=== PATIENT | female | born 1940 | race Caucasian/White ===

== ENCOUNTER → 2017-10-12 12:08 | Outpatient (CLI) | payer MEDICARE, OTHER, SELFPAY ==
[2017-10-12 13:07] LABS: Alanine Aminotransferase 17 U/L (12-78); Albumin Level 3.5 gm/dL (3.4-5.0); Albumin/Globulin Ratio 0.9 (1.1-1.8); Anion Gap 9.8 mEq/L (5-15); Aspartate Amino Transferase 12 U/L (15-37); Bilirubin,Total 0.4 mg/dL (0.2-1.0); Blood Urea Nitrogen 16 mg/dL (7-18); Calcium 8.7 mg/dL (8.5-10.1); Carbon Dioxide 27 mmol/L (21.0-32.0); Chloride 102 mmol/L (98-107); Creatinine,Serum 0.64 mg/dL (0.55-1.02); Estimated Glomerular Filt Rate 90 ml/min (>60); GFR (African American) 109 ML/MIN (>60); Globulin 3.9 gm/dl (1.3-3.2); Glucose 138 mg/dL (74-106); Potassium 3.8 mmoL/L (3.5-5.1); Sodium 135 mmol/L (136-145); Total Protein,Serum 7.4 gm/dL (6.4-8.2); Triglycerides 100 mg/dL (30-200)
[2017-10-12 13:08] LABS: Alkaline Phosphatase 105 U/L (46-116); Chol/HDL Ratio 2.3 (1-3.5); Cholesterol 141 mg/dL (140-200); HDL Cholesterol 61 mg/dL (29-89); LDL Cholesterol 60 mg/dL (0-130); VLDL Cholesterol 20 mg/dL (0-40)
[2017-10-12 13:46] LABS: Thyroid Stimulating Hormone < 0.01 uIU/ml (0.358-3.740)
== END ==
PROVIDERS: Visit Provider Family Medicine
DX: E11.9 Type 2 diabetes mellitus without complications (principal); E78.4 Other hyperlipidemia; E03.9 Hypothyroidism, unspecified; I10 Essential (primary) hypertension
CPT/HCPCS: 36415; 80053; 80061; 83036; 84443

== ENCOUNTER → 2017-12-10 08:34 | Outpatient (CLI) | payer MEDICARE, OTHER, SELFPAY ==
--- NOTE | 2017-12-10 08:38 | XR_ITS ---
XR elbow LT min 3V Ordering Physician: Eduardo Mckinney MD Patient Age: 77 years: Female HISTORY: ITS.REASON: Left radial head fracturefollow-up fracture TECHNIQUE: 3 views left elbow COMPARISON :November 25, 2017 left elbow radiograph FINDINGS The fracture line through the radial head is remains evident but stable position. The very subtle step-off at the articular cortex of radial head again noted . Very subtle mild depression of this fracture along the lateral aspect radial head again noted but stable. Joint effusion anterior and posterior fat-pad. The distal radius intact. Ulna intact. Joint space remains well maintained. The joint effusion persist with mild elevation of anterior fat pad still evident. IMPRESSION fracture radial head. Stable position.
== END ==
PROVIDERS: PCP Family Medicine; Visit Provider Orthopaedic Surgery
DX: S52.123A Displaced fracture of head of unspecified radius, initial encounter for closed fracture (principal)
CPT/HCPCS: 73080

== ENCOUNTER → 2017-12-31 09:18 | Outpatient (CLI) | payer MEDICARE, OTHER, SELFPAY ==
--- NOTE | 2017-12-31 09:21 | XR_ITS ---
XR elbow LT min 3V HISTORY: Follow-up fracture ITS.REASON: Left radial head fracture ORDERING PHYSICIAN: Eduardo Mckinney MD PATIENT AGE: 77 years COMPARISON: 12/10/2017 FINDINGS: Nondisplaced radial head fracture once again noted with intra-articular involvement. The fracture line is somewhat less apparent indicating healing. IMPRESSION: Healing radial head fracture nondisplaced
== END ==
PROVIDERS: PCP Family Medicine; Visit Provider Orthopaedic Surgery
DX: S52.123A Displaced fracture of head of unspecified radius, initial encounter for closed fracture (principal)
CPT/HCPCS: 73080

== ENCOUNTER → 2018-03-30 10:47 | Outpatient (CLI) | payer MEDICARE, OTHER, SELFPAY ==
--- NOTE | 2018-03-30 10:50 | MM_ITS ---
MM Dig screening mamm BI w/CAD ORDERING PHYSICIAN : Isacc Roberson MD PATIENT AGE: 77 years GENDER: Female COMPARISON: October 2016 and September 2013 screening bilateral mammogram also November 2010 of INDICATION: ITS.REASON: SCREENING no hormones. No new complaints. Previous cyst aspiration with left breast with? Precancer cells? As Noted on history requires clinical correlation TECHNIQUE: Standard CC and MLO images were obtained. R2 CAD reviewed. FINDINGS: Lower density breast bilaterally with generalized fatty replacement and minimal residual fibroglandular elements Barely evident minor nodularity at or just deep to skin both inferior-most left & right breast similar to previous study. No significant new findings or change. Minor Benign feature can be followed. No significant new areas concern. No suspicious mass. No dominant mass. No subdural suspicious calcifications. IMPRESSION: No new findings of significant concern. . Stable mammogram vs last year study Follow follow-up in one year recommended BI-RADS Category: 2 Benign Finding(s) RECOMMENDED FOLLOW-UP: 1YR 1 YEAR FOLLOW-UP (A letter has been sent to the patient regarding results of the study.)
== END ==
PROVIDERS: PCP Family Medicine; Visit Provider Family Medicine
DX: Z12.31 Encounter for screening mammogram for malignant neoplasm of breast (principal)
CPT/HCPCS: 77067

== ENCOUNTER → 2018-04-11 09:22 | Outpatient (CLI) | payer MEDICARE, OTHER, SELFPAY ==
--- NOTE | 2018-04-11 09:27 | XR_ITS ---
. DEXA DEXA SCAN.-BONE DENSITY STUDY HIPS AND LUMBAR SPINE HISTORY: Postmenopausal female 77-year-old female takes thyroid medication. Previous arm fracture 10 years ago TECHNIQUE: DEXA scan hip and lumbar spine The most complete data summary and color graphic presentation of the today's ( and any prior ) DEXA findings are available in PACS. Definition and treatment guidelines included. COMPARISON: None listed No previous studies. LUMBAR SPINE:.Normal bone density L2 vertebral body demonstrates the lowest T score -0.9 with BMD1.093 g/cm sq Overall mean lumbar L1-L4 T score -0.3 with BMD1.149 g/cm sq . HIPS: Femoral neck density is best predictor of hip fracture risk . Left femoral neck demonstrates the lowest T score = 2.0 with BMD0.764 g/cm sq . . Right femoral neck T score = -2.0 with BMD 0.766 Averaging all regions yields today's overall Hip Mean T score -0.9 with BMD0.89 g/cm sq .. IMPRESSION------ 1. LUMBAR SPINE: Normal bone density overall T score = -0.3; & each individual vertebral with normal bone density 2. HIPS: Overall normal bone density, Both right & left femoral neck T score = -2.0 reflecting osteopenia WHO criteria for post-menopausal, Women: Normal: T-score at or above -1 SD Osteopenia: T-score between -1 and -2.5 SD Osteoporosis: T-score at or below -2.5 SD
[2018-04-11 11:13] LABS: Hemoglobin A1C 7.5 % (0.0-7.0)
[2018-04-11 11:45] LABS: Alanine Aminotransferase 18 U/L (12-78); Albumin Level 3.7 gm/dL (3.4-5.0); Albumin/Globulin Ratio 1.1 (1.1-1.8); Alkaline Phosphatase 105 U/L (46-116); Anion Gap 12.2 mEq/L (5-15); Aspartate Amino Transferase 10 U/L (15-37); Bilirubin,Total 0.4 mg/dL (0.2-1.0); Blood Urea Nitrogen 9 mg/dL (7-18); Calcium 8.7 mg/dL (8.5-10.1); Carbon Dioxide 29 mmol/L (21.0-32.0); Chloride 106 mmol/L (98-107); Chol/HDL Ratio 2.8 (1-3.5); Cholesterol 171 mg/dL (140-200); Creatinine,Serum 0.67 mg/dL (0.55-1.02); Estimated Glomerular Filt Rate 86 ml/min (>60); GFR (African American) 104 ML/MIN (>60); Globulin 3.5 gm/dl (1.3-3.2); Glucose 170 mg/dL (74-106); HDL Cholesterol 61 mg/dL (29-89); LDL Cholesterol 81 mg/dL (0-130); Potassium 4.2 mmoL/L (3.5-5.1); Sodium 143 mmol/L (136-145); Thyroid Stimulating Hormone 0.66 uIU/ml (0.358-3.740); Total Protein,Serum 7.2 gm/dL (6.4-8.2); Triglycerides 143 mg/dL (30-200); VLDL Cholesterol 29 mg/dL (0-40)
== END ==
PROVIDERS: PCP Family Medicine; Visit Provider Family Medicine
DX: S42.402S Unspecified fracture of lower end of left humerus, sequela (principal); E11.9 Type 2 diabetes mellitus without complications; E03.9 Hypothyroidism, unspecified; I10 Essential (primary) hypertension; Z78.0 Asymptomatic menopausal state
CPT/HCPCS: 36415; 77080; 80053; 80061; 83036; 84443

== ENCOUNTER → 2018-05-26 12:06 | Outpatient (CLI) | payer MEDICARE, OTHER, SELFPAY ==
--- NOTE | 2018-05-26 12:11 | XR_ITS ---
XR knee RT 4V HISTORY: Anterior right knee pain, history of prior injury ITS.REASON: 4 views weightbearing ORDERING PHYSICIAN: Aly Hummel MD PATIENT AGE: 77 years COMPARISON: None FINDINGS: No acute fracture or dislocation is evident. There are severe osteoarthritic changes of the medial compartment and patellofemoral joint with loss of joint space medially and prominent osteophytes medially and at the patellofemoral joint. There is mild medial angulation of the tibia. IMPRESSION: Severe osteoarthritis of the medial compartment and patellofemoral joint
== END ==
PROVIDERS: PCP Family Medicine; Visit Provider Orthopaedic Surgery
DX: M25.561 Pain in right knee (principal)
CPT/HCPCS: 73564

== ENCOUNTER → 2018-08-10 12:48 | Outpatient (POV) | payer MEDICARE, OTHER, SELFPAY | DX: Z00.00 Encounter for general adult medical examination without abnormal findings (principal) ==

== ENCOUNTER → 2018-09-02 11:41 | Outpatient (CLI) | payer MEDICARE, OTHER, SELFPAY ==
--- NOTE | 2018-09-02 11:48 | XR_ITS ---
XR chest 2V HISTORY: ITS.REASON: HTN ORDERING PHYSICIAN: Isacc Roberson MD PATIENT AGE: 77 years COMPARISON: 04/14/2016 FINDINGS: Unremarkable cardiovascular structures. All there is increased density overlying the left aspect of the heart and may be due to summation artifact from overlying costochondral markings and vessels. No definite lobar consolidation or collapse. There is ankylosis of the thoracic spine with no acute fracture. There are degenerative changes of the acromioclavicular joints. IMPRESSION: No acute finding
== END ==
PROVIDERS: PCP Family Medicine; Visit Provider Family Medicine
DX: Z01.810 Encounter for preprocedural cardiovascular examination (principal)
CPT/HCPCS: 71046; 93005

== ENCOUNTER → 2018-10-04 13:44 | Outpatient (CLI) | payer MEDICARE, OTHER, SELFPAY ==
[2018-10-04 13:47] LABS: Microscopic, Urine URINE MICROSCOPIC (MICROSCOPIC)
[2018-10-04 14:01] LABS: Appearance,Urine CLEAR (Clear); Bilirubin,Urine Negative (Negative); Blood, Urine Negative (Negative); Color,Urine YELLOW (Yellow); Glucose,Urine (UA) Negative (Negative); Ketones,Urine Negative (Negative); Leukocyte Esterase,Urine Negative (Negative); Nitrate,Urine Negative (Negative); Protein,Urine 1+ (Negative); Specific Gravity, Urine 1.015 (1.005-1.030); Urobilinogen,Urine 0.2 EU/dl (0.2)
[2018-10-04 14:07] LABS: Basophils % 0.6 % (0.1-2.0); Eosinophils # 0.1 K/mm3 (0.0-0.4); Eosinophils % 2.1 % (0.1-12.0); Hematocrit 39.2 % (37.0-47.0); Hemoglobin 12.7 g/dL (12.2-16.2); Lymphocytes # 2.1 K/mm3 (0.7-4.5); Lymphocytes % 32.5 % (10-50); Mean Corpuscular HGB Conc 32.5 g/dL (31.8-35.4); Mean Corpuscular Hemoglobin 29.3 pg (27.0-31.2); Mean Corpuscular Volume 90.2 fl (81-99); Mean Platelet Volume 7.2 fl (7.4-10.4); Monocytes # 0.4 K/mm3 (0.1-1.0); Monocytes % 5.6 % (1.7-9.3); Neutrophils # 3.7 K/mm3 (1.8-7.8); Neutrophils % 59.2 % (37.0-80.0); Platelet Count 317 K/mm3 (142-424); Red Blood Count 4.34 M/mm3 (4.20-5.40); Red Cell Distribution Width 13.9 % (11.5-17.5); White Blood Count 6.3 K/mm3 (4.8-10.8)
[2018-10-04 14:08] LABS: Bacteria,Urine Trace /lpf; Squamous Epithelial Cell,Urine Occasional #/hpf (0-5); WBC,Urine Occasional #/hpf (0-3)
[2018-10-04 15:15] LABS: Alanine Aminotransferase 18 U/L (12-78); Albumin Level 3.8 gm/dL (3.4-5.0); Alkaline Phosphatase 105 U/L (46-116); Anion Gap 14.8 mEq/L (5-15); Aspartate Amino Transferase 13 U/L (15-37); Bilirubin,Total 0.4 mg/dL (0.2-1.0); Blood Urea Nitrogen 9 mg/dL (7-18); Calcium 9.6 mg/dL (8.5-10.1); Carbon Dioxide 29 mmol/L (21.0-32.0); Chloride 103 mmol/L (98-107); Creatinine,Serum 0.77 mg/dL (0.55-1.02); Estimated Glomerular Filt Rate 73 ml/min (>60); GFR (African American) 88 ML/MIN (>60); Globulin 3.7 gm/dl (1.3-3.2); Glucose 115 mg/dL (74-106); Potassium 3.8 mmoL/L (3.5-5.1); Sodium 143 mmol/L (136-145); Total Protein,Serum 7.5 gm/dL (6.4-8.2)
== END ==
PROVIDERS: Visit Provider Orthopaedic Surgery
DX: Z01.818 Encounter for other preprocedural examination (principal)
CPT/HCPCS: 36415; 80053; 81001; 85025

== ENCOUNTER 2018-10-17 06:06 | Inpatient (IN) ==
--- NOTE | 2018-10-17 07:07 | Progress Note ---
[facility] Anesthesia Checklist - Patient Identification Patient Identification: Arm Band, Verbal (Name & ) - Structural Data Admitted From: Home Planned Operative Procedure/s: Right TKA Consent for Planned Operative Procedure(s) Verified: Yes Verified Documents: Surgical Consent, History and Physical - NPO Status Verified Time NPO: 23:00 - Chart Verification Results Verified: CBC, BMP - Additional verifications Anesthesia Reactions: No - Airway Assessment C-Spine Mobility Assessed: Yes TMJ Mobility Assessed: Yes Dentition: Good Dentition (Missing teeth, crowns) - Neurological Assessment Level of Consciousness: Awake Hx Seizures: No Numbness or tingling in extremities: No - Anesthesia Plan Anesthesia Risk discussed: Yes Anesthesia Plan: Verified ASA Class: III Anesthesia Type: General (with Femoral/sciatic nerve block) [facility] History I have reviewed the patient's past medical history: Yes Medical History: Reports:: Cancer, Diabetes Mellitus Type 2, Hyperlipidemia, Hypertension, Osteoporosis Denies:: Aneurysm, Anxiety, Arrhythmia, Atrial Fibrillation, Chronic Obstructive Pulmonary Disease (COPD), Cerebrovascular Accident, Diabetes Mellitus Type 1, Internal Pacemaker, MRSA, Myocardial Infarction, Seizures *Have you ever received a pneumonia vaccine?: Yes *Have you received a flu vaccine this season?: Yes Other Medical History: Reports: Arthritis, Hypothyroidism, Osteoporosis, Other (Obesity). Denies: Blood Transfusion Reaction Laterality Cases: Left: Total Knee Replacement, Right: Arthroscopy Knee Other Surgeries: Yes: Hysterectomy-Total, Thyroidectomy. No: Pacemaker Amputation: No Fractures: No - *Social History Educational Level: Completed High School Smoking Status: Never smoker Alcohol Intake: never Alcohol Intake Frequency:: other *Occupational Status:: retired Housing: house Household Members: none *Travel in the last 8 weeks: None - Psychiatric History Expresses thoughts of harming self/others: None Suicide Plan Description: No Plan Pschychiatric History:: Denies:: Anxiety Yazidi Healthcare Practices: Jehovah Witness, no blood products Family Hx:: Cancer, Diabetes
--- NOTE | 2018-10-17 11:43 | Progress Note ---
[facility] Anesthesia Record Part I Intake, IV Amount: 2,200 Estimated blood loss (mL): 125 Urine output (mL): 400 Blood Pressure: 151/78 SaO2: 93 Pulse Rate: 89 Respiratory Rate: 12 Temperature: 99 F Patient is:: Awake, Stable Stable to PACU at:: 11:40
--- NOTE | 2018-10-17 11:44 | Progress Note ---
[facility] Anesthesia Record Part II Discharge Time: 12:10 Destination: floor PACU nurse assessment reviewed?: Yes Patient Condition:: Good Anesthesia Complications:: None Swallowing reflex intact?: Yes Cyanosis?: No
--- NOTE | 2018-10-17 12:49 | Operative Note ---
Date of procedure: 10/17/18 Pre-op Diagnosis:: Advanced degenerative arthritis, right knee Post-op Diagnosis:: Advanced degenerative arthritis, right knee Procedure performed:: Cemented total knee arthroplasty, right Surgeon:: Aly Hummel MD Entertainer Or Variety Artist(s):: Estefani Blas DISTRIBUTOR OPERATOR:: Dennis Ash Anesthesia: GETA, regional Estimated blood loss (mL): 20 Clinical Note:: Patient is a 78-year-old female with end-stage osteoarthritis and [id number] tricompartmental osteoarthritis with a progressive varus deformity and flexion contracture presented with unremitting severe pain not relieved by conservative management. The pain is advanced to the point that it is becoming a hazard for her with risk of falling and injuring herself. Total knee arthroplasty is indicated to relieve the pain, improve function, reduce the risk of falls and improve quality of life. She previously had a successful total knee arthroplasty on the left side few years ago. Please refer to my office note for full details. Operative findings:: As noted on the preoperative evaluation, the knee joint had a 15 degrees of f ixed flexion and fixed varus deformity. Preoperative knee range of flexion under anesthesia was 15-100 of flexion only. As seen on the x-rays, there are advanced degenerative changes over all 3 compartments with [id number] appearance; the medial and patellar compartments are the most severely involved of the 3 compartments. The menisci and cruciate ligaments are significantly degenerated. There is extensive osteophyte formation over all 3 compartments. The intercondylar notch was almost obliterated and filled with osteophytes. There were also significant osteophytes over the posterior aspect of the femoral condyles. Overall bone quality is good. Operative note:: On the day of the surgery the patient and her family were seen in the preoperative area. I have reviewed the clinical and x-ray findings with the patient. I again discussed the diagnosis, natural history and management options in detail including both nonsurgical and surgical. She has end-stage degenerative arthritis of her RIGHT knee and has failed to respond satisfactorily to conservative management so far and has opted for a RIGHT total knee arthroplasty. She has had a successful left total knee arthroplasty few years ago. Her right knee joint is stiff and painful, and is limiting her mobility, ADLs and quality of life. Also her right knee gives out and she is at risk of falls resulting in fractures. She mobilizes with a cane as needed. We again discussed the details of the procedure, risks and benefits and alternatives in detail. The complications discussed include but are not limited to infection, injury to nerves and blood vessels including injury to popliteal artery, injury to tendons and ligaments, DVT and PE, fat embolism, intraoperative fracture, limb length inequality, patella fracture, patellofemoral instability, patellar clunk syndrome, quadriceps and patellar tendon rupture, implant failure, component loosening, periprosthetic femur and tibia fractures, stiffness(arthrofibrosis), limp, incomplete relief of pain, incomplete functional recovery, likely need for further surgery in future including revision and anesthetic complications including heart attack, stroke and even . We discussed how any of these events can be devastating. Patient is Gnosticism and indicated to us that she does not want to receive any blood transfusion or blood products. We have discussed nonsurgical alternatives as well. Patient understands wishes to proceed with a RIGHT total knee arthroplasty and I believe that she is fully informed as to the risks, benefits, and alternatives including nonsurgical alternatives. We also discussed the postoperative course including the rehab and physical therapy required. She lives by herself and wants to go to a assisted facility for rehab after surgery. A physical examination was performed and documented. Patient understood the risks, agreed to proceed with surgery, signed the consent form and no guarantees or assurances were given or implied. The limb was appropriately marked and initialed by me. The patient was then brought to the operating room and a general anesthesia was administered by the tech brazer tester. Prior to that she had femoral and sciatic nerve blocks in the pre-anesthetic area. The patient was then positioned supine on the operating table. All the bony prominences were appropriately padded. A well-padded tourniquet cuff was placed high over the upper thigh. The RIGHT knee was then prepped with isopropyl alcohol followed by chlorhexidine and draped in the usual sterile fashion. Prior to this, patient had used Hibiclens for a total of 5 days prior to the surgery and also used topical intranasal Bactroban. The entire operative team wore isolation suits and the Operating Room traffic was controlled. The skin incision was marked for a medial parapatellar approach to the knee joint. The entire operative site was sealed off with Ioban drape. A preprocedure timeout was performed as per hospital protocol. At the start of the procedure administration of 2 g of prophylactic IV Ancef was confirmed with the anesthetic team. Also patient received 1 g of IV tranexamic acid before starting the procedure to reduce the postoperative blood loss. A preprocedure timeout was performed as per hospital protocol. The limb was exsanguinated with Esmarch bandage, the knee joint flexed beyond 90 and the tourniquet cuff was inflated to 325 mm Hg. Please see the nursing records for a total tourniquet time. I then made a midline incision utilizing a #10 scalpel blade. Electrocautery was used to seal off subcutaneous vessels. The extensor mechanism was exposed, marked and a curvilinear incision made for a medial parapatellar approach using the scalpel blade. The patella was everted carefully and the fat pad resected to allow sufficient visualization of the proximal tibia. Extensive osteophyte formation was noted over all 3 compartments. The osteophytes were removed with rongeurs. The intercondylar notch was filled with osteophytes and the anterior cruciate ligament noted to be degenerative. The menisci were also degenerate and the anterior aspects of both menisci were r esected. An appropriate medial release was performed with the knife and Valerie elevator. A step drill was used to open the intramedullary canal and the distal cutting guide was placed. The jig was pinned into position and the intramedullary guide michela removed. The distal cut was made at 5 degrees of valgus and then the posterior referencing sizing jig was placed. The femur sized best at a size 6 femur for the David persona system. Drill holes were made for the 4-in-1 cutting block in 3 degrees of external rotation. We then placed the 4-in-1 cutting block in position and the cross pins were added stabilizing the block. The natalie wing utilized to ensure notching of the anterior cortex would not occur. The anterior cut was made followed by the posterior cut then the posterior chamfer and finally the anterior chamfer cuts in that order. Soft tissue was protected throughout with careful retraction using the Z retractors. We checked for trueness of the cuts and then moved on to the tibia. The extra medullary guide was placed and aligned from the medial one third of the tibial plateau down to the second metatarsal base. We pinned cutting block in position for minimal resection of the tibia from the medial side which was more severely involved with arthritis, checked the alignment, protected the soft tissues with appropriate retractors and resected with the Lex saw. The resected tibial plateau articular surface was removed and sized it at a size F. We ensured correctness of the cut and correct posterior slope and carefully preserved the posterior cruciate ligament. Using the laminar furnace caretaker to distract the bones, we carefully resected the remaining portions of the medial and lateral menisci, removed the osteophytes from the posterior femoral condyles and the medial tibial plateau. We then checked the flexion and extension gaps and found them to be equal and well balanced. We trialed the femur and the tibia with a polyethylene insert and ranged the knee to ensure full flexion and extension and checked for ligamentous stability. We then everted the patella and measured the thickness with calipers. The patella measured 21 mm thick and a minimal resection (8mm) of the patella was carried out using the appropriate cutting guide. I then made the holes for a 3 pegged patellar button using the patella peg drill guide. We had lateralized the femur and medialized the patella intentionally for a better patellar tracking. We placed trial components and noted that a 12 mm thick polyethylene to fit best. This gave us appropriate range of motion with proper ligamentous stability. We allowed this to be free- floating and then checked it and made sure it was in appropriate position in relation to the tibial tubercle. We also used tibial alignment michela to check for satisfactory position of the base plate and markings were made with electrocautery on the proximal tibia. We then completed the femoral preparation by making lug holes for the femoral component and removed the trial components leaving the tibial baseplate in position. I then pinned the tibial base plate to the top of the tibia in correct alignment and completed the drilling and broaching of the proximal tibia. We then removed the baseplate and drilled multiple holes into the subchondral sclerotic bone of the medial tibia with a small trocar tipped pin to augment cement fixation. I then placed an appropriately prepared bone plug into the hole in the distal femur. I then copiously irrigated the knee with pulse lavage and then dried the cut surfaces. We then cemented the tibial tray, the femoral component, and placed a 12 mm trial polyethylene insert and brought the knee into full extension. We then cemented the 3 pegged patella button and held it with a clamp. We allowed the ce ment to set and then inspected the knee joint and removed excess cement with an osteotome. We then placed the 12 mm definitive polyethylene tibial insert ensuring that the dovetails fit appropriately and that the polyethylene was down and seated into the tibial tray properly. The knee joint was put through range of motion and noted to be stable in both AP and ML direction; the patella was noted to be tracking appropriately with no thumb technique. The knee joint was then soaked with dilute Betadine (0.35 percent) solution for 3 minutes followed by suctioning of the solution and pulsatile lavage with the 1 L of normal saline. The tourniquet was deflated and hemostasis obtained with diathermy cautery. Another gram of tranexamic acid was given intravenously by the tech brazer tester at the time of deflating the tourniquet. The knee joint was again thoroughly irrigated with the pulse lavage and good hemostasis was confirmed before proceeding with wound closure. The capsule/extensor mechanism w as closed with #1 Vicryl [id number] sutures ensuring a watertight closure. Next the subcutaneous tissue was closed with 2-0 Vicryl interrupted sutures. The skin was closed with subcuticular 4-0 Monocryl sutures, Dermabond and Steri- Strips. Sterile dressings were applied consisting of Silverlon dressing, ABDs, soft roll and secured in place with Klever wrap. No drains were placed. The patient was then transferred from the operating table onto the bed. The tibialis posterior and dorsalis pedis pulses were noted 2+ with good capillary refill in the foot. The patient was then reversed from the anesthetic and transported to the postoperative recovery area in a stable condition. Patient tolerated the procedure well and there were no immediate complications. The swab, needle and instrument counts were correct, according to the scrub team, at the end of the procedure. Portable x-rays of the RIGHT knee 3 views were obtained in the recovery area which showed the components were well fixed in a satisfactory position without any complications. The knee was placed in a knee immobilizer which should be continued when standing and walking, until she regains full quadriceps control. Postoperatively, institute and continue standard precautions and physical therapy for a standard total knee arthroplasty starting on postoperative day 1. Patient can be mobilized full weightbearing as tolerate d. Implants: David Persona, 5 degrees stemmed RIGHT tibial baseplate- size F David Persona all poly-patellar component- 32 mm/8.5 mm David Persona cruciate-retaining standard femoral component, size 6 RIGHT David Persona Vivacit-E highly cross-linked polyethylene Medial Congruent articular surface,RIGHT size E-F/CR x 12 mm Biomet Refobacin bone cement R x2. Industry sales representative door to door: Michael Li ([employer]) Condition: stable Disposition: PACU Specimens:: None Complications:: None
--- NOTE | 2018-10-17 13:08 | Pharmacy Consult Notes ---
[facility] Pharmacy VTE Monitoring - Patient Demographics Admission date: 10/17/18 Report Date: 10/17/18 Time: 13:08 Allergies/Adverse Reactions: Patient Allergies Sulfa (Sulfonamide Antibiotics) [SULFA (SULFONAMIDE ANTIBIOTICS)] Allergy (Mild, Verified 10/14/18 11:49) Hives trimethoprim [From BACTRIM] Allergy (Mild, Verified 10/14/18 11:49) Hives Height: 1.47 m Weight: 76.374 kg - VTE Risk Was VTE Risk Assessment Performed: Yes VTE Score: 6 VTE Risk Level: Moderate Risk - Prophylaxis VTE Prophylaxis Ordered?: Yes Types of VTE Prophylaxis: IPCS Thigh High, Pharmacological Pharmacologic Type: Other (XARELTO) - VTE Diagnosis Confirmed Treatment or plan recommended: Continue Current Treatment
--- NOTE | 2018-10-17 17:19 | Consult Report ---
*Admission Date: 10/17/18 *Chief complaint: S/p total knee replacement *History of present illness: Ms. Ash is a 78-year-old white female with hypertension, diabetes, hyperlipidemia, hypothyroidism, and osteoarthritis. She underwent right total knee arthroplasty per Dr. Hummel today and has been admitted for postop care and rehab. I have been consulted to follow the patient medically and to manage her chronic medical issues. Surgery was relatively uneventful. She is now about 6 hours postop and has no unusual complaints. [facility] [place] History Medical History: Reports:: Diabetes Mellitus Type 2, Gastroesophageal Reflux Disease(GERD), Hyperlipidemia, Hypertension, Osteoporosis Denies:: Aneurysm, Anxiety, Arrhythmia, Atrial Fibrillation, Cancer, Chronic Obstructive Pulmonary Disease (COPD), Cerebrovascular Accident, Diabetes Mellitus Type 1, Internal Pacemaker, MRSA, Myocardial Infarction, Seizures *Have you ever received a pneumonia vaccine?: Yes *Have you received a flu vaccine this season?: Yes Other Medical History: Reports: Arthritis, Hypothyroidism, Osteoporosis, Other (Obesity). Denies: Blood Transfusion Reaction Laterality Cases: Right: Arthroscopy Knee, Bilateral: Total Knee Replacement Other Surgeries: Yes: Hysterectomy-Total (ovaries preserved), Thyroidectomy. No: Pacemaker Amputation: No Fractures: No - *Social History Educational Level: Completed High School Smoking Status: Never smoker Alcohol Intake: never Alcohol Intake Frequency:: other *Occupational Status:: retired Housing: house Household Members: none *Travel in the last 8 weeks: None - Psychiatric History Expresses thoughts of harming self/others: None Suicide Plan Description: No Plan Pschychiatric History:: Reports:: Depression Denies:: Anxiety Denominational Healthcare Practices: Jehovah Witness, no blood products Family Hx:: Cancer, Diabetes Review of Systems - Constitutional Denies fever(s), Denies weight gain, Denies weight loss - Eyes Denies change in vision - ENT Denies bleeding gums, Denies difficulty swallowing - *Cardiovascular Denies chest pain, Denies shortness of breath, Denies irregular heart rhythm - *Respiratory Denies chest congestion, Denies cough, Denies shortness of breath - *Gastrointestinal Denies abdominal pain, Denies change in bowel habits, Denies heartburn - *Genitourinary Denies abnormal vaginal bleeding, Denies pelvic pain, Denies urinary urgency - *Musculoskeletal Reports joint pain (right knee), Denies muscle weakness - Integumentary/Breasts Denies change in skin color, Denies unusual bruising - *Neurologic Denies confusion, Denies memory loss, Denies dizziness - Psychiatric Reports depression, Denies anxiety - Endocrine Denies cold intolerance, Denies heat intolerance, Denies rapid, pounding, or irregular heartbeat - Hematologic/Lymphatic Denies easy bruising - Allergic/Immunologic Reports seasonal runny nose Meds Home Medications Medication Instructions Recorded Confirmed Type amlodipine 10 mg tablet 10 mg PO DAILY 90 Days tab 08/17/17 10/14/18 History bimatoprost 0.01 % eye drops 1 drop OPHTHALMIC HS 90 Days 08/17/17 10/17/18 History brimonidine-timolol 0.2 %-0.5 % 1 drop OPHTHALMIC BID 56 Days 08/17/17 10/14/18 History eye drops fluoxetine 20 mg capsule 20 mg PO DAILY 90 Days cap 08/17/17 10/14/18 History metformin 1,000 mg tablet 1,000 mg PO BID 90 Days tab 08/17/17 10/17/18 History pravastatin 40 mg tablet 40 mg PO HS 90 Days 10/14/17 10/17/18 History Diclofenac Sodium [Voltaren 100gm 2 g TOPICAL QID 10/14/18 10/14/18 History Topical Gel] Ferrous Sulfate [Ferrous Sulfate 325 mg PO BID 10/17/18 10/17/18 History 325mg Tablet] Latanoprost [Xalatan 0.005% Ophth 1 drop OP HS 10/17/18 10/17/18 History Soln 2.5mL] Levothyroxine Sodium 50 mcg PO DAILY 10/17/18 10/17/18 History [Levothyroxine 50mcg (0.05mg) Tab] Meclizine HCl [Meclizine 25mg Tab] 25 mg PO DAILYP PRN 10/17/18 10/17/18 History Pioglitazone HCl 30 mg PO DAILY 10/17/18 10/17/18 History Allergies Allergy/AdvReac Type Severity Reaction Status Date / Time Sulfa (Sulfonamide Allergy Mild Hives Verified 10/14/18 11:49 Antibiotics) [SULFA (SULFONAMIDE ANTIBIOTICS)] trimethoprim [From BACTRIM] Allergy Mild Hives Verified 10/14/18 11:49 Exam Vital signs and Labs for Last 24 Hours: Temp Pulse Resp BP Pulse Ox 97.9 F 83 18 173/80 H 93 L 10/17/18 13:17 10/17/18 13:17 10/17/18 13:17 10/17/18 13:17 10/17/18 13:17 Laboratory Results - last 24 hr 10/17/18 06:42: Blood Type O Negative, Antibody Screen Negative 10/17/18 06:43: POC Glucose 133 H 10/17/18 07:45: Urine Color Yellow, Urine Appearance Clear, Urine pH 7.5, Ur Specific [place] 1.010, Urine Protein Trace, Urine Glucose (UA) Negative, Urine Ketones Negative, Urine Blood Negative, Urine Nitrate Negative, Urine Bilirubin Negative, Urine Urobilinogen 0.2, Ur Leukocyte Esterase Negative, Urine RBC None, Urine WBC None, Ur Squamous Epith Cells None, Urine Bacteria Trace I & O for Last 24 hours: Intake & Output 10/15/18 10/16/18 10/17/18 10/18/18 11:59 11:59 11:59 11:59 Intake Total 2200 / 2200 200 / 200 Output Total 800 / 800 Balance 2200 / 2200 -600 / -600 Weight 151 lb 168 lb 6 oz Narrative: She is resting comfortably in bed. She is drowsy but easily aroused. She is alert and oriented. Color is slightly pale. HEENT is unremarkable except for dry mucous membranes. Neck is supple with no adenopathy, thyromegaly, or bruits. Lungs are clear to auscultation anteriorly. Heart is regular with no murmurs. Abdomen is soft and nondistended with no unusual masses or tenderness. Bowel sounds are present. Lower extremities show no edema. Right knee with surgical dressing in place and polar pack in place. Internal Medicine - CN: Reslt - Labs Labs: Urine 10/17/18 Range/Units 07:45 Urine Color Yellow (Yellow) Urine Appearance Clear (Clear) Urine pH 7.5 (5.0-8.5) Ur Specific [place] 1.010 (1.005-1.030) Urine Protein Trace (Negative) Urine Glucose (UA) Negative (Negative) Assessment and Plan (1) Status post total right knee replacement Current visit: Yes Status: Acute Category: Surgical Code(s): Z96.651 - Presence of right artificial knee joint (2) History of total left knee replacement Current visit: Yes Status: Acute Category: Surgical Code(s): Z96.652 - Presence of left artificial knee joint (3) Type 2 diabetes mellitus Current visit: Yes Status: Acute Category: Medical Code(s): E11.9 - Type 2 diabetes mellitus without complications (4) Hypertension Current visit: Yes Status: Acute Category: Medical Code(s): I10 - Essential (primary) hypertension (5) Hyperlipidemia Current visit: Yes Status: Acute Category: Medical Code(s): E78.5 - Hyperlipidemia, unspecified (6) Hypothyroidism Current visit: Yes Status: Acute Category: Medical Code(s): E03.9 - Hypothyroidism, unspecified (7) Depression Current visit: Yes Status: Acute Category: Medical Code(s): F32.9 - Major depressive disorder, single episode, unspecified (8) Osteoarthritis Current visit: Yes Status: Acute Category: Medical Code(s): M19.90 - Unspecified osteoarthritis, unspecified site (9) History of histoplasmosis Current visit: Yes Status: Acute Category: Medical Code(s): Z86.19 - Personal history of other infectious and parasitic diseases (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 Her maintenance home medications have been reordered appropriately. She will be switched to a diabetic diet. She will also be placed on sliding scale insulin with AC/HS blood sugar checks. Xarelto has been ordered for DVT prophylaxis. Dr. Hummel will manage her physical therapy. We will follow for management of any medical issues that may arise.
[2018-10-18 05:53] LABS: Basophils % 0.3 % (0.1-2.0); Eosinophils % 0.5 % (0.1-12.0); Hemoglobin 11.4 g/dL (12.2-16.2); Lymphocytes # 1.5 K/mm3 (0.7-4.5); Lymphocytes % 17.3 % (10-50); Mean Corpuscular HGB Conc 32.6 g/dL (31.8-35.4); Mean Corpuscular Hemoglobin 28.9 pg (27.0-31.2); Mean Corpuscular Volume 88.5 fl (81-99); Mean Platelet Volume 7.3 fl (7.4-10.4); Monocytes # 0.7 K/mm3 (0.1-1.0); Monocytes % 7.6 % (1.7-9.3); Neutrophils # 6.4 K/mm3 (1.8-7.8); Neutrophils % 74.3 % (37.0-80.0); Platelet Count 309 K/mm3 (142-424); Red Blood Count 3.95 M/mm3 (4.20-5.40); Red Cell Distribution Width 14.1 % (11.5-17.5); White Blood Count 8.6 K/mm3 (4.8-10.8)
[2018-10-18 06:02] LABS: Anion Gap 14.5 mEq/L (5-15); Calcium 8.1 mg/dL (8.5-10.1); Potassium 3.5 mmoL/L (3.5-5.1)
--- NOTE | 2018-10-18 08:28 | Progress Note ---
Internal Medicine - PN: Subj Interval history: She has no unusual complaints this morning. She rested fairly well through the night. She is having appropriate postoperative knee pain which has been managed with the oral hydrocodone. She is tolerating her diet. Blood sugars have been a bit elevated but managed with sliding scale insulin. Also note that her blood pressure has been high. Exam Vital signs and Labs for Last 24 Hours: Temp Pulse Resp BP Pulse Ox 97.9 F 85 20 155/7 H 93 L 10/18/18 07:30 10/18/18 07:30 10/18/18 07:30 10/18/18 07:30 10/18/18 07:30 Laboratory Results - last 24 hr 10/17/18 06:43: POC Glucose 133 H 10/17/18 07:45: Urine Color Yellow, Urine Appearance Clear, Urine pH 7.5, Ur Specific [place] 1.010, Urine Protein Trace, Urine Glucose (UA) Negative, Urine Ketones Negative, Urine Blood Negative, Urine Nitrate Negative, Urine Bilirubin Negative, Urine Urobilinogen 0.2, Ur Leukocyte Esterase Negative, Urine RBC None, Urine WBC None, Ur Squamous Epith Cells None, Urine Bacteria Trace 10/17/18 20:23: POC Glucose 104 10/18/18 05:35: WBC 8.6, RBC 3.95 L, Hgb 11.4 L, Hct 35.0 L, MCV 88.5, MCH 28.9, MCHC 32.6, RDW 14.1, Plt Count 309, MPV 7.3 L, Neut % (Auto) 74.3, Lymph % (Auto) 17.3, [place] % (Auto) 7.6, Eos % (Auto) 0.5, Baso % (Auto) 0.3, Neut # (Auto) 6.4, Lymph # (Auto) 1.5, [place] # (Auto) 0.7, Eos # (Auto) 0.0, Baso # (Auto) 0.0 10/18/18 05:35: Sodium 142, Potassium 3.5, Chloride 104, Carbon Dioxide 27, Anion Gap 14.5, BUN 7, Creatinine 0.84, Estimated Creat Clear 58, Estimated GFR 66, Est GFR ( Amer) 80, Glucose 162 H, Calcium 8.1 L 10/18/18 06:32: POC Glucose 180 H I & O for Last 24 hours: Intake & Output 10/15/18 10/16/18 10/17/18 10/18/18 11:59 11:59 11:59 11:59 Intake Total 2199 / 2199 Output Total 3200 / 3200 Balance 2199 -1188 / -1188 Weight 151 lb 168 lb 6 oz Narrative: She is alert and oriented. Appears in no distress. Lungs are clear. Heart is regular with no ectopy. Abdomen soft and nontender. Right lower extremity shows trace edema. Surgical dressing in place on the right knee. Assessment and Plan (1) Status post total right knee replacement Current visit: Yes Status: Acute Category: Surgical Code(s): Z96.651 - Presence of right artificial knee joint (2) History of total left knee replacement Current visit: Yes Status: Acute Category: Surgical Code(s): Z96.652 - Presence of left artificial knee joint (3) Type 2 diabetes mellitus Current visit: Yes Status: Acute Category: Medical Code(s): E11.9 - Type 2 diabetes mellitus without complications (4) Hypertension Current visit: Yes Status: Acute Category: Medical Code(s): I10 - Essential (primary) hypertension (5) Hyperlipidemia Current visit: Yes Status: Acute Category: Medical Code(s): E78.5 - Hyperlipidemia, unspecified (6) Hypothyroidism Current visit: Yes Status: Acute Category: Medical Code(s): E03.9 - Hypothyroidism, unspecified (7) Depression Current visit: Yes Status: Acute Category: Medical Code(s): F32.9 - Major depressive disorder, single episode, unspecified (8) Osteoarthritis Current visit: Yes Status: Acute Category: Medical Code(s): M19.90 - Uns pecified osteoarthritis, unspecified site (9) History of histoplasmosis Current visit: Yes Status: Acute Category: Medical Code(s): Z86.19 - Personal history of other infectious and parasitic diseases (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 We will add lisinopril to her antihypertensive regimen and continue to monitor her blood pressure closely.
--- NOTE | 2018-10-18 16:14 | Progress Note ---
Subjective Date: 10/18/18 Time: 12:30 Principal diagnosis: Status post total knee arthroplasty, right Interval history: Patient is status post right knee arthroplasty, postoperative day 1. Patient is sitting out on a chair. She says she is doing well and her pain is well controlled with pain medication. No history of any nausea or vomiting. No history of any cough, chest pain, shortness of breath or palpitations. Patient says she is eating and drinking well. PN: Obj Ex Vital signs: Temp Pulse Resp BP Pulse Ox 98.1 F 67 16 138/57 L 92 L 10/18/18 16:00 10/18/18 16:00 10/18/18 16:00 10/18/18 16:00 10/18/18 16:00 Narrative: Laboratory Results - last 24 hr 10/17/18 20:23: POC Glucose 104 10/18/18 05:35: WBC 8.6, RBC 3.95 L, Hgb 11.4 L, Hct 35.0 L, MCV 88.5, MCH 28.9, MCHC 32.6, RDW 14.1, Plt Count 309, MPV 7.3 L, Neut % (Auto) 74.3, Lymph % (Auto) 17.3, [place] % (Auto) 7.6, Eos % (Auto) 0.5, Baso % (Auto) 0.3, Neut # (Auto) 6.4, Lymph # (Auto) 1.5, [place] # (Auto) 0.7, Eos # (Auto) 0.0, Baso # (Auto) 0.0 10/18/18 05:35: Sodium 142, Potassium 3.5, Chloride 104, Carbon Dioxide 27, Anion Gap 14.5, BUN 7, Creatinine 0.84, Estimated Creat Clear 58, Estimated GFR 66, Est GFR ( Amer) 80, Glucose 162 H, Calcium 8.1 L 10/18/18 06:32: POC Glucose 180 H 10/18/18 11:30: POC Glucose 155 H Exam: General appearance: alert, active, awake Cardiovascular: regular rate & rhythm, normal peripheral pulses Respiratory: No respiratory distress noted, speaks in full sentences ABD: soft and non tender Neuro: alert, awake, oriented x 3 On examination of the lower extremities the limb lengths are equal. On examination of the right knee the dressings are clean, dry and intact. Soft tissue compartments are soft. Distal pulses are 2+. Capillary refill is brisk. Sensation is intact light touch throughout. She is actively moving the ankle, foot and the toes. - Urinary Catheter Management Stanton Cath placed during this visit: yes Urethral indwelling: Yes Reason for continuing: Surgical procedure Insertion date: 10/17/18 Insertion time: 07:45 Progress Note: A&P (1) Status post total right knee replacement Status: Acute Current Visit: Yes (2) History of total left knee replacement Status: Acute Current Visit: Yes (3) Type 2 diabetes mellitus Status: Acute Current Visit: Yes (4) Hypertension Status: Acute Current Visit: Yes (5) Hyperlipidemia Status: Acute Current Visit: Yes (6) Hypothyroidism Status: Acute Current Visit: Yes (7) Depression Status: Acute Current Visit: Yes (8) Osteoarthritis Status: Acute Current Visit: Yes (9) History of histoplasmosis Status: Acute Current Visit: Yes (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 I have given her a paper copy of the postoperative x-ray. Advised her to avoid placing pillow behind the knee; use knee immobilizer when weightbearing and walking until she regains full quadriceps control and is able to actively straight leg raise. Continue standard PT/OT protocol for a primary knee replacement. Continue DVT prophylaxis, incentive spirometry and as needed pain medication. Discontinue IV fluids and discontinue the urinary catheter. Care management consult regarding discharge planning. Continue medical management as per Dr. Roberson.
--- NOTE | 2018-10-19 08:25 | Progress Note ---
Internal Medicine - PN: Subj Interval history: She rested well last night. Had some nausea yesterday, resolved with Zofran. No complaints this morning. She is participating with physical therapy and tolerating well. Her bowels have not moved. Exam Vital signs and Labs for Last 24 Hours: Temp Pulse Resp BP Pulse Ox 97.7 F 81 16 131/52 L 96 10/19/18 08:00 10/19/18 08:00 10/19/18 08:00 10/19/18 08:00 10/19/18 08:00 Laboratory Results - last 24 hr 10/18/18 11:30: POC Glucose 155 H 10/18/18 16:44: POC Glucose 153 H 10/18/18 20:25: POC Glucose 154 H 10/19/18 06:36: POC Glucose 108 I & O for Last 24 hours: Intake & Output 10/16/18 10/17/18 10/18/18 10/19/18 11:59 11:59 11:59 11:59 Intake Total 2200 / 2200 2011 1286 / 1286 Output Total 3200 / 3200 800 / 800 Balance 2200 / 2200 -1188 / -1188 486 / 486 Weight 151 lb 168 lb 6 oz Narrative: Alert and oriented. Color is good. Lungs are clear to auscultation. Heart is regular. Abdomen soft and nondistended with no tenderness. Extremities show trace edema of the right leg. Assessment and Plan (1) Status post total right knee replacement Current visit: Yes Status: Acute Category: Surgical Code(s): Z96.651 - Presence of right artificial knee joint (2) History of total left knee replacement Current visit: Yes Status: Acute Category: Surgical Code(s): Z96.652 - Presence of left artificial knee joint (3) Type 2 diabetes mellitus Current visit: Yes Status: Acute Category: Medical Code(s): E11.9 - Type 2 diabetes mellitus without complications (4) Hypertension Current visit: Yes Status: Acute Category: Medical Code(s): I10 - Essential (primary) hypertension (5) Hyperlipidemia Current visit: Yes Status: Acute Category: Medical Code(s): E78.5 - Hype rlipidemia, unspecified (6) Hypothyroidism Current visit: Yes Status: Acute Category: Medical Code(s): E03.9 - Hypothyroidism, unspecified (7) Depression Current visit: Yes Status: Acute Category: Medical Code(s): F32.9 - Major depressive disorder, single episode, unspecified (8) Osteoarthritis Current visit: Yes Status: Acute Category: Medical Code(s): M19.90 - Unspecified osteoarthritis, unspecified site (9) History of histoplasmosis Current visit: Yes Status: Acute Category: Medical Code(s): Z86.19 - Personal history of other infectious and parasitic diseases (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 Blood pressure is improved since starting lisinopril. Stool softener for constipation. Dr. Hummel is planning to discharge her to a swing bed tomorrow for ongoing rehab.
--- NOTE | 2018-10-19 15:49 | Progress Note ---
Subjective Date: 10/19/18 Time: 14:00 Principal diagnosis: Status post total knee arthroplasty, right Interval history: Patient is status post right total knee arthroplasty, postoperative day 2. Patient is is lying down on the bed. She says she is doing well and her pain is well controlled with pain medication. No history of any nausea or vomiting. No history of any cough, chest pain, shortness of breath or palpitations. Patient says she is eating and drinking well. She says she has mobilized well with the physical therapist today and walked all the way up and down the corridor. PN: Obj Ex Vital signs: Temp Pulse Resp BP Pulse Ox 97.7 F 81 16 131/52 L 96 10/19/18 08:00 10/19/18 08:00 10/19/18 08:00 10/19/18 08:00 10/19/18 08:15 Narrative: Laboratory Results - last 24 hr 10/18/18 16:44: POC Glucose 153 H 10/18/18 20:25: POC Glucose 154 H 10/19/18 06:36: POC Glucose 108 10/19/18 11:25: POC Glucose 150 H Exam: General appearance: alert, active, awake Cardiovascular: regular rate & rhythm, normal peripheral pulses Respiratory: No respiratory distress noted, speaks in full sentences ABD: soft and non tender Neuro: alert, awake, oriented x 3 On examination of the lower extremities the limb lengths are equal. On examination of the right knee the dressings are clean, dry and intact. I have reduced the dressings today leaving only the [place] dressing in place. There is no evidence of any bleeding or discharge/strikethrough. There is minimal swelling of the knee on the lower leg as to be expected. Calf is soft and nontender. Distal pulses are 2+. Capillary refill is brisk. Sensation is intact light touch throughout. She is actively moving the ankle, foot and the toes. She just about able to lift the leg off the bed. - Urinary Catheter Management Stanton Cath placed during this visit: yes Urethral indwelling: Yes Reason for continuing: Surgical procedure Insertion date: 10/17/18 Insertion time: 07:45 Progress Note: A&P (1) Status post total right knee replacement Status: Acute Current Visit: Yes (2) History of total left knee replacement Status: Acute Current Visit: Yes (3) Type 2 diabetes mellitus Status: Acute Current Visit: Yes (4) Hypertension Status: Acute Current Visit: Yes (5) Hyperlipidemia Status: Acute Current Visit: Yes (6) Hypothyroidism Status: Acute Current Visit: Yes (7) Depression Status: Acute Current Visit: Yes (8) Osteoarthritis Status: Acute Current Visit: Yes (9) History of histoplasmosis Status: Acute Current Visit: Yes (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 Overall she is doing well and progressing as to be expected at this stage. Advised her to avoid placing pillow behind the knee; use knee immobilizer when weightbearing and walking until she regains full quadriceps control and is able to actively straight leg raise. Continue standard PT/OT as per protocol for a primary knee replacement. Continue DVT prophylaxis, incentive spirometry and as needed pain medication. Patient is likely to be discharged to swing bed status tomorrow. Continue medical management as per Dr. Roberson.
--- NOTE | 2018-10-20 08:17 | Progress Note ---
Internal Medicine - PN: Subj Interval history: No new complaints today. She tolerated physical therapy and made good progress yesterday. Pain is controlled with oral medication. No further complaints of nausea. Exam Vital signs and Labs for Last 24 Hours: Temp Pulse Resp BP Pulse Ox 98.4 F 92 H 18 137/92 H 96 10/20/18 08:00 10/20/18 08:00 10/20/18 08:00 10/20/18 08:00 10/20/18 08:00 Laboratory Results - last 24 hr 10/19/18 11:25: POC Glucose 150 H 10/19/18 16:08: POC Glucose 167 H 10/19/18 20:38: POC Glucose 89 10/20/18 06:17: POC Glucose 134 H I & O for Last 24 hours: Intake & Output 10/17/18 10/18/18 10/19/18 10/20/18 11:59 11:59 11:59 11:59 Intake Total 2200 / 2200 2011 / 2011 1286 / 1286 600 / 600 Output Total 3200 / 3200 800 / 800 675 / 675 Balance 2200 / 2200 -1188 / -1188 486 / 486 -75 / -75 Weight 151 lb 168 lb 6 oz 168 lb 6.013 oz Narrative: She is alert and pleasant and appears in no distress. Lungs are clear to auscultation. Heart is regular with no murmurs. Swelling in the right lower extremity has improved. No calf tenderness or cords. Assessment and Plan (1) Status post total right knee replacement Status: Acute Category: Surgical Code(s): Z96.651 - Presence of right artificial knee joint (2) History of total left knee replacement Status: Acute Category: Surgical Code(s): Z96.652 - Presence of left artificial knee joint (3) Type 2 diabetes mellitus Status: Acute Category: Medical Code(s): E11.9 - Type 2 diabetes mellitus without complications (4) Hypertension Status: Acute Category: Medical Code(s): I10 - Essential (primary) hypertension (5) Hyperlipidemia Status: Acute Category: Medical Code(s): E78.5 - Hyperlipidemia, unspecified (6) Hypothyroidism Status: Acute Category: Medical Code(s): E03.9 - Hypothyroidism, unspecified (7) Depression Status: Acute Category: Medical Code(s): F32.9 - Major depressive disorder, single episode, unspecified (8) Osteoarthritis Status: Acute Category: Medical Code(s): M19.90 - Unspecified osteoarthritis, unspecified site (9) History of histoplasmosis Status: Acute Category: Medical Code(s): Z86.19 - Personal history of other infectious and parasitic diseases (10) [place] blindness Status: Acute Category: Medical Code(s): B73.00 - Onchocerciasis with eye involvement, unspecified - Assessment and plan all Dx Assessment and Plan for all problems:: She is progressing well with therapy but still requires some additional rehab before she is able to return home by herself. For this reason she is being discharged to a swing bed today.
--- NOTE | 2018-10-20 08:45 | Swing Bed Reports ---
*Admission Date: 10/17/18 *Chief complaint: knee pain *History of present illness: Ms. Ash is a 78-year-old white female with hypertension, diabetes, hyperlipidemia, hypothyroidism, and osteoarthritis. She underwent right total knee arthroplasty per Dr. Hummel and was admitted for postop care and rehab. Dr. Roberson was consulted to follow the patient medically and to manage her chronic medical issues. Surgery was relatively uneventful. Hospital Course Hospital Course: The patient was stable postop and appeared comfortable with pain management. Her maintenance home medications were reordered. She was switched to a diabetic diet and placed on sliding scale insulin with AC/HS blood sugar checks. Xarelto was ordered for DVT prophylaxis. Her blood sugars were a bit elevated but this was managed with sliding scale insulin. Her blood pressure was also slightly high. Lisinopril was added to her antihypertensive regimen. Dr. Hummel ordered physical therapy. He advised her to avoid placing a pillow behind her knee and to use her knee immobilizer when weightbearing and walking until she regained full quadricep control and was able to actively straight leg raise. Her IV fluids were discontinued and her Stanton catheter was removed. The patient pa rticipated with physical therapy and was tolerating this well. Her blood pressure did improve with the addition of lisinopril. She had some constipation, therefore a stool softener was ordered. Her pain was controlled with pain medication. She was able to mobilize well with physical therapy and walked all the way up and down the hallway. Dr. Hummel felt she could be discharged to a swing bed for continued rehab. She was discharged to swing bed on 10/20/18. Exam Vital signs and Labs for Last 24 Hours: Temp Pulse Resp BP Pulse Ox 98.4 F 92 H 18 137/92 H 96 10/20/18 08:00 10/20/18 08:00 10/20/18 08:00 10/20/18 08:00 10/20/18 08:00 Laboratory Results - last 24 hr 10/19/18 11:25: POC Glucose 150 H 10/19/18 16:08: POC Glucose 167 H 10/19/18 20:38: POC Glucose 89 10/20/18 06:17: POC Glucose 134 H I & O for Last 24 hours: Intake & Output 10/17/18 10/18/18 10/19/18 10/20/18 11:59 11:59 11:59 11:59 Intake Total 2199 / 2199 1286 / 1286 600 / 600 Output Total 3200 / 3200 800 / 800 675 / 675 Balance 2199 -1188 / -1188 486 / 486 -75 / -75 Weight 151 lb 168 lb 6 oz 168 lb 6.013 oz Narrative: She is alert and pleasant and appears in no distress. Lungs are clear to auscultation. Heart is regular with no murmurs. Swelling in the right lower extremity has improved. No calf tenderness or cords. 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 I certify that post-hospital half-way facility services are required to be given on an inpatient basis because of the need for half-way care on a continuing basis for the condition(s) for which he/she is receiving inpatient hospital services prior to admission to swing bed. I also certify that the resident meets existing SNF level of care definition. - Discharge from Acute Disposition: [facility] Swing Bed Condition: Good Current Home Med List: Home Medications Medication Instructions Recorded Confirmed Type Diclofenac Sodium [Voltaren 100gm 2 g TOPICAL QID 10/14/18 10/14/18 History Topical Gel] Ferrous Sulfate [Ferrous Sulfate 325 mg PO BID 10/17/18 10/17/18 History 325mg Tablet] Latanoprost [Xalatan 0.005% Ophth 1 drop OP HS 10/17/18 10/17/18 History Soln 2.5mL] Levothyroxine Sodium 50 mcg PO DAILY 10/17/18 10/17/18 History [Levothyroxine 50mcg (0.05mg) Tab] Meclizine HCl [Meclizine 25mg Tab] 25 mg PO DAILYP PRN 10/17/18 10/17/18 History Sennosides [Senokot 8.6mg tablet] 8.6 mg PO BIDP PRN tablet 10/20/18 Rx Home Med List for Swing Bed: New Sennosides [Senokot 8.6mg tablet] 8.6 mg PO BIDP PRN tablet PRN Reason: Constipation Continue fluoxetine 20 mg capsule 20 mg PO DAILY 90 Days cap brimonidine-timolol 0.2 %-0.5 % eye drops 1 drop OPHTHALMIC BID 56 Days bimatoprost 0.01 % eye drops 1 drop OPHTHALMIC HS 90 Days metformin 1,000 mg tablet 1,000 mg PO BID 90 Days tab pravastatin 40 mg tablet 40 mg PO HS 90 Days amlodipine 10 mg tablet 10 mg PO DAILY 90 Days tab Diclofenac Sodium [Voltaren 100gm Topical Gel] 2 g TOPICAL QID Meclizine HCl [Meclizine 25mg Tab] 25 mg PO DAILYP PRN PRN Reason: Dizziness Ferrous Sulfate [Ferrous Sulfate 325mg Tablet] 325 mg PO BID Levothyroxine Sodium [Levothyroxine 50mcg (0.05mg) Tab] 50 mcg PO DAILY Latanoprost [Xalatan 0.005% Ophth Soln 2.5mL] 1 drop OP HS No Action Pioglitazone HCl [Actos 30mg tablet] 30 mg PO DAILY Rivaroxaban [Xarelto 10mg tablet] 10 mg PO QPMWM Lisinopril [Zestril 10mg Tab] 10 mg PO DAILY
--- NOTE | 2018-10-20 09:48 | Progress Note ---
Subjective Date: 10/20/18 Time: 08:50 Principal diagnosis: Status post total knee arthroplasty, right Interval history: Patient is status post right total knee arthroplasty, postoperative day 3. Patient is sitting out on a chair. She says she is doing well and her pain is well controlled with pain medication. No history of any nausea or vomiting. Patient says she is eating and drinking well. No history of any distal tingling or numbness. She says she has walked couple of 100 yards with the physical therapist. Overall she is very happy with her progress. She has been discharged to swing bed and now is under care of Dr. Roberson. PN: Obj Ex Vital signs: Temp Pulse Resp BP Pulse Ox 98.4 F 92 H 18 137/92 H 96 10/20/18 08:00 10/20/18 08:00 10/20/18 08:00 10/20/18 08:00 10/20/18 08:00 Narrative: Laboratory Results - last 24 hr 10/19/18 11:25: POC Glucose 150 H 10/19/18 16:08: POC Glucose 167 H 10/19/18 20:38: POC Glucose 89 10/20/18 06:17: POC Glucose 134 H Exam: General appearance: alert, active, awake Cardiovascular: regular rate & rhythm, normal peripheral pulses Respiratory: No respiratory distress noted, speaks in full sentences ABD: soft and non tender Neuro: alert, awake, oriented x 3 On examination of the lower extremities the limb lengths are equal. On examination of the right knee the dressings are clean, dry and intact. Knee range of movements is 5degrees to 60 degrees of flexion. She has weak quadriceps activation and is just about able to lift the leg off the bed. Calf is soft and nontender. Distal pulses are 2+. Capillary refill is brisk. Sensation is intact light touch throughout. She is actively moving the ankle, foot and the toes. 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 Advised her to continue mobilization and physical therapy. Also advised her to avoid placing pillow behind the knee; use knee immobilizer when weightbearing and walking until she regains full quadriceps control and is able to actively straight leg raise. Continue standard PT/OT protocol for a primary knee replacement. Continue DVT prophylaxis, incentive spirometry and as needed pain medication. Continue medical management as per Dr. Roberson.
--- NOTE | 2018-10-21 16:42 | Progress Note ---
Subjective Date: 10/21/18 Time: 15:00 Principal diagnosis: Status post total knee arthroplasty, right Interval history: Patient is status post right total knee arthroplasty, postoperative day . Patient is lying down on the bed. She says she is doing well and her pain is well controlled with as needed pain medication. No history of any distal tingling or numbness. She says she has walked with the help of a cane today and is very pleased with her progress so far. PN: Obj Ex Vital signs: Temp Pulse Resp BP Pulse Ox 98.4 F 92 H 18 137/92 H 96 10/20/18 08:00 10/20/18 08:00 10/20/18 08:00 10/20/18 08:00 10/20/18 08:00 Narrative: Exam: General appearance: alert, active, awake Cardiovascular: regular rate & rhythm, normal peripheral pulses Respiratory: No respiratory distress noted, speaks in full sentences ABD: soft and non tender Neuro: alert, awake, oriented x 3 On examination of the lower extremities the limb lengths are equal. On examination of the right knee the dressings are clean, dry and intact. She has developed a blister over the superior medial aspect of the dressing. Therefore, I have removed the Silverlon dressing and applied sterile border gauze dressing. The incision looks clean and healthy. No signs of infection or other complications are noted. There is minimal swelling and ecchymosis around the knee as to be expected at this stage. Knee range of movements is 5 to 70 degrees of flexion. She has regained good quadriceps activation and is about able to actively lift the leg off the bed. Calf is soft and nontender. Distal pulses are 2+. Capillary refill is brisk. Sensation is intact light touch throughout. She is actively moving the ankle, foot and the toes. 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 Advised her to continue mobilization and physical therapy; also advised her to avoid placing pillow behind the knee. She has regained good quadriceps control and she can stop using the knee immobilizer as comfortable. Continue standard PT/OT protocol for a primary knee replacement. Continue DVT prophylaxis, incentive spirometry and as needed pain medication. Continue medical management as per Dr. Roberson.
--- NOTE | 2018-10-24 17:16 | Discharge Summary ---
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 Discharge Plan - Patient Discharge Instructions ACTIVITY: Continue current activity, Ambulate as tolerated DIET: regular diet Patient Instructions: DI for Knee Replacement, DI for Surgical Site Infection - Follow up Plan Disposition: Home Health Service Home Medications: Home Medications Medication Instructions Recorded Confirmed Type amlodipine 10 mg tablet 10 mg PO DAILY 90 Days tab 08/17/17 10/20/18 History bimatoprost 0.01 % eye drops 1 drop OPHTHALMIC HS 90 Days 08/17/17 10/20/18 History brimonidine-timolol 0.2 %-0.5 % 1 drop OPHTHALMIC BID 56 Days 08/17/17 10/20/18 History eye drops fluoxetine 20 mg capsule 20 mg PO DAILY 90 Days cap 08/17/17 10/20/18 History metformin 1,000 mg tablet 1,000 mg PO BID 90 Days tab 08/17/17 10/20/18 History pravastatin 40 mg tablet 40 mg PO HS 90 Days 10/14/17 10/20/18 History RX: Ferrous Sulfate [Ferrous 325 mg PO BID 10/17/18 10/20/18 History Sulfate 325mg Tablet] RX: Latanoprost [Xalatan 0.005% 1 drop OP HS 10/17/18 10/20/18 History Ophth Soln 2.5mL] RX: Levothyroxine Sodium 50 mcg PO DAILY 10/17/18 10/20/18 History [Levothyroxine 50mcg (0.05mg) Tab] RX: Meclizine HCl [Meclizine 25mg 25 mg PO DAILYP PRN 10/17/18 10/20/18 History Tab] RX: Lisinopril [Zestril 10mg 10 mg PO DAILY 10/20/18 10/20/18 History Tab] RX: Pioglitazone HCl [Actos 30mg 30 mg PO DAILY 10/20/18 10/20/18 History tablet] RX: Sennosides [Senokot 8.6mg 8.6 mg PO BIDP PRN tablet 10/20/18 10/20/18 Rx tablet] Hydrocod/Acet 5/325 mg [[place] 1 - 2 tab PO Q4HP PRN #30 tab 10/24/18 Rx 5/325mg tablet] RX: Rivaroxaban [Xarelto 10mg 10 mg PO QPMWM #7 tablet 10/24/18 Rx tablet] Prescriptions/Medication Reconciliation: New RX: Sennosides [Senokot 8.6mg tablet] 8.6 mg PO BIDP PRN tablet PRN Reason: Constipation Hydrocod/Acet 5/325 mg [[place] 5/325mg tablet] 1 - 2 tab PO Q4HP PRN #30 tab PRN Reason: Moderate To Severe Pain Continue fluoxetine 20 mg capsule 20 mg PO DAILY 90 Days cap brimonidine-timolol 0.2 %-0.5 % eye drops 1 drop OPHTHALMIC BID 56 Days bimatoprost 0.01 % eye drops 1 drop OPHTHALMIC HS 90 Days metformin 1,000 mg tablet 1,000 mg PO BID 90 Days tab pravastatin 40 mg tablet 40 mg PO HS 90 Days amlodipine 10 mg tablet 10 mg PO DAILY 90 Days tab RX: Meclizine HCl [Meclizine 25mg Tab] 25 mg PO DAILYP PRN PRN Reason: Dizziness RX: Ferrous Sulfate [Ferrous Sulfate 325mg Tablet] 325 mg PO BID RX: Levothyroxine Sodium [Levothyroxine 50mcg (0.05mg) Tab] 50 mcg PO DAILY RX: Latanoprost [Xalatan 0.005% Ophth Soln 2.5mL] 1 drop OP HS RX: Pioglitazone HCl [Actos 30mg tablet] 30 mg PO DAILY RX: Rivaroxaban [Xarelto 10mg tablet] 10 mg PO QPMWM #7 tablet RX: Lisinopril [Zestril 10mg Tab] 10 mg PO DAILY Discontinued RX: Diclofenac Sodium [Voltaren 100gm Topical Gel] 2 g TOPICAL QID
== END 2018-10-20 08:59 | disposition swing bed (61) | DRG 470 ==
LOC: 2ND 06:06 → OR 06:06 → OBSVTOIN 12:01
PROVIDERS: ADMIT Orthopaedic Surgery; ATTEND Orthopaedic Surgery
CPT/HCPCS: 36415; 73560; 80048; 81001; 82962; 85025; 86580; 86850; 96374; 97110; 97116; 97162; 97165; 97535; C1713; J2405

== ENCOUNTER 2018-10-20 09:00 | Inpatient (IN) ==
--- NOTE | 2018-10-20 09:54 | Pharmacy Consult Notes ---
[facility] Pharmacy VTE Monitoring - Patient Demographics Admission date: 10/20/18 Report Date: 10/20/18 Time: 09:54 Allergies/Adverse Reactions: Patient Allergies Sulfa (Sulfonamide Antibiotics) [SULFA (SULFONAMIDE ANTIBIOTICS)] Allergy (Mild, Verified 10/14/18 11:49) Hives trimethoprim [From BACTRIM] Allergy (Mild, Verified 10/14/18 11:49) Hives Height: 1.5 m Weight: 74.389 kg - VTE Risk Was VTE Risk Assessment Performed: Yes - Prophylaxis VTE Prophylaxis Ordered?: Yes Types of VTE Prophylaxis: IPCS Thigh High, Pharmacological Location of Applied Device: Left Leg Pharmacologic Type: Other (XARELTO) - VTE Diagnosis Confirmed Treatment or plan recommended: Continue Current Treatment
--- NOTE | 2018-10-20 14:43 | Swing Bed Reports ---
[facility] Swing Bed H&P Swing Bed History and Physical: *Admission Date: 10/17/18 *Chief complaint: knee pain *History of present illness: Ms. Ash is a 78-year-old white female with hypertension, diabetes, hyperlipidemia, hypothyroidism, and osteoarthritis. She underwent right total knee arthroplasty per Dr. Hummel and was admitted for postop care and rehab. Dr. Roberson was consulted to follow the patient medically and to manage her chronic medical issues. Surgery was relatively uneventful. Hospital Course Hospital Course: The patient was stable postop and appeared comfortable with pain management. Her maintenance home medications were reordered. She was switched to a diabetic diet and placed on sliding scale insulin with AC/HS blood sugar checks. Xarelto was ordered for DVT prophylaxis. Her blood sugars were a bit elevated but this was managed with sliding scale insulin. Her blood pressure was also slightly high. Lisinopril was added to her antihypertensive regimen. Dr. Hummel ordered physical therapy. He advised her to avoid placing a pillow behind her knee and to use her knee immobilizer when weightbearing and walking until she regained full quadricep control and was able to actively straight leg raise. Her IV fluids were discontinued and her Stanton catheter was removed. The patient participated with physical therapy and was tolerating this well. Her blood pressure did improve with the addition of lisinopril. She had some constipation, therefore a stool softener was ordered. Her pain was controlled with pain medication. She was able to mobilize well with physical therapy and walked all the way up and down the hallway. Dr. Hummel felt she could be discharged to a swing bed for continued rehab. She was discharged to swing bed on 10/20/18. Exam Vital signs and Labs for Last 24 Hours: Temp Pulse Resp BP Pulse Ox 98.4 F 92 H 18 137/92 H 96 10/20/18 08:00 10/20/18 08:00 10/20/18 08:00 10/20/18 08:00 10/20/18 08:00 Laboratory Results - last 24 hr 10/19/18 11:25: POC Glucose 150 H 10/19/18 16:08: POC Glucose 167 H 10/19/18 20:38: POC Glucose 89 10/20/18 06:17: POC Glucose 134 H I & O for Last 24 hours: Intake & Output 0410/18/18 10/19/18 10/20/18 11:59 11:59 11:59 11:59 Intake Total 2199 / 2199 1286 / 1286 600 / 600 Output Total 3200 / 3200 800 / 800 675 / 675 Balance 2199 -1188 / -1188 486 / 486 -75 / -75 Weight 151 lb 168 lb 6 oz 168 lb 6.013 oz Narrative: She is alert and pleasant and appears in no distress. Lungs are clear to auscultation. Heart is regular with no murmurs. Swelling in the right lower extremity has improved. No calf tenderness or cords. 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 I certify that post-hospital usp facility services are required to be given on an inpatient basis because of the need for usp care on a continuing basis for the condition(s) for which he/she is receiving inpatient hospital services prior to admission to swing bed. I also certify that the resident meets existing SNF level of care definition. - Discharge from Acute Disposition: [facility] Swing Bed Condition: Good Current Home Med List: Home Medications Medication Instructions Recorded Confirmed Type Diclofenac Sodium [Voltaren 100gm 2 g TOPICAL QID 10/14/18 10/14/18 History Topical Gel] Ferrous Sulfate [Ferrous Sulfate 325 mg PO BID 10/17/18 10/17/18 History 325mg Tablet] Latanoprost [Xalatan 0.005% Ophth 1 drop OP HS 10/17/18 10/17/18 History Soln 2.5mL] Levothyroxine Sodium 50 mcg PO DAILY 10/17/18 10/17/18 History [Levothyroxine 50mcg (0.05mg) Tab] Meclizine HCl [Meclizine 25mg Tab] 25 mg PO DAILYP PRN 10/17/18 10/17/18 History Sennosides [Senokot 8.6mg tablet] 8.6 mg PO BIDP PRN tablet 10/20/18 Rx Home Med List for Swing Bed: New Sennosides [Senokot 8.6mg tablet] 8.6 mg PO BIDP PRN tablet PRN Reason: Constipation Continue fluoxetine 20 mg capsule 20 mg PO DAILY 90 Days cap brimonidine-timolol 0.2 %-0.5 % eye drops 1 drop OPHTHALMIC BID 56 Days bimatoprost 0.01 % eye drops 1 drop OPHTHALMIC HS 90 Days metformin 1,000 mg tablet 1,000 mg PO BID 90 Days tab pravastatin 40 mg tablet 40 mg PO HS 90 Days amlodipine 10 mg tablet 10 mg PO DAILY 90 Days tab Diclofenac Sodium [Voltaren 100gm Topical Gel] 2 g TOPICAL QID Meclizine HCl [Meclizine 25mg Tab] 25 mg PO DAILYP PRN PRN Reason: Dizziness Ferrous Sulfate [Ferrous Sulfate 325mg Tablet] 325 mg PO BID Levothyroxine Sodium [Levothyroxine 50mcg (0.05mg) Tab] 50 mcg PO DAILY Latanoprost [Xalatan 0.005% Ophth Soln 2.5mL] 1 drop OP HS No Action Pioglitazone HCl [Actos 30mg tablet] 30 mg PO DAILY Rivaroxaban [Xarelto 10mg tablet] 10 mg PO QPMWM Lisinopril [Zestril 10mg Tab] 10 mg PO DAILY
--- NOTE | 2018-10-21 08:18 | Progress Note ---
<Nikki Faustin - Last Filed: 10/21/18 08:15> Internal Medicine - PN: Subj *Date: 10/21/18 *Time: 08:16 Interval history: Patient states she is feeling well this morning. She has been up and moving about the room with a walker. She states her pain is controlled with pain medication. She slept well last night and ate a good breakfast this morning. Exam Vital signs and Labs for Last 24 Hours: Temp Pulse Resp BP Pulse Ox 99.5 F 83 16 138/60 96 10/20/18 20:00 10/20/18 20:00 10/20/18 20:00 10/20/18 20:00 10/21/18 04:50 Laboratory Results - last 24 hr 10/20/18 11:13: POC Glucose 135 H 10/20/18 16:47: POC Glucose 146 H 10/20/18 20:33: POC Glucose 168 H 10/21/18 06:32: POC Glucose 116 H I & O for Last 24 hours: Intake & Output 10/18/18 10/19/18 10/20/18 10/21/18 11:59 11:59 11:59 11:59 Intake Total 720 / 720 Output Total 1400 / 1400 Balance -680 / -680 Weight 164 lb - Constitutional no acute distress - *Routine Respiratory Exam Present: CTA bilaterally - *Routine Cardiovascular Exam Present: RRR - *Routine Abdominal Exam Present: soft, normoactive bowel sounds. Absent: tenderness - *Routine Extremities Exam Present: edema (trace in the RLE). Absent: cyanosis, clubbing Assessment and Plan (1) Status post total right knee replacement Current visit: No Status: Acute Category: Surgical Code(s): Z96.651 - Presence of right artificial knee joint (2) Hyperlipidemia Current visit: No Status: Chronic Category: Medical Code(s): E78.5 - Hyperlipidemia, unspecified (3) Hypertension Current visit: No Status: Chronic Category: Medical Code(s): I10 - Essential (primary) hypertension (4) Hypothyroidism Current visit: No Status: Chronic Category: Medical Code(s): E03.9 - Hypothyroidism, unspecified (5) Osteoarthritis Current visit: No Status: Chronic Category: Medical Code(s): M19.90 - Unspecified osteoarthritis, unspecified site (6) Type 2 diabetes mellitus Current visit: No Status: Chronic Category: Medical Code(s): E11.9 - Type 2 diabetes mellitus without complications - Assessment and plan all Dx Assessment and Plan for all problems:: Patient doing well. Will continue rehab. She is requesting a walker and cane upon discharge. <Isacc Roberson - Last Filed: 10/21/18 08:40> Exam Vital signs and Labs for Last 24 Hours: Temp Pulse Resp BP Pulse Ox 99.5 F 83 16 138/60 96 10/20/18 20:00 10/20/18 20:00 10/20/18 20:00 10/20/18 20:00 10/21/18 04:50 Laboratory Results - last 24 hr 10/20/18 11:13: POC Glucose 135 H 10/20/18 16:47: POC Glucose 146 H 10/20/18 20:33: POC Glucose 168 H 10/21/18 06:32: POC Glucose 116 H I & O for Last 24 hours: Intake & Output 10/18/18 10/19/18 10/20/18 10/21/18 11:59 11:59 11:59 11:59 Intake Total 720 / 720 Output Total 1400 / 1400 Balance -680 / -680 Weight 164 lb Assessment and Plan (1) Status post total right knee replacement Current visit: No Status: Acute Category: Surgical Code(s): Z96.651 - Presence of right artificial knee joint (2) Hyperlipidemia Current visit: No Status: Chronic Category: Medical Code(s): E78.5 - Hyperlipidemia, unspecified (3) Hypertension Current visit: No Status: Chronic Category: Medical Code(s): I10 - Essential (primary) hypertension (4) Hypothyroidism Current visit: No Status: Chronic Category: Medical Code(s): E03.9 - Hypothyroidism, unspecified (5) Osteoarthritis Current visit: No Status: Chronic Category: Medical Code(s): M19.90 - Unspecified osteoarthritis, unspecified site (6) Type 2 diabetes mellitus Current visit: No Status: Chronic Category: Medical Code(s): E11.9 - Type 2 diabetes mellitus without complications - Assessment and plan all Dx Assessment and Plan for all problems:: Patient seen and examined. Concur with assessment and plan.
--- NOTE | 2018-10-22 08:41 | Progress Note ---
Internal Medicine - PN: Subj Interval history: She rested well last night. She continues to progress well with therapy. Her bowels moved yesterday. No new complaints. Exam Vital signs and Labs for Last 24 Hours: Temp Pulse Resp BP Pulse Ox 98.0 F 79 18 157/75 H 96 10/22/18 08:00 10/22/18 08:00 10/22/18 08:00 10/22/18 08:00 10/22/18 08:00 Laboratory Results - last 24 hr 10/21/18 11:39: POC Glucose 158 H 10/21/18 16:35: POC Glucose 113 H 10/21/18 20:54: POC Glucose 143 H 10/22/18 06:35: POC Glucose 145 H I & O for Last 24 hours: Intake & Output 10/19/18 10/20/18 10/21/18 10/22/18 11:59 11:59 11:59 11:59 Intake Total 1080 / 1080 960 / 960 Output Total 1400 / 1400 1450 / 1450 Balance -320 / -320 -490 / -490 Weight 164 lb 163 lb 15.995 oz Narrative: She is alert and oriented. Color is good. Lungs are clear to auscultation. Heart is regular. Abdomen soft and nondistended with no tenderness. Extremities show trace edema of the right lower leg. Assessment and Plan (1) Status post total right knee replacement Current visit: No Status: Acute Category: Surgical Code(s): Z96.651 - Presence of right artificial knee joint (2) Hyperlipidemia Current visit: No Status: Chronic Category: Medical Code(s): E78.5 - Hyperlipidemia, unspecified (3) Hypertension Current visit: No Status: Chronic Category: Medical Code(s): I10 - Essential (primary) hypertension (4) Hypothyroidism Current visit: No Status: Chronic Category: Medical Code(s): E03.9 - Hypothyroidism, unspecified (5) Osteoarthritis Current visit: No Status: Chronic Category: Medical Code(s): M19.90 - Unspecified osteoarthritis, unspecified site (6) Type 2 diabetes mellitus Current visit: No Status: Chronic Category: Medical Code(s): E11.9 - Type 2 diabetes mellitus without complications - Assessment and plan all Dx Assessment and Plan for all problems:: Continue physical therapy.
--- NOTE | 2018-10-24 08:00 | Progress Note ---
<Janessa Maynard - Last Filed: 10/24/18 07:57> Internal Medicine - PN: Subj *Date: 10/24/18 *Time: 07:57 Interval history: Patient is expecting to go home today. She states she has been doing well with physical therapy. She was up in the room with her walker yesterday and did her exercises. She is eating without problems. She denies chest pain and shortness of breath. Bowels are moving and she is voiding without difficulty. Exam Vital signs and Labs for Last 24 Hours: Temp Pulse Resp BP Pulse Ox 98.2 F 89 18 115/59 L 98 10/24/18 07:37 10/24/18 07:37 10/24/18 07:37 10/24/18 07:37 10/24/18 07:37 Laboratory Results - last 24 hr 10/23/18 11:35: POC Glucose 153 H 10/23/18 17:22: POC Glucose 176 H 10/24/18 06:36: POC Glucose 162 H I & O for Last 24 hours: Intake & Output 10/21/18 10/22/18 10/23/18 10/24/18 11:59 11:59 11:59 11:59 Intake Total 1080 / 1080 960 / 960 1200 / 1200 720 / 720 Output Total 1400 / 1400 1450 / 1450 800 / 800 1650 / 1650 Balance -320 / -320 -490 / -490 400 / 400 -930 / -930 Weight 163 lb 15.995 oz - Constitutional no acute distress Comments: Awake alert and oriented. Appears comfortable. - *Routine Respiratory Exam Present: CTA bilaterally (Anteriorly and posteriorly) - *Routine Cardiovascular Exam Present: RRR - *Routine Abdominal Exam Present: soft, normoactive bowel sounds. Absent: tenderness - *Routine Extremities Exam Absent: edema, calf tenderness - *Routine Neurological Exam Present: alert, oriented X3 Assessment and Plan (1) Status post total right knee replacement Current visit: No Status: Acute Category: Surgical Code(s): Z96.651 - Presence of right artificial knee joint (2) Hyperlipidemia Current visit: No Status: Chronic Category: Medical Code(s): E78.5 - Hyperlipidemia, unspecified (3) Hypertension Current visit: No Status: Chronic Category: Medical Code(s): I10 - Essential (primary) hypertension (4) Hypothyroidism Current visit: No Status: Chronic Category: Medical Code(s): E03.9 - Hypothyroidism, unspecified (5) Osteoarthritis Current visit: No Status: Chronic Category: Medical Code(s): M19.90 - Unspecified osteoarthritis, unspecified site (6) Type 2 diabetes mellitus Current visit: No Status: Chronic Category: Medical Code(s): E11.9 - Type 2 diabetes mellitus without complications - Assessment and plan all Dx Assessment and Plan for all problems:: Home today. Has her walker and cane. See discharge orders <Isacc Roberson - Last Filed: 10/24/18 08:19> Exam Vital signs and Labs for Last 24 Hours: Temp Pulse Resp BP Pulse Ox 98.2 F 89 18 115/59 L 98 10/24/18 07:37 10/24/18 07:37 10/24/18 07:37 10/24/18 07:37 10/24/18 07:37 Laboratory Results - last 24 hr 10/23/18 11:35: POC Glucose 153 H 10/23/18 17:22: POC Glucose 176 H 10/24/18 06:36: POC Glucose 162 H I & O for Last 24 hours: Intake & Output 10/21/18 10/22/18 10/23/18 10/24/18 11:59 11:59 11:59 11:59 Intake Total 1080 / 1080 960 / 960 1200 / 1200 720 / 720 Output Total 1400 / 1400 1450 / 1450 800 / 800 1650 / 1650 Balance -320 / -320 -490 / -490 400 / 400 -930 / -930 Weight 163 lb 15.995 oz Assessment and Plan (1) Status post total right knee replacement Current visit: No Status: Acute Category: Surgical Code(s): Z96.651 - Presence of right artificial knee joint (2) Hyperlipidemia Current visit: No Status: Chronic Category: Medical Code(s): E78.5 - Hyperlipidemia, unspecified (3) Hypertension Current visit: No Status: Chronic Category: Medical Code(s): I10 - Essential (primary) hypertension (4) Hypothyroidism Current visit: No Status: Chronic Category: Medical Code(s): E03.9 - Hypothyroidism, unspecified (5) Osteoarthritis Current visit: No Status: Chronic Category: Medical Code(s): M19.90 - Unspecified osteoarthritis, unspecified site (6) Type 2 diabetes mellitus Current visit: No Status: Chronic Category: Medical Code(s): E11.9 - Type 2 diabetes mellitus without complications - Assessment and plan all Dx Assessment and Plan for all problems:: Patient seen and examined. Seems to be ready for discharge if OK with Dr. Hummel.
--- NOTE | 2018-10-25 13:50 | Discharge Summary ---
General - General Admission date:: 10/20/18 Discharge date: 10/24/18 HPI HPI: Ms. Ash is a 78-year-old white female with hypertension, diabetes, hyperlipidemia, hypothyroidism, and osteoarthritis. She underwent right total knee arthroplasty per Dr. Hummel and was admitted for postop care and rehab. Dr. Roberson was consulted to follow the patient medically and to manage her chronic medical issues. Surgery was relatively uneventful. Hospital Course Hospital Course: The patient was stable postop and appeared comfortable with pain management. Her maintenance home medications were reordered. She was switched to a diabetic diet and placed on sliding scale insulin with AC/HS blood sugar checks. Xarelto was ordered for DVT prophylaxis. Her blood sugars were a bit elevated but this was managed with sliding scale insulin. Her blood pressure was also slightly high. Lisinopril was added to her antihypertensive regimen. Dr. Hummel ordered physical therapy. He advised her to avoid placing a pillow behind her knee and to use her knee immobilizer when weightbearing and walking until she regained full quadricep control and was able to actively straight leg raise. Her IV fluids were discontinued and her Stanton catheter was removed. The patient participated with physical therapy and was tolerating this well. Her blood pressure did improve with the addition of lisinopril. She had some cons tipation, therefore a stool softener was ordered. Her pain was controlled with pain medication. She was able to mobilize well with physical therapy and walked all the way up and down the hallway. Dr. Hummel felt she could be discharged to a swing bed for continued rehab. She was discharged to swing bed on 10/20/18. The patient did well during her swing bed admission. She was able to get up and move about the room with a walker. Her pain was controlled with pain medication. She was eating and sleeping well. She continued with rehab. Her bowels did begin moving. She was stable to be discharged home with both a walker and a cane. She will have home health for continued rehab and will follow up with both Dr. Roberson and Dr. Hummel. Objective Vital signs: Temp Pulse Resp BP Pulse Ox 98.2 F 89 18 115/59 L 98 10/24/18 07:37 10/24/18 07:37 10/24/18 07:37 10/24/18 07:37 10/24/18 07:37 Narrative: She is alert and pleasant and appears in no distress. Lungs are clear to auscultation. Heart is regular with no murmurs. Swelling in the right lower extremity has improved. No calf tenderness or cords. Results Labs on day of discharge: Labs from last 24 hours 10/24/18 16:50 POC Glucose 205 H DS: Diagnosis - Discharge Diagnosis (1) Status post total right knee replacement Status: Acute (2) Hyperlipidemia Status: Chronic (3) Hypertension Status: Chronic (4) Hypothyroidism Status: Chronic (5) Osteoarthritis Status: Chronic (6) Type 2 diabetes mellitus Status: Chronic Discharge Plan - Patient Discharge Instructions ACTIVITY: Ambulate as tolerated, Limited activity DIET: diabetic diet - Follow up Plan Follow up with: Isacc Roberson MD [Primary Care Provider] - 1 month Aly Hummel MD [Staff Physician] - (per his order) Disposition: Home Health Service Home Medications: Home Medications Medication Instructions Recorded Confirmed Type amlodipine 10 mg tablet 10 mg PO DAILY 90 Days tab 08/17/17 10/20/18 History bimatoprost 0.01 % eye drops 1 drop OPHTHALMIC HS 90 Days 08/17/17 10/20/18 History brimonidine-timolol 0.2 %-0.5 % 1 drop OPHTHALMIC BID 56 Days 08/17/17 10/20/18 History eye drops fluoxetine 20 mg capsule 20 mg PO DAILY 90 Days cap 08/17/17 10/20/18 History metformin 1,000 mg tablet 1,000 mg PO BID 90 Days tab 08/17/17 10/20/18 History pravastatin 40 mg tablet 40 mg PO HS 90 Days 10/14/17 10/20/18 History Ferrous Sulfate [Ferrous Sulfate 325 mg PO BID 10/17/18 10/20/18 History 325mg Tablet] Latanoprost [Xalatan 0.005% Ophth 1 drop OP HS 10/17/18 10/20/18 History Soln 2.5mL] Levothyroxine Sodium 50 mcg PO DAILY 10/17/18 10/20/18 History [Levothyroxine 50mcg (0.05mg) Tab] Lisinopril [Zestril 10mg Tab] 10 mg PO DAILY 10/20/18 10/20/18 History Pioglitazone HCl [Actos 30mg 30 mg PO DAILY 10/20/18 10/20/18 History tablet] Levothyroxine Sodium [Synthroid 50 mcg PO DAILYDM tablet 10/24/18 Rx 50mcg (0.05mg) tab] Lisinopril [Zestril 10mg Tab] 10 mg PO DAILY #30 tablet 10/24/18 Rx Non Formulary [Pt's Own Medication] 1 each PO HS each 10/24/18 Rx Pioglitazone HCl [Actos 30mg 30 mg PO DAILY tablet 10/24/18 Rx tablet] Rivaroxaban [Xarelto 10mg tablet] 10 mg PO QPMWM #5 tablet 10/24/18 Rx Rivaroxaban [Xarelto 10mg tablet] 10 mg PO QPMWM #7 tablet 10/24/18 Rx Prescriptions/Medication Reconciliation: New Levothyroxine Sodium [Synthroid 50mcg (0.05mg) tab] 50 mcg PO DAILYDM tablet Non Formulary [Pt's Own Medication] 1 each PO HS each Pioglitazone HCl [Actos 30mg tablet] 30 mg PO DAILY tablet Lisinopril [Zestril 10mg Tab] 10 mg PO DAILY #30 tablet Rivaroxaban [Xarelto 10mg tablet] 10 mg PO QPMWM #5 tablet Continue fluoxetine 20 mg capsule 20 mg PO DAILY 90 Days cap brimonidine-timolol 0.2 %-0.5 % eye drops 1 drop OPHTHALMIC BID 56 Days bimatoprost 0.01 % eye drops 1 drop OPHTHALMIC HS 90 Days metformin 1,000 mg tablet 1,000 mg PO BID 90 Days tab pravastatin 40 mg tablet 40 mg PO HS 90 Days amlodipine 10 mg tablet 10 mg PO DAILY 90 Days tab Ferrous Sulfate [Ferrous Sulfate 325mg Tablet] 325 mg PO BID Levothyroxine Sodium [Levothyroxine 50mcg (0.05mg) Tab] 50 mcg PO DAILY Latanoprost [Xalatan 0.005% Ophth Soln 2.5mL] 1 drop OP HS Pioglitazone HCl [Actos 30mg tablet] 30 mg PO DAILY Rivaroxaban [Xarelto 10mg tablet] 10 mg PO QPMWM #7 tablet Lisinopril [Zestril 10mg Tab] 10 mg PO DAILY Discontinued Meclizine HCl [Meclizine 25mg Tab] 25 mg PO DAILYP PRN PRN Reason: Dizziness Sennosides [Senokot 8.6mg tablet] 8.6 mg PO BIDP PRN tablet PRN Reason: Constipation Hydrocod/Acet 5/325 mg [[place] 5/325mg tablet] 1 - 2 tab PO Q4HP PRN #30 tab PRN Reason: Moderate To Severe Pain
== END 2018-10-24 18:21 | disposition home health service (06) | DRG 554 ==
LOC: 2ND 09:00
PROVIDERS: ADMIT Family Medicine; ATTEND Family Medicine

== ENCOUNTER → 2018-12-28 13:53 | Outpatient (POV) | payer MEDICARE, OTHER, SELFPAY | DX: Z00.00 Encounter for general adult medical examination without abnormal findings (principal) ==

== ENCOUNTER → 2019-01-10 12:43 | Outpatient (CLI) | payer MEDICARE, OTHER, SELFPAY ==
--- NOTE | 2019-01-10 12:49 | XR_ITS ---
XR knee RT 2V HISTORY: ITS.REASON: follow up RIGHT total knee arthroplasty ORDERING PHYSICIAN: Aly Hummel MD PATIENT AGE: 78 years COMPARISON: 10/17/2018. FINDINGS: No fracture or dislocation. No lytic or blastic change. Normal mineralization. No significant arthritic changes evident. There is a total right knee prosthesis. There is no acute fracture. Alignment and bone density appears to be normal. Soft tissues are unremarkable. IMPRESSION: Postoperative knee without acute process.
== END ==
PROVIDERS: PCP Family Medicine; Visit Provider Orthopaedic Surgery
DX: Z96.651 Presence of right artificial knee joint (principal)
CPT/HCPCS: 73560

== ENCOUNTER → 2019-01-25 13:13 | Outpatient (POV) | payer MEDICARE, OTHER, SELFPAY | DX: Z00.00 Encounter for general adult medical examination without abnormal findings (principal) ==

== ENCOUNTER → 2019-04-12 12:20 | Outpatient (CLI) | payer MEDICARE, OTHER, SELFPAY ==
--- NOTE | 2019-04-12 12:27 | XR_ITS ---
PROCEDURE: XR KNEE RT 2V CLINICAL INDICATION: sp RT TKA Follow-up knee replacement COMPARISON: [id number] KNEE-3 VIEWS-RT from 02/25/2015 [id number] KNEE-4 OR 5 VIEWS-RT from 01/07/2017 [id number] XR knee RT 4V from 05/26/2018 [id number] XR knee RT 2V from 10/17/2018 FINDINGS: Status post total knee replacement with good alignment. The tibial plateau is slightly angled inferiorly however, this may be related to positioning. Weight-bearing views may confirm. No acute fracture or dislocation. IMPRESSION: Good alignment status post total knee replacement Dictated by: Daniel Peterson MD 04/12/2019 12:52 Electronically signed by Daniel Peterson MD in [place] 04/12/2019 12:52
== END ==
PROVIDERS: PCP Family Medicine; Visit Provider Orthopaedic Surgery
DX: Z96.651 Presence of right artificial knee joint (principal); M25.561 Pain in right knee
CPT/HCPCS: 73560

== ENCOUNTER → 2019-05-25 08:58 | Outpatient (CLI) | payer MEDICARE, OTHER, SELFPAY ==
--- NOTE | 2019-05-25 09:10 | MM_ITS ---
PROCEDURE: MM DIG SCREENING MAMM BI W/CAD Patient Age:78Y CLINICAL INDICATION: SCREENING: No hormones, no new complaints.. Previous left breast cyst aspiration. Benign but stated potential pre cancerous on history sheet. Patient with previous cervical and thyroid cancer Family history: Maternal aunt with breast cancer. COMPARISON: DIGITAL MAMMOGRAPHY SCREENING from 12/05/2010 Screening-Bilateral Mammography from 09/27/2013 [facility] DIG MAMM-SCREEN ALYCE W/CAD from 11/11/2016 [facility] MM Dig screening mamm BI w/CAD from 03/30/2018 [id number] XR DEXA axial skeleton from 04/11/2018 TECHNIQUE: Standard CC and MLO images were obtained. R2 CAD reviewed. FINDINGS: Lower density breast with [id number] residual breast tissue elements but however no new areas of significant concern. No dominant or suspicious mass. Minimal vascular calcifications at superior left breast appear stable.. CAD highlights no significant new areas of concern but bilateral follow-up 1 year recommended IMPRESSION: Stable mammogram, with no new areas of significant concern. . Bilateral follow-up 1 year recommended BI-RAD Category: 2 Benign Finding(s) FOLLOW-UP: 1YR 1 Year Follow-up (A letter has been sent to the patient regarding results of the study.) Dictated by: Ty Pond MD 05/25/2019 13:57 Electronically signed by Ty Pond MD in [place] 05/25/2019 13:57
== END ==
PROVIDERS: PCP Family Medicine; Visit Provider Family Medicine
DX: Z12.31 Encounter for screening mammogram for malignant neoplasm of breast (principal)
CPT/HCPCS: 77067

== ENCOUNTER → 2019-05-31 13:03 | Outpatient (POV) | payer MEDICARE, OTHER, SELFPAY | DX: Z00.00 Encounter for general adult medical examination without abnormal findings (principal) ==

== ENCOUNTER → 2019-08-30 09:01 | Outpatient (CLI) | payer MEDICARE, OTHER, SELFPAY ==
--- NOTE | 2019-08-30 09:05 | XR_ITS ---
PROCEDURE: XR ELBOW LT MIN 3V CLINICAL INDICATION: follow up radial head fracture Follow-up fracture, pain COMPARISON: ELBOWCMLT XR elbow LT min 3V from 11/25/2017 ELBOWCMLT XR elbow LT min 3V from 12/10/2017 ELBOWCMLT XR elbow LT min 3V from 12/31/2017 XR ELBOW LT MIN 3V from 08/06/2019 FINDINGS: Nondisplaced longitudinal fracture is present involving the radial head with minimal depression of the lateral fragment. This does not appear significantly changed. No other significant anomalies are evident. The joint spaces are well-preserved. No significant degenerative/arthritic changes. No erosive changes evident. Other findings:None. IMPRESSION: No change nondisplaced radial head fracture Dictated by: Daniel Peterson MD 08/30/2019 15:52 Electronically signed by Daniel Peterson MD in [place] 08/30/2019 15:52
== END ==
PROVIDERS: PCP Family Medicine; Visit Provider Orthopaedic Surgery
DX: S52.125D Nondisplaced fracture of head of left radius, subsequent encounter for closed fracture with routine healing (principal)
CPT/HCPCS: 73080

== ENCOUNTER → 2019-09-04 12:18 | Outpatient (CLI) | payer MEDICARE, OTHER, SELFPAY ==
--- NOTE | 2019-09-04 12:19 | XR_ITS ---
PROCEDURE: XR DEXA AXIAL SKELETON CLINICAL HISTORY: evaluate for osteoporosis Postmenopausal female COMPARISON: No exams were available for comparison FINDINGS: Utilizing the right hip total bone mineral density is 0.61 grams/squared centimeter. T-score -2.[address] the patient in the osteopenic category. Ten year fracture risk for major osteoporotic fracture would be 20 percent in that for hip fracture 5 percent. Using L1 through L4 vertebrae total bone mineral density is 1.02 grams/squared centimeter. T-score of -0.[address] the patient in the normal mineralization category. Some hypertrophic degenerative changes are seen on the scanogram image likely contributing to false elevation of bone mineral density measurement. IMPRESSION: Osteopenia of the hip with increased fracture risk. Normal mineralization of the spine. Dictated by: Jian Barrera 09/04/2019 17:08 Electronically signed by Jian Barrera in [place] 09/04/2019 17:08
== END ==
PROVIDERS: PCP Family Medicine; Visit Provider Orthopaedic Surgery
DX: M81.0 Age-related osteoporosis without current pathological fracture (principal)
CPT/HCPCS: 77080

== ENCOUNTER → 2019-10-04 12:33 | Outpatient (POV) | payer MEDICARE, OTHER, SELFPAY | PROVIDERS: PCP Family Medicine | DX: Z00.00 Encounter for general adult medical examination without abnormal findings (principal) ==

== ENCOUNTER → 2020-05-01 13:32 | Outpatient (POV) | payer MEDICARE, OTHER, SELFPAY | DX: Z00.00 Encounter for general adult medical examination without abnormal findings (principal) ==

== ENCOUNTER → 2020-05-27 09:38 | Outpatient (CLI) | payer MEDICARE, OTHER, SELFPAY ==
--- NOTE | 2020-05-27 09:53 | MM_ITS ---
PROCEDURE: MM DIG SCREENING MAMM BI W/CAD Digital Breast Tomosynthesis Included CLINICAL INDICATION: SCREENING There is a history of breast cancer in the patient's paternal aunt diagnosed at age 50. There has been previous cyst aspiration left breast with benign findings COMPARISON: [facility] MM Dig screening mamm BI w/CAD from 03/30/2018 CR,MG DEXAAX XR DEXA axial skeleton from 04/11/2018 MG MM DIG SCREENING MAMM BI W/CAD from 05/25/2019 TECHNIQUE: Standard CC and MLO images and 3D Tomosynthesis was obtained. R2 CAD reviewed. FINDINGS: Moderate diffuse scattered fibroglandular densities are seen throughout both breast and the findings are fairly symmetrical bilaterally. There are mole markers on both breasts. There is no suspicious lesion in either breast and no suspicious microcalcifications. There are couple of benign-appearing calcifications left breast. IMPRESSION: Moderate diffuse breast density with no suspicious lesions seen BI-RAD Category: 2 Benign Finding(s) FOLLOW-UP: 1YR 1 Year Follow-up (A letter has been sent to the patient regarding results of the study.) Dictated by: Dr. Westley Coulter MD 05/29/2020 07:38 Dr. Westley Coulter MD in [place] 05/29/2020 07:38
== END ==
PROVIDERS: PCP Family Medicine; Visit Provider Family Medicine
DX: Z12.31 Encounter for screening mammogram for malignant neoplasm of breast (principal)
CPT/HCPCS: 77063; 77067

== ENCOUNTER 2020-09-16 12:36 | Emergency (ER) | payer MEDICARE, OTHER, SELFPAY ==
[2020-09-16 12:38] VITALS: BP 156/72; PULSE 81; RESP 17; TEMP 36.6; O2SAT 97; BMI 30.2
[2020-09-16 12:40] VITALS: BP 136/72; PULSE 80; RESP 21; TEMP 36.9; O2SAT 98; BMI 30.8
--- NOTE | 2020-09-16 13:00 | HMH.EDGENADL ---
ED Disposition Clinical Impression: Ocular migraine Disposition: Home, Self-Care Condition on Discharge: Good Referrals: Isacc Roberson MD [Primary Care Provider] - 3 days - Critical Care Critical Care Time: No Attestation: On 09/16/20, the high probability of a clinically significant, sudden or life threatening deterioration of the following system(s) required my full and direct attention, intervention and personal management. The time I documented below is in addition to time spent performing reported procedures but includes the following listed in this critical care notation. Medical Decision Making - Medical Records Medical records reviewed: Yes: I reviewed the patient's medical records. - Alessandro Inquiry Pt receiving controlled substance: No Vital Signs: 09/16/20 12:38 09/16/20 12:40 Temperature 97.9 F 98.5 F Temperature Source Oral Oral Pulse Rate [Left Radial] 81 80 Respiratory Rate 17 21 Blood Pressure [Left Arm] 156/72 H 136/72 Blood Pressure Mean [Left Arm] 100 93 Blood Pressure Source [Left Arm] Automatic Cuff Automatic Cuff Blood Pressure Position [Left Arm] Sitting Sitting 02 Sat by Pulse Oximetry 97 98 Oxygen Delivery Method Room Air Room Air - Lab Data Lab Results 09/16/20 13:00: Sodium 140, Potassium 4.2, Chloride 107, Carbon Dioxide 25, Anion Gap 12.2, BUN 13, Creatinine 0.90, Estimated Creat Clear 51, Estimated GFR 61, Est GFR ( Amer) 73, Glucose 104 H, Calcium 9.6, Total Bilirubin 0.5, AST 24, ALT 13, Alkaline Phosphatase 88, Total Protein 8.1, Albumin 4.7, Globulin 3.4 H, Albumin/Globulin Ratio 1.4 09/16/20 13:00: WBC 5.7, RBC 4.38, Hgb 12.7, Hct 39.1, MCV 89.2, MCH 29.1, MCHC 32.6, RDW 13.7, Plt Count 316, MPV 7.5, Neut % (Auto) 63.7, Lymph % (Auto) 25.0, [place] % (Auto) 6.9, Eos % (Auto) 3.4, Baso % (Auto) 0.9, Neut # (Auto) 3.6, Lymph # (Auto) 1.4, [place] # (Auto) 0.4, Eos # (Auto) 0.2, Baso # (Auto) 0.1 Result diagrams: 09/16/20 13:00 09/16/20 13:00 - CT Data CT Scan: Head Time Received: 13:[address] Reviewed: Yes: I have reviewed the patient's CT results, I have viewed the radiologist's interpretation Preliminary Findings: Normal/NAD Medical Decision Narrative: Patient evaluated for sudden onset visual deficit. Concern for TIA versus stroke versus optic migraine. Patient is in no acute distress initial evaluation. Her NIH stroke scale is a 0 as she states her vision is already improving. Patient sent to the CT scanner for scan without contrast. CBC and CMP have been collected. Blood work is unremarkable. CT of the head shows no acute intracranial findings. Patient reports vision is completely normal at this time. She complains of mild frontal headache soreness which she states is normal following her migraine it typically last for few hours. She denies any nausea or other symptoms migraine at this time. Given her history of ocular migraine, complete resolution of symptoms at this time, I believe is reasonable to discharge the patient home she can continue taking her routine home medications. Follow-up PCP in 2 to 3 days. General Adult HPI - General Stated complaint: headaches,vision loss Time Seen by Provider: 09/16/20 13:00 Mode of Arrival: Ambulatory Source of Information: Patient - History of Present Illness HPI narrative: 79yo F with past medical history significant for ocular migraines presents emergency department with concern for acute vision loss. Patient reports symptoms began approximately 2 hours ago. She states she lost her vision and then developed a headache, worse her migraine usually has headache followed by visual loss. She denies any nausea, vomiting, disequilibrium, confusion. She reports normal activity today. She states she waited to come in because nobody was able to drive her and she did not want to drive with visual deficits. She reports her current headache is typical of her migraines. - Related Data Home Medications M
--- NOTE | 2020-09-16 13:01 | CT_ITS ---
PROCEDURE: CT HEAD/BRAIN WO CON CLINICAL INDICATION: code stroke Headache, visual loss, CVA, stroke protocol COMPARISON: No exams were available for comparison TECHNIQUE: Axial images obtained. All CT scans at the facility use one or more dose reduction, viz: automated exposure control, ma/kV adjustment per patient size (including targeted exams where dose is matched to indication, i.e. head), or iterative reconstruction technique. FINDINGS: No midline shift, mass effect, intracranial hemorrhage, hydrocephalus, or extra-axial fluid collection is evident. There is generalized atrophy with hypoattenuation of the periventricular white matter consistent with microangiopathic changes. The calvarium has an unremarkable appearance. No mastoid effusion. Mild mucosal thickening of the ethmoid sinuses and small retention cyst right maxillary sinus medially and anteriorly IMPRESSION: No acute intracranial finding Dictated by: Daniel Peterson MD 09/16/2020 13:58 Daniel Peterson MD in [facility] 09/16/2020 13:58
[2020-09-16 13:29] LABS: Chloride 107 mmol/L (98-107); Potassium 4.2 mmoL/L (3.5-5.1); Sodium 140 mmol/L (136-145)
[2020-09-16 13:31] LABS: Basophils # 0.1 K/mm3 (0-0.2); Basophils % 0.9 % (0.1-2.0); Blood Urea Nitrogen 13 mg/dl (7-17); Creatinine Clearance Estimated 51 mL/min (50-200); Eosinophils # 0.2 K/mm3 (0.0-0.4); Eosinophils % 3.4 % (0.1-12.0); Estimated Glomerular Filt Rate 61 ml/min (>60); GFR (African American) 73 ML/MIN (>60); Hematocrit 39.1 % (37.0-47.0); Hemoglobin 12.7 g/dL (12.2-16.2); Lymphocytes # 1.4 K/mm3 (0.7-4.5); Mean Corpuscular HGB Conc 32.6 g/dL (31.8-35.4); Mean Corpuscular Hemoglobin 29.1 pg (27.0-31.2); Mean Corpuscular Volume 89.2 fl (81-99); Mean Platelet Volume 7.5 fl (7.4-10.4); Monocytes # 0.4 K/mm3 (0.1-1.0); Monocytes % 6.9 % (1.7-9.3); Neutrophils # 3.6 K/mm3 (1.8-7.8); Neutrophils % 63.7 % (37.0-80.0); Platelet Count 316 K/mm3 (142-424); Red Blood Count 4.38 M/mm3 (4.20-5.40); Red Cell Distribution Width 13.7 % (11.5-17.5); White Blood Count 5.7 K/mm3 (4.8-10.8)
[2020-09-16 13:32] LABS: Alanine Aminotransferase 13 U/L (12-78); Albumin Level 4.7 g/dl (3.5-5.0); Albumin/Globulin Ratio 1.4 (1.1-1.8); Alkaline Phosphatase 88 U/L (38-126); Anion Gap 12.2 mEq/L (5-15); Aspartate Amino Transferase 24 U/L (14-36); Bilirubin,Total 0.5 mg/dl (0.2-1.3); Calcium 9.6 mg/dl (8.4-10.2); Carbon Dioxide 25 mmol/L (22.0-30.0); Globulin 3.4 g/dL (1.3-3.2); Glucose 104 mg/dl (74-100); Total Protein,Serum 8.1 g/dl (6.3-8.2)
[2020-09-16 14:00] VITALS: PULSE 73; RESP 18; O2SAT 98
[2020-09-16 14:30] VITALS: BP 144/83; PULSE 74; RESP 18; O2SAT 98
[2020-09-16 14:55] VITALS: BP 140/79; PULSE 72; RESP 17; TEMP 36.6; O2SAT 97
== END 2020-09-16 14:55 | disposition home or self-care (01) ==
PROVIDERS: Emergency Provider Family Medicine; PCP Family Medicine
DX: G43.109 Migraine with aura, not intractable, without status migrainosus (principal); E11.9 Type 2 diabetes mellitus without complications; K21.9 Gastro-esophageal reflux disease without esophagitis; E03.9 Hypothyroidism, unspecified; E78.5 Hyperlipidemia, unspecified; I10 Essential (primary) hypertension; Z79.899 Other long term (current) drug therapy; Z88.2 Allergy status to sulfonamides; M81.0 Age-related osteoporosis without current pathological fracture; Z96.651 Presence of right artificial knee joint; Z96.652 Presence of left artificial knee joint
CPT/HCPCS: 70450; 80053; 85025; 99283

== ENCOUNTER → 2020-10-02 14:04 | Outpatient (POV) | payer MEDICARE, OTHER, SELFPAY | DX: Z00.00 Encounter for general adult medical examination without abnormal findings (principal) ==

== ENCOUNTER 2021-01-31 11:10 | Emergency (ER) | payer MEDICARE, OTHER, SELFPAY ==
[2021-01-31 11:10] VITALS: BP 147/71; PULSE 70; RESP 20; TEMP 36.6; O2SAT 98; BMI 32.8
--- NOTE | 2021-01-31 11:28 | XR_ITS ---
PROCEDURE: XR LUMBAR SPINE 2-3V CLINICAL INDICATION: FALL Posttraumatic pain COMPARISON: No exams were available for comparison FINDINGS: There is mild thoracolumbar curvature convex left. Prominent left lateral osteophytes noted at L1-L2 and on the right at L2-L3. There is multilevel degenerative disc disease from the lower thoracic region to S1. There is 4 mm anterolisthesis of L4 on L5. Multilevel facet arthritic changes are present at L4-L5 and S1 with facet hypertrophy. No acute fracture or dislocation is evident. Other findings:None. IMPRESSION: Lumbar spondylosis with scoliosis. No acute fracture Dictated by: Daniel Peterson MD 01/31/2021 11:57 Daniel Peterson MD in [facility] 01/31/2021 11:57
--- NOTE | 2021-01-31 11:28 | XR_ITS ---
PROCEDURE: XR HIP LT 2-3V W/PELVIS CLINICAL INDICATION: FALL Pain injury with pain COMPARISON: CR HIPCMLT XR hip LT 2-3V w/pelvis from 11/25/2017 FINDINGS: Mild osteoarthritic changes of the left hip. No acute fracture or dislocation. IMPRESSION: No acute findings. Dictated by: Daniel Peterson MD 01/31/2021 11:53 Daniel Peterson MD in [facility] 01/31/2021 11:53
[2021-01-31 11:53] VITALS: BP 147/71; PULSE 70; RESP 20; TEMP 36.6; O2SAT 98
--- NOTE | 2021-01-31 12:11 | HMH.EDUTC ---
[facility] [place]ression: Left hip pain Fall Qualifiers: Encounter type: initial encounter Qualified Code(s): W19.XXXA - Unspecified fall, initial encounter Low back pain Qualifiers: Chronicity: acute Back pain laterality: left Sciatica presence: without sciatica Qualified Code(s): M54.5 - Low back pain Disposition: Home, Self-Care Condition on Discharge: Good Instructions: How to Prevent Falls, DI for Hip Pain Additional Instructions: Go home and rest. It would be best if you rested tomorrow too. No heavy lifting. No twisting. Take the oral medications as directed. Follow up with your regular doctor. GO TO THE ER FOR ANY WORSENING SYMPTOMS OR CONCERN, ESPECIALLY BOWEL OR BLADDER ISSUES, SADDLE AREA NUMBNESS, FEVER, ETC Prescriptions: predniSONE [Deltasone 10mg tablet] 10 mg PO BID 4 Days #8 tab Transmission Status: Received by [id number] Referrals: Isacc Roberson MD [Primary Care Provider] - Time of Disposition: 12:51 Medical Decision Making - Medical Records Medical records reviewed: No: I reviewed the patient's medical records. - Alessandro Inquiry Pt receiving controlled substance: No Vital Signs: 01/31/21 11:10 01/31/21 11:53 Temperature 97.9 F 97.9 F Temperature Source Temporal Artery Scan Pulse Rate 70 Pulse Rate [Left Brachial] 70 Respiratory Rate 20 20 Blood Pressure 147/71 H Blood Pressure [Left Arm] 147/71 H Blood Pressure Mean [Left Arm] 96 Blood Pressure Source [Left Arm] Automatic Cuff Blood Pressure Position [Left Arm] Sitting 02 Sat by Pulse Oximetry 98 Oxygen Delivery Method Room Air Orders (Tests/Meds): ED MEDICATIONS Discontinued Medications Generic Name Dose Route Start Last Admin Trade Name Freq PRN Reason Stop Dose Admin Ketorolac Tromethamine 30 mg 01/31/21 12:29 01/31/21 12:30 Ketorolac 60mg/2ml Vial IM 01/31/21 12:30 30 mg ONCE ONE Administration - Radiology Data #1 Image(s): L-Spine Image Reviewed: Yes I reviewed the patient's radiology image, Yes I have reviewed radiologist's interpretation Preliminary Findings: No Fracture Seen PROCEDURE: XR LUMBAR SPINE 2-3V CLINICAL INDICATION: FALL Posttraumatic pain COMPARISON: No exams were available for comparison FINDINGS: There is mild thoracolumbar curvature convex left. Prominent left lateral osteophytes noted at L1-L2 and on the right at L2-L3. There is multilevel degenerative disc disease from the lower thoracic region to S1. There is 4 mm anterolisthesis of L4 on L5. Multilevel facet arthritic changes are present at L4-L5 and S1 with facet hypertrophy. No acute fracture or dislocation is evident. Other findings:None. IMPRESSION: Lumbar spondylosis with scoliosis. No acute fracture Dictated by: Daniel Peterson MD 01/31/2021 11:57 Daniel Peterson MD in [facility] 01/31/2021 11:57 #2 Image(s): Pelvis, Hip Image Reviewed: Yes I reviewed the patient's radiology image, Yes I have reviewed radiologist's interpretation Preliminary Findings: No Fracture Seen PROCEDURE: XR HIP LT 2-3V W/PELVIS CLINICAL INDICATION: FALL Pain injury with pain COMPARISON: CR HIPCMLT XR hip LT 2-3V w/pelvis from 11/25/2017 FINDINGS: Mild osteoarthritic changes of the left hip. No acute fracture or dislocation. IMPRESSION: No acute findings. Dictated by: Daniel Peterson MD 01/31/2021 11:53 Daniel Peterson MD in [facility] 01/31/2021 11:53 [facility] [place] - General Stated complaint: a/o 7/9 fell left hip and back pain Time Seen by Provider: 01/31/21 12:12 Mode of Arrival: Ambulatory Source of Information: Patient Limitations: No Limitations Description of Symptoms (Recalled from Triage Doc. by RN): PATIENT REPORTS THAT APPROX 1 WEEK AGO SHE BECAME DIZZY AND FELL AND LANDED ON BUTTOCKS. C/O LEFT HIP AND LOWER BACK PAIN THAT WAS WORSE THIS AM HEENT Symptoms (Recalled from RN notes): No Resp Symptoms (Recalled from RN notes): N
== END 2021-01-31 12:57 | disposition home or self-care (01) ==
PROVIDERS: Emergency Provider Nurse Practitioner Family; PCP Family Medicine
DX: R42 Dizziness and giddiness (principal); M25.552 Pain in left hip; M54.5 Low back pain; W01.0XXA Fall on same level from slipping, tripping and stumbling without subsequent striking against object, initial encounter; Y92.019 Unspecified place in single-family (private) house as the place of occurrence of the external cause; I10 Essential (primary) hypertension; E11.9 Type 2 diabetes mellitus without complications; E03.9 Hypothyroidism, unspecified; Z88.2 Allergy status to sulfonamides
CPT/HCPCS: G0463; 72100; 73502; 96372; 99202

== ENCOUNTER → 2021-02-26 12:59 | Outpatient (POV) | payer MEDICARE, OTHER, SELFPAY | DX: Z00.00 Encounter for general adult medical examination without abnormal findings (principal) ==

== ENCOUNTER 2021-04-21 09:59 | Emergency (ER) | payer MEDICARE, OTHER, SELFPAY ==
[2021-04-21 10:05] VITALS: BP 158/74; PULSE 76; RESP 18; TEMP 36.9; O2SAT 97; BMI 32.0
--- NOTE | 2021-04-21 10:33 | HMH.EDUTC ---
[facility] [place]: Fall Qualifiers: Encounter type: initial encounter Qualified Code(s): W19.XXXA - Unspecified fall, initial encounter Lip laceration Qualifiers: Encounter type: initial encounter Qualified Code(s): S01.511A - Laceration without foreign body of lip, initial encounter Disposition: Home, Self-Care Condition on Discharge: Good Instructions: How to Prevent Falls, DI for Minor Laceration Additional Instructions: Keep the affected area clean and dry. Follow up with your regular doctor. Take the antibiotics as directed. The viscous lidocaine might help with the discomfort of your injured lip. Apply a small amount as directed if it does help. For the next day or so, you could apply ice to your lip wound for a few minutes each time to help prevent swelling and worsening pain. Follow up with your dentist regarding your chipped front tooth. GO TO THE ER FOR ANY WORSENING SYMPTOMS Prescriptions: cephALEXin [cephALEXin 500mg capsule] 500 mg PO Q6H 7 Days #28 cap Transmission Status: Received by [id number] lidocaine HCL [Lidocaine viscous 100mL bottle] 1 applicatio MM TIDP PRN #60 ml PRN Reason: Mouth Irritation Transmission Status: Received by [id number] Referrals: Isacc Roberson MD [Primary Care Provider] - Time of Disposition: 10:41 Medical Decision Making - Medical Records Medical records reviewed: No: I reviewed the patient's medical records. - Alessandro Inquiry Pt receiving controlled substance: No Vital Signs: 04/21/21 10:05 04/21/21 10:47 Temperature 98.4 F 98.4 F Temperature Source Temporal Artery Scan Pulse Rate 76 Pulse Rate [Right Brachial] 76 Respiratory Rate 18 18 Blood Pressure 158/74 H Blood Pressure [Right Arm] 158/74 H Blood Pressure Mean [Right Arm] 102 Blood Pressure Source [Right Arm] Automatic Cuff Blood Pressure Position [Right Arm] Sitting 02 Sat by Pulse Oximetry 97 Oxygen Delivery Method Room Air Medical Decision Narrative: Her superficial lower lip wound was cleaned and assessed thoroughly. She does have 1 tooth with a small chip in it, but no loose teeth or mouth injury noted. [facility] [place] General Stated complaint: a/o 04/21 fell busted lip Time Seen by Provider: 04/21/21 10:33 Mode of Arrival: Ambulatory Source of Information: Patient Limitations: No Limitations Description of Symptoms (Recalled from Triage Doc. by RN): PATIENT STATES SHE TRIPPED OVER A PARKING CURB AND FELL FACEDOWN, BUSTING HER LIP. ABRASION NOTED TO LEFT LOWER LIP. NO OTHER INJURIES NOTED AT THIS TIME. PATIENT DENIES DIZZINESS/SYNCOPE. HEENT Symptoms (Recalled from RN notes): Yes Resp Symptoms (Recalled from RN notes): No Skin Symptoms (Recalled from RN notes): No MS Symptoms (Recalled from RN notes): No Functional Status (Recalled from RN notes): WNL - History of Present Illness Provider Complaint: She states that she tripped stepping up on the curb this morning in the process of bringing her neighbor to the hospital. She fell forwards and came down on her chin. She has a cut on her lower lip that has been bleeding. She also thinks that she chipped one of her top front teeth. She denies any neck pain. She denies any jaw bone pain or pain biting down. She denies any maloccusion of her teeth. She did hit her left knee on the ground, but she states that it is not hurting. She did hit her left wrist on the ground but she denies any pain or injury of it also. Her tetanus immunization is up to date. - Related Data Home Medications Medication Instructions Recorded Confirmed amlodipine 10 mg tablet 10 mg PO DAILY 90 Days tab 08/17/17 01/31/21 fluoxetine 20 mg capsule 20 mg PO DAILY 90 Days cap 08/17/17 01/31/21 metformin 1,000 mg tablet 1,000 mg PO BID 90 Days tab 08/17/17 01/31/21 pravastatin 40 mg tablet 40 mg PO HS 90 Days 10/14/17 01/31/21 Levothyroxine Sodium 50 mcg PO DAILY 10/17/18 01/31/21 [Levothyroxine 50
[2021-04-21 10:47] VITALS: BP 158/74; PULSE 76; RESP 18; TEMP 36.9; O2SAT 97
== END 2021-04-21 10:54 | disposition home or self-care (01) ==
PROVIDERS: Emergency Provider Nurse Practitioner Family; PCP Family Medicine
DX: S01.511A Laceration without foreign body of lip, initial encounter (principal); W18.00XA Striking against unspecified object with subsequent fall, initial encounter; Y92.480 Sidewalk as the place of occurrence of the external cause; I10 Essential (primary) hypertension; E11.9 Type 2 diabetes mellitus without complications; K21.9 Gastro-esophageal reflux disease without esophagitis; E78.5 Hyperlipidemia, unspecified; M81.0 Age-related osteoporosis without current pathological fracture; E03.9 Hypothyroidism, unspecified; F33.1 Major depressive disorder, recurrent, moderate; Z79.899 Other long term (current) drug therapy
CPT/HCPCS: G0463; 99202

== ENCOUNTER 2021-05-25 17:36 | Emergency (ER) | payer MEDICARE, OTHER, SELFPAY ==
[2021-05-25 17:36] VITALS: BMI 31.3
--- NOTE | 2021-05-25 17:39 | XR_ITS ---
PROCEDURE INFORMATION: Exam: XR Right Elbow Exam date and time: 05/25/2021 5:39 PM Age: 80 years old Clinical indication: Injury or trauma; Fall; Blunt trauma (contusions or hematomas); Elbow; Injury details: Patient fell, severe proximal right humerus pain. TECHNIQUE: Imaging protocol: XR Right elbow. Views: 3 or more views. COMPARISON: CR BR3 ELBOW-RT-3 VIEWS 02/14/2016 11:34 AM FINDINGS: Bones/joints: Suboptimal lateral projection. Is no evidence of acute fracture. Soft tissues: Normal. IMPRESSION: No definite fracture. For persistent clinical concern, recommend CT.
--- NOTE | 2021-05-25 17:39 | XR_ITS ---
PROCEDURE INFORMATION: Exam: XR Right Humerus Exam date and time: 05/25/2021 5:39 PM Age: 80 years old Clinical indication: Injury or trauma; Fall; Blunt trauma (contusions or hematomas); Arm, upper; Injury details: Patient fell, severe right proximal humerus pain. TECHNIQUE: Imaging protocol: XR Right humerus. Views: 2 or more views. COMPARISON: CR XR CHEST 2V 08/14/2019 10:53 AM FINDINGS: Bones/joints: A mildly impacted and mildly comminuted fracture of the proximal humerus is seen. There is involvement of neck in the greater tuberosity. The AC joint appears normal. No evidence of glenohumeral dislocation. Soft tissues: Normal. IMPRESSION: Mildly comminuted and impacted proximal right humeral fracture
--- NOTE | 2021-05-25 17:58 | HMH.EDGENADL ---
ED Disposition Clinical Impression: Proximal humeral fracture Qualifiers: Encounter type: initial encounter Fracture type: closed Fracture morphology: unspecified fracture morphology Laterality: right Qualified Code(s): S42.201A - Unspecified fracture of upper end of right humerus, initial encounter for closed fracture Disposition: Home, Self-Care Condition on Discharge: Fair Instructions: DI for Shoulder Fracture, How to Prevent Falls Additional Instructions: Sling and swath until seen by orthopedics. Ice 20 minutes 4 times a day for swelling and pain. Percocet as needed for pain. Follow-up with orthopedics, Dr. Aranda/Shaheed, this week. Call Wednesday to make appointment. Additional instructions for CONTROLLED SUBSTANCES: You have been prescribed a medication that is a controlled substance. Controlled substances include pain medications known as opiates and sedative nerve medications known as benzodiazepines. Tramadol, fioricet, and gabapentin are also controlled substances. Some common opiates include: Codeine (such as Tylenol #3) Hydrocodone (Vicodin, Lortab, Lorcet, [place]) Oxycodone (Percocet, Percodan, Oxycodone, Oxy IR) Some common benzodiazepines include: Diazepam (Valium) Lorazepam (Ativan) Alprazolam (Xanax) Clonazepam (Klonopin) Oxazepam (Serax) All of these controlled substances are highly addictive and frequently abused. Misuse can and frequently does lead to addiction as well as overdose and . Medication should be stored in a locked cabinet or other secure storage unit. Do not store the medication in a motor vehicle. Short term supplies, 3 days or less, are prescribed because of the highly addictive nature of the medication. Any of the controlled substance medication NOT taken should be disposed of properly and NOT SAVED. The recommended method of disposing of unused medications is: Place the medicines in a sealable plastic bag. If the medicine is a solid, crush it or add water to dissolve it. Add something undesirable (cat litter, coffee grounds, etc.) Dispose of sealed bag in household trash Do not flush or pour unused medicines down a sink or drain. Controlled substances should not be shared, given away or sold. Because of the addictive nature and frequent abuse, these medications are sometimes stolen. These medications should be kept in a safe place where they cannot be stolen. Do not keep them in your car or purse. Lost or stolen prescriptions for controlled substances WILL NOT BE REFILLED in this emergency department, regardless of whether a police report was filed. Referrals: Isacc Roberson MD [Primary Care Provider] - Bernardo Aranda JR, MD [Physician] - - Critical Care Critical Care Time: No Attestation: On 05/25/21, the high probability of a clinically significant, sudden or life threatening deterioration of the following system(s) required my full and direct attention, intervention and personal management. The time I documented below is in addition to time spent performing reported procedures but includes the following listed in this critical care notation. Medical Decision Making - Alessandro Inquiry Pt receiving controlled substance: Yes Alessandro was queried for this patient: Yes Risks and benefits of using a controlled substance: were discussed with pt by me - Lab Data Lab Results 05/25/21 18:25: Urine Color Straw, Urine Appearance Clear, Urine pH 7.0, Ur Specific [place] 1.020, Urine Protein Negative, Urine Glucose (UA) Negative, Urine Ketones Negative, Urine Blood Trace-i, Urine Nitrate Negative, Urine Bilirubin Negative, Urine Urobilinogen 0.2, Ur Leukocyte Esterase Negative, Urine RBC Occasional, Ur Squamous Epith Cells 3-5, Amorphous Sediment Trace 05/25/21 18:59: WBC 8.7, RBC 3.97 L, Hgb 11.9 L, Hct 37.2, MCV 93.7, MCH 30.0, MCHC 32.0, RDW 13.8, Plt Count 343, MPV 8.7, Neut % (Auto) 76.7, Lymph % (Auto) 14.7, [place] % (Auto) 5.5, Eos % (Auto) 2.4, B
[2021-05-25 18:00] VITALS: BP 150/70; PULSE 81; O2SAT 97
--- NOTE | 2021-05-25 18:14 | XR_ITS ---
PROCEDURE INFORMATION: Exam: XR Chest Exam date and time: 05/25/2021 6:14 PM Age: 80 years old Clinical indication: Injury or trauma; Fall; Blunt trauma (contusions or hematomas); Injury date: 05/25/2021; Additional info: Not acting right fell FX RT shoulder TECHNIQUE: Imaging protocol: XR of the chest. Views: 1 view. COMPARISON: CR XR CHEST 2V 08/14/2019 10:53 AM FINDINGS: Lungs: Unremarkable. No consolidation. Pleural spaces: Unremarkable. No pleural effusion. No pneumothorax. Heart/Mediastinum: Unremarkable. No cardiomegaly. Bones/joints: Right shoulder fracture again seen. IMPRESSION: No acute cardiopulmonary disease
--- NOTE | 2021-05-25 18:14 | CT_ITS ---
PROCEDURE INFORMATION: Exam: CT Cervical Spine Without Contrast Exam date and time: 05/25/2021 6:14 PM Age: 80 years old Clinical indication: Injury or trauma; Fall; Blunt trauma; Injury date: 05/25/2021; Injury details: Fell TECHNIQUE: Imaging protocol: Computed tomography images of the cervical spine without contrast. Radiation optimization: All CT scans at this facility use at least one of these dose optimization techniques: automated exposure control; mA and/or kV adjustment per patient size (includes targeted exams where dose is matched to clinical indication); or iterative reconstruction. COMPARISON: NECKW CT SOFT TISSUE NECK W/CONTRAST 03/25/2016 9:01 AM FINDINGS: Bones/joints: No acute fracture. Normal alignment. Discs/Spinal canal/Neural foramina: No significant disc protrusion. No severe spinal canal stenosis. No significant neural foraminal narrowing. Lungs: Lung apices are normal. Soft tissues: Unremarkable. IMPRESSION: No acute findings.
--- NOTE | 2021-05-25 18:14 | CT_ITS ---
PROCEDURE INFORMATION: Exam: CT Head Without Contrast Exam date and time: 05/25/2021 6:14 PM Age: 80 years old Clinical indication: Injury or trauma; Fall; Blunt trauma (contusions or hematomas); Without loss of consciousness; Injury date: 05/25/2021 TECHNIQUE: Imaging protocol: Computed tomography of the head without contrast. Radiation optimization: All CT scans at this facility use at least one of these dose optimization techniques: automated exposure control; mA and/or kV adjustment per patient size (includes targeted exams where dose is matched to clinical indication); or iterative reconstruction. COMPARISON: CT HEAD/BRAIN WO CON 09/16/2020 1:47 PM FINDINGS: Brain: White matter hypoattenuation is similar to prior. No intracranial hemorrhage. Cerebral ventricles: No ventriculomegaly. Paranasal sinuses: Mild mucosal thickening in paranasal air sinuses. Mastoid air cells: Visualized mastoid air cells are well aerated. Bones/joints: Unremarkable. No acute fracture. Soft tissues: Unremarkable. IMPRESSION: No acute intracranial pathology
[2021-05-25 18:35] LABS: Microscopic, Urine URINE MICROSCOPIC (MICROSCOPIC)
[2021-05-25 18:36] LABS: Appearance,Urine CLEAR (Clear); Bilirubin,Urine Negative (Negative); Blood, Urine TRACE-I (Negative); Color,Urine STRAW (Yellow); Glucose,Urine (UA) Negative (Negative); Ketones,Urine Negative (Negative); Leukocyte Esterase,Urine Negative (Negative); Nitrate,Urine Negative (Negative); Protein,Urine Negative (Negative); Urobilinogen,Urine 0.2 EU/dl (0.2)
[2021-05-25 18:45] LABS: Amorphous Sediment,Urine Trace /lpf; RBC,Urine Occasional #/hpf (0-3)
[2021-05-25 19:00] VITALS: BP 176/81; PULSE 83; O2SAT 96
[2021-05-25 19:14] LABS: Basophils # 0.1 K/mm3 (0-0.2); Basophils % 0.7 % (0.1-2.0); Eosinophils # 0.2 K/mm3 (0.0-0.4); Eosinophils % 2.4 % (0.1-12.0); Hematocrit 37.2 % (37.0-47.0); Hemoglobin 11.9 g/dL (12.2-16.2); Lymphocytes # 1.3 K/mm3 (0.7-4.5); Lymphocytes % 14.7 % (10-50); Mean Corpuscular Volume 93.7 fl (81-99); Mean Platelet Volume 8.7 fl (7.4-10.4); Monocytes # 0.5 K/mm3 (0.1-1.0); Monocytes % 5.5 % (1.7-9.3); Neutrophils # 6.7 K/mm3 (1.8-7.8); Neutrophils % 76.7 % (37.0-80.0); Platelet Count 343 K/mm3 (142-424); Red Blood Count 3.97 M/mm3 (4.20-5.40); Red Cell Distribution Width 13.8 % (11.5-17.5); White Blood Count 8.7 K/mm3 (4.8-10.8)
[2021-05-25 19:15] LABS: Chloride 104 mmol/L (98-107); Sodium 138 mmol/L (136-145)
[2021-05-25 19:16] LABS: Potassium 4.4 mmoL/L (3.5-5.1)
[2021-05-25 19:18] LABS: Alanine Aminotransferase 17 U/L (12-78); Alkaline Phosphatase 111 U/L (38-126); Aspartate Amino Transferase 29 U/L (14-36); Bilirubin,Total 0.2 mg/dl (0.2-1.3); Blood Urea Nitrogen 11 mg/dl (7-17); Creatinine Clearance Estimated 50 mL/min (50-200); Estimated Glomerular Filt Rate 81 ml/min (>60); GFR (African American) 98 ML/MIN (>60)
[2021-05-25 19:19] LABS: Albumin Level 4.3 g/dl (3.5-5.0); Albumin/Globulin Ratio 1.5 (1.1-1.8); Anion Gap 13.4 mEq/L (5-15); Calcium 9.2 mg/dl (8.4-10.2); Carbon Dioxide 25 mmol/L (22.0-30.0); Globulin 2.8 g/dL (1.3-3.2); Glucose 167 mg/dl (74-100); Total Protein,Serum 7.1 g/dl (6.3-8.2)
[2021-05-25 19:30] VITALS: BP 175/84; PULSE 84; O2SAT 96
[2021-05-25 19:31] LABS: Troponin I < 0.01 ng/ml (0.00-0.034)
[2021-05-25 20:14] VITALS: BP 154/78; PULSE 89; RESP 16; TEMP 37.1; O2SAT 97
== END 2021-05-25 20:14 | disposition home or self-care (01) ==
PROVIDERS: Emergency Provider Emergency Medicine; PCP Family Medicine
DX: S42.201A Unspecified fracture of upper end of right humerus, initial encounter for closed fracture (principal); W18.00XA Striking against unspecified object with subsequent fall, initial encounter; Y92.014 Private driveway to single-family (private) house as the place of occurrence of the external cause; E11.9 Type 2 diabetes mellitus without complications; I10 Essential (primary) hypertension; K21.9 Gastro-esophageal reflux disease without esophagitis; M81.0 Age-related osteoporosis without current pathological fracture; F33.1 Major depressive disorder, recurrent, moderate
CPT/HCPCS: 70450; 71045; 72125; 73060; 73080; 80053; 81001; 84484; 85025; 93005; 96374; 96375; 99281; J2405

== ENCOUNTER → 2021-06-20 12:06 | Outpatient (CLI) | payer MEDICARE, OTHER, SELFPAY ==
--- NOTE | 2021-06-20 12:11 | XR_ITS ---
PROCEDURE: XR SHOULDER RT MIN 2V CLINICAL INDICATION: RT proximal humerus fx COMPARISON: CR XR CHEST PORTABLE from 05/25/2021 FINDINGS: There is a healing right humeral neck fracture. The distal fracture fragment is displaced medially and anteriorly right approximately 12 mm. Developing callus formation noted at the fracture site. Humeral head appears located. There are osteoarthritic changes of the acromioclavicular joint. IMPRESSION: Healing displaced right humeral neck fracture. Dictated by: Daniel Peterson MD 06/20/2021 12:56 Daniel Peterson MD in [facility] 06/20/2021 12:56
== END ==
PROVIDERS: PCP Family Medicine; Visit Provider Orthopaedic Surgery
DX: S42.201A Unspecified fracture of upper end of right humerus, initial encounter for closed fracture (principal)
CPT/HCPCS: 73030

== ENCOUNTER → 2021-07-18 10:29 | Outpatient (CLI) | payer MEDICARE, OTHER, SELFPAY ==
--- NOTE | 2021-07-18 10:34 | XR_ITS ---
PROCEDURE INFORMATION: Exam: XR Right Shoulder Exam date and time: 07/18/2021 10:34 AM Age: 80 years old Clinical indication: Pain; Shoulder; Left; Patient HX: Follow up proximal humerus fracture; Additional info: RT proximal humerus FX TECHNIQUE: Imaging protocol: XR Right shoulder. Views: 2 or more views. COMPARISON: CR XR SHOULDER RT MIN 2V 06/20/2021 12:16 PM FINDINGS: Bones/joints: Chronic fracture of the neck of the humerus with callus formation unchanged from previous study. No additional displacement. Narrative changes at the AC joint. Soft tissues: Normal. IMPRESSION: Chronic fracture of the neck of the humerus with callus formation. Overall appearance is unchanged from previous examination dated June 20 2021.
== END ==
PROVIDERS: PCP Family Medicine; Visit Provider Orthopaedic Surgery
DX: S42.201A Unspecified fracture of upper end of right humerus, initial encounter for closed fracture (principal)
CPT/HCPCS: 73030

== ENCOUNTER → 2021-08-15 09:35 | Outpatient (CLI) | payer MEDICARE, OTHER, SELFPAY ==
--- NOTE | 2021-08-15 09:41 | XR_ITS ---
FINAL REPORT CLINICAL HISTORY: Rt proximal humerus fracture COMPARISON: July 18, 2021 FINDINGS: RIGHT SHOULDER Three views demonstrate no dislocation. There is progressive healing of the transverse, displaced fracture of the surgical neck of the right humerus. There is increased callus formation. There are moderate hypertrophic changes of the acromioclavicular joint. The soft tissues are unremarkable. IMPRESSION: Progressive healing fracture deformity of the proximal right humerus. Reviewed, Interpreted and Dictated by Joe Simmons MD Transcribed by Cherelle Hahn Authenticated by Joe Simmons MD on 08/15/2021 11:18:28 AM [facility]
== END ==
PROVIDERS: PCP Family Medicine; Visit Provider Orthopaedic Surgery
DX: S52.121A Displaced fracture of head of right radius, initial encounter for closed fracture (principal)
CPT/HCPCS: 73030

== ENCOUNTER 2021-10-03 10:19 | Emergency (ER) | payer MEDICARE, OTHER, SELFPAY ==
[2021-10-03 12:20] VITALS: BP 154/53; PULSE 75; RESP 18; TEMP 36.4; O2SAT 97; BMI 26.5
--- NOTE | 2021-10-03 13:06 | HMH.EDUTC ---
[facility] [place] Clinical Impression: Sciatica of left side Disposition: Home, Self-Care Condition on Discharge: Good Instructions: DI for Sciatica Additional Instructions: You have been given Toradol and Depo Medrol injections. Follow up with Dr Roberson next week as scheduled Referrals: Isacc Roberson MD [Primary Care Provider] - Time of Disposition: 13:20 Medical Decision Making - Alessandro Inquiry Pt receiving controlled substance: No Vital Signs: 10/03/21 12:20 Temperature 97.5 F L Temperature Source Oral Pulse Rate [Right Brachial] 75 Respiratory Rate 18 Blood Pressure [Right Arm] 154/53 H Blood Pressure Mean [Right Arm] 86 Blood Pressure Source [Right Arm] Automatic Cuff Blood Pressure Position [Right Arm] Sitting 02 Sat by Pulse Oximetry 97 Oxygen Delivery Method Room Air - Lab Data Lab results reviewed: Yes: I reviewed the patient's lab results. Reviewed last BMP - creatinine 0.7, GFR 81 [facility] [place] - General Stated complaint: lower back pain, no accident Time Seen by Provider: 10/03/21 13:13 Mode of Arrival: Ambulatory Source of Information: Patient Limitations: No Limitations Description of Symptoms (Recalled from Triage Doc. by RN): PATIENT C/O LOWER BACK PAIN THAT RADIATES DOWN LEFT LEG SINCE YESTERDAY. HEENT Symptoms (Recalled from RN notes): No Resp Symptoms (Recalled from RN notes): No Skin Symptoms (Recalled from RN notes): No MS Symptoms (Recalled from RN notes): Yes Functional Status (Recalled from RN notes): WNL - History of Present Illness Provider Complaint: Patient has been having pain in her low back, radiating down left leg. Was treated for sciatica last summer and this feels similar. Started about a month ago and is getting worse. She has had a few falls and is in OT for a fracture of her right humerus, so hasn't been able to do as much of her other exercise as she is used to. Onset (ago): month(s) (1) Location: left, lower extremity Radiation: back Quality: burning, aching, dull Relieving factors: none Exacerbating factors: movement Associated symptoms: denies other symptoms Treatments prior to arrival: other (pain patch) - Related Data Home Medications Medication Instructions Recorded Confirmed amlodipine 10 mg tablet 10 mg PO DAILY 90 Days tab 08/17/17 08/15/21 metformin 1,000 mg tablet 1,000 mg PO BID 90 Days tab 08/17/17 08/15/21 pravastatin 40 mg tablet 40 mg PO HS 90 Days 10/14/17 08/15/21 Levothyroxine Sodium 50 mcg PO DAILY 10/17/18 08/15/21 [Levothyroxine 50mcg (0.05mg) Tab] lisinopril 10 mg tablet 10 mg PO DAILY 11/03/18 08/15/21 fluoxetine 40 mg capsule 40 mg PO DAILY cap 08/15/21 08/15/21 pioglitazone 30 mg tablet 30 mg PO DAILY tab 08/15/21 08/15/21 Previous Rx's Medication Instructions Recorded lidocaine HCL [Lidocaine viscous 1 applicatio MM TIDP PRN #60 ml 04/21/21 100mL bottle] Allergies Allergy/AdvReac Type Severity Reaction Status Date / Time Sulfa (Sulfonamide Allergy Mild Hives Verified 08/15/21 09:58 Antibiotics) [SULFA (SULFONAMIDE ANTIBIOTICS)] trimethoprim [From BACTRIM] Allergy Mild Hives Verified 08/15/21 09:58 - Worker's Comp Is this a Worker's Comp case?: No [facility] History - Hepatitis A Screen Drug use history?: No High risk sexual behaviors?: No History of sexually transmitted infection?: No Currently employed?: No Childcare worker?: No Do you have indoor plumbing?: Yes Do you have electricity?: Yes Attestation statement:: This patient has been screened for Hepatitis A risk factors. I have reviewed the patient's past medical history: Yes Medical History: Reports:: Depression, Diabetes Mellitus Type 2, Gastroesophageal Reflux Disease(GERD), Hyperlipidemia, Hypertension, Osteoporosis Denies:: Aneurysm, Anxiety, Arrhythmia, Atrial Fibrillation, Cancer, Chronic Obstructive Pulmonary Disease (COPD), Cerebrovascular Accident, Diabetes Mellitus Type 1, Internal Pacemaker, MRSA, My
[2021-10-03 13:26] VITALS: BP 154/53; PULSE 75; RESP 18; TEMP 36.4; O2SAT 97
== END 2021-10-03 13:33 | disposition home or self-care (01) ==
PROVIDERS: Emergency Provider Physician Assistant; PCP Family Medicine
DX: M54.42 Lumbago with sciatica, left side (principal); I10 Essential (primary) hypertension; K21.9 Gastro-esophageal reflux disease without esophagitis; E78.5 Hyperlipidemia, unspecified; E11.9 Type 2 diabetes mellitus without complications; E03.9 Hypothyroidism, unspecified; M19.90 Unspecified osteoarthritis, unspecified site; M81.0 Age-related osteoporosis without current pathological fracture; E66.9 Obesity, unspecified; F32.A Depression, unspecified; Z79.84 Long term (current) use of oral hypoglycemic drugs; Z79.899 Other long term (current) drug therapy; Z88.2 Allergy status to sulfonamides; Z88.8 Allergy status to other drugs, medicaments and biological substances; Z68.26 Body mass index [BMI] 26.0-26.9, adult; Z80.9 Family history of malignant neoplasm, unspecified; Z83.3 Family history of diabetes mellitus
CPT/HCPCS: 96372; 99213; G0463; J1030

== ENCOUNTER 2021-11-12 11:00 | Outpatient (RCR) | payer MEDICARE, OTHER, SELFPAY ==
--- NOTE | 2021-08-26 10:36 | HMH.OTOPEV ---
OT Inpatient Evaluation Rehab OT Outpatient Eval Start: 08/26/21 10:26 Freq: Status: Active Protocol: Document 08/26/21 10:27 [facility] (Rec: 08/26/21 10:36 [facility] [id number]) Electronically Signed By Serena Demarco OT 08/26/21 10:27 Outpatient Therapy Subjective History Subjective History Pt is a 80 year old female who reports to therapy for initial evaluation to right UE follwoing a proximal humerus fx. Pt reports on 05/25/21 she fell while taking out the trash. She landed on her right shoulder and heard a snap . She was treated non- operatively and was in a sling up until ~2 weeks ago. Pt claims she has been doing exercises on her own at home. She does demonstrate with decreased AROM and strength at right shoulder. Pt has a past medical history of arthritis, scoliosis, diabetes , and htn. Pt will continue to be seen twice a week in order to address all right UE deficits. Chief Complaint Pain,Stiff,Weakness Symptom Type Ache,Other Symptoms Relieved By Rest/Positioning,Heat,Ice,OTC Meds Symptoms Aggravated By Physical Activity,Lifting Prior Functional Limitations None Current Functional Limitations Reaching,Lifting,Housework, Driving,Sleeping,Recreation Activity Symptom Description Intermittent,Activity Dependent Level of pain today (0-10) 0 Pain scale - at its best (0-10) 0 Pain scale - at its worst (0-10) 4 Shoulder/Elbow Eval Shoulder Objective Measurements Shoulder ROM Right Shoulder Abduction Active Range of 85 degrees Motion (degrees) Shoulder Flexion Active Range of Motion 80 degrees (degrees) Query Text: Shoulder External Rotation Active Range 60 degrees of Motion (degrees) Shoulder Internal Rotation Active Range 60 degrees of Motion (degrees) pain with active ROM shoulder exam right standard pain with passive ROM shoulder exam right standard decreased ROM shoulder exam standard right Shoulder MMT Shoulder Abduction Stre
--- NOTE | 2021-09-23 11:43 | HMH.RHREAS ---
Rehab Reassessment Rehab OP Re-assessment Start: 09/23/21 11:11 Freq: Status: Active Protocol: Document 09/23/21 11:12 JOZEF (Rec: 09/23/21 11:43 JOZEF [id number]) Electronically Signed By Serena Demarco OT 09/23/21 11:12 Rehab Re-assessment Subjective Subjective It feels okay really. Objective Objective Notes Pt continues to be seen twice weekly in order to address R shoulder deficits. Each session, pt engages in R shoulder AROM, AAROM, and strengthening exercises. Therapeutic manual stretching is provided to right shoulder in all planes. Modalities are provided in order to decrease pain/inflammation. Assessment Progress Assessment Progressing as Expected Assessment Notes Overall patient is doing very well with right shoulder. Pt reports she has minimal pain, if any at the shoulder. Pt's AROM and strength continues to remain limited. Pt also reports she is able to complete all ADLs and IADLs at home that is required. Pt returns to ortho on the last wednesday of October. Right shoulder AROM Flex: 110 degrees Abd: 112 degrees ER: 70 degrees IR: 75 degrees Patient goals met STG 1-5 Goals Not Met See below Revised Goals LT-5 Plan Plan Continue with OT plan of care at this time Frequency of Therapy 2x's a week Duration of therapy 4 more weeks Time and Billing Re-Eval Time 10 Re-Eval Billing Units 1 PHYSICIAN CERTIFICATION: I certify the specified therapy services for Rossana Ash are required, authorized, and reviewed every 30 days.
--- NOTE | 2021-10-24 10:20 | HMH.RHREAS ---
Rehab Reassessment Rehab OP Re-assessment Start: 09/23/21 11:11 Freq: Status: Active Protocol: Document 10/24/21 10:03 JOZEF (Rec: 10/24/21 10:20 JOZEF [id number]) Electronically Signed By Serena Demarco OT 10/24/21 10:03 Rehab Re-assessment Subjective Subjective I think I am cured. Objective Objective Notes Pt continues to be seen twice weekly in order to address R shoulder deficits. Each session, pt engages in R shoulder AROM, AAROM, and strengthening exercises. Therapeutic manual stretching is provided to right shoulder in all planes. Modalities are provided in order to decrease pain/inflammation. Assessment Progress Assessment Progressing as Expected Assessment Notes Overall patient is doing very well with right shoulder. Pt reports she no longer has any pain at the shoulder.. Pt's AROM and strength continues to remain limited, but has improved since last re- assessment. Pt also reports she is able to complete all ADLs and IADLs at home that is required. Pt returns to ortho on the last wednesday of October. Right shoulder AROM Flex: 112 degrees Abd: 120 degrees ER: 80 degrees IR: 80 degrees Patient goals met STG 1-5 Goals Not Met See below Revised Goals LT-5 Plan Plan Continue with OT plan of care at this time Frequency of Therapy 2x's a week Duration of therapy 4 more weeks Time and Billing Re-Eval Time 10 Re-Eval Billing Units 1 PHYSICIAN CERTIFICATION: I certify the specified therapy services for Rossana Ash are required, authorized, and reviewed every 30 days.
== END 2021-11-12 11:05 | disposition home or self-care (01) ==
LOC: OT 11:00
PROVIDERS: PCP Family Medicine; Visit Provider Orthopaedic Surgery
DX: S52.121A Displaced fracture of head of right radius, initial encounter for closed fracture (principal)
CPT/HCPCS: 97010; 97014; 97110; 97140; 97164; 97166; G0283

== ENCOUNTER → 2021-11-14 09:10 | Outpatient (CLI) | payer MEDICARE, OTHER, SELFPAY ==
--- NOTE | 2021-11-14 09:13 | XR_ITS ---
FINAL REPORT CLINICAL HISTORY: humerus fracture COMPARISON: August 15, 2021 FINDINGS: 2 views of the right humerus were obtained. There is progressive callus formation at the fracture site consistent with healing fracture. There are moderate hypertrophic changes at the AC joint. There is no acute soft tissue abnormality. IMPRESSION: Interval further healing of the fracture. Reviewed, Interpreted and Dictated by Joe Simmons MD Transcribed by Pee Benz Authenticated by Joe Simmons MD on 11/14/2021 10:01:[address] [facility]
== END ==
PROVIDERS: PCP Family Medicine; Visit Provider Orthopaedic Surgery
DX: S52.121A Displaced fracture of head of right radius, initial encounter for closed fracture (principal)
CPT/HCPCS: 73060

== ENCOUNTER → 2021-11-24 09:25 | Outpatient (CLI) | payer MEDICARE, OTHER, SELFPAY ==
--- NOTE | 2021-11-24 09:32 | XR_ITS ---
FINAL REPORT TECHNIQUE: Bone mineral density was calculated of the lumbar spine and hip. CLINICAL HISTORY: . post menopausal, prior dexa 2019 FINDINGS: DEXA BONE DENSITY AXIAL SKELETON Using L1-4, the bone mineral density of the spine is 1.070 g/cm2, corresponding to T-score of 0.2. These values are likely falsely elevated secondary to hypertrophic change. Using the right hip, the bone mineral density of the femoral neck is 0.624 g/cm2, corresponding to a T-score of -2.0. NOTE: T-score: Standard deviation compared with peak bone mass of young adult mean. *Following the recommendations of the International Society of Bone densitometry, classification of hip BMD is based on the lower of two T-scores; total hip or femoral neck. IMPRESSION: Diminished bone mineral density of the lumbar spine and right hip consistent with osteopenia. FRAX 10 year fracture risk is 21% for major osteoporotic fracture. Reviewed, Interpreted and Dictated by Emiliano Rebolledo III, MD Transcribed by Cherelle Hahn Authenticated by Emiliano Rebolledo III, MD on 11/24/2021 01:24:07 PM [facility]
--- NOTE | 2021-11-24 09:33 | MM_ITS ---
PROCEDURE INFORMATION: Exam: MG Bilateral Screening 3D Mammography Exam date and time: 11/24/2021 9:42 AM Age: 81 years old Clinical indication: Screening examination TECHNIQUE: Imaging protocol: Bilateral Screening tomosynthesis and 2D mammography including computer-aided detection (CAD) when performed. COMPARISON: 1. MG MM DIG SCREENING MAMM BI W/CAD 05/27/2020 10:03 AM 2. MG MM DIG SCREENING MAMM BI W/CAD 05/25/2019 9:19 AM 3. MG SCBI MM Dig screening mamm BI w/CAD 03/30/2018 11:06 AM FINDINGS: MAMMOGRAPHY: Breast composition: There are scattered areas of fibroglandular density. Mass: No suspicious masses. Architectural distortion: No suspicious distortion. Calcifications: No suspicious calcifications. Asymmetric density: None. Skin thickening: None. Axillary adenopathy: None. IMPRESSION: No mammographic evidence of malignancy. Annual screening is recommended unless otherwise clinically indicated. ASSESSMENT: BI-RADS Category 1: Negative
== END ==
PROVIDERS: PCP Family Medicine; Visit Provider Family Medicine
DX: Z12.31 Encounter for screening mammogram for malignant neoplasm of breast (principal); Z78.0 Asymptomatic menopausal state
CPT/HCPCS: 77063; 77067; 77080

== ENCOUNTER → 2021-12-26 10:35 | Outpatient (CLI) | payer MEDICARE, OTHER, SELFPAY ==
--- NOTE | 2021-12-26 10:39 | CA_ITS ---
FINAL REPORT TECHNIQUE: Color Doppler, duplex Doppler and carr scale sonography of the bilateral neck arterial vasculature was performed. Velocities were measured in the carotid arteries. Stenosis evaluation based on the validated velocity criteria. CLINICAL HISTORY: DIZZINESS FINDINGS: The peak systolic velocity of the right common carotid artery is 77 cm/s. The peak systolic velocity of the right internal carotid artery is 150 cm/s and end diastolic velocity 25 cm/s. The ICA/CCA ratio is 2.43. A small amount of plaque is present. The right external carotid artery is patent. The right vertebral artery is patent with antegrade flow. The peak systolic velocity of the left common carotid artery is 71 cm/s. The peak systolic velocity of the left internal carotid artery is 151 cm/s and end diastolic velocity 25 cm/s. The ICA/CCA ratio is 3.36. A small amount of plaque is present. The left external carotid artery is patent.The left vertebral artery is patent with antegrade flow. A cyst is noted in the right thyroid lobe. IMPRESSION: Less than 50% bilateral carotid stenoses. Bilateral patent vertebral arteries with antegrade flow. If indicated, CTA or MRA could further evaluate. Reviewed, Interpreted and Dictated by Emiliano Rebolledo III, MD Transcribed by Sierra Otto Authenticated and [facility]
== END ==
PROVIDERS: PCP Family Medicine; Visit Provider Nurse Practitioner Family
DX: R42 Dizziness and giddiness (principal)
CPT/HCPCS: 93880

== ENCOUNTER 2022-02-19 16:54 | Emergency (ER) | payer MEDICARE, OTHER, SELFPAY ==
[2022-02-19 17:23] VITALS: BP 141/58; PULSE 77; RESP 17; TEMP 36.6; O2SAT 98; BMI 31.3
--- NOTE | 2022-02-19 17:23 | XR_ITS ---
PROCEDURE INFORMATION: Exam: XR Right Ribs with PA Chest Exam date and time: 02/19/2022 5:33 PM Age: 81 years old Clinical indication: Injury or trauma; Fall; Rib area; Blunt trauma (contusions or hematomas); Additional info: Fall/rib pain TECHNIQUE: Imaging protocol: Radiologic exam of the Right ribs with PA chest. Views: 3 views COMPARISON: CR XR CHEST PORTABLE 05/25/2021 6:43 PM FINDINGS: Lungs: No acute airspace consolidation. No appreciable pulmonary edema. Pleural spaces: No pleural effusion. No pneumothorax. Heart/Mediastinum: Within normal limits. Bones/joints: Acute minimally displaced fracture of the anterior right 10th rib. No other fractures are evident. IMPRESSION: Acute minimally displaced fracture of the anterior right 10th rib. No other fractures are evident.
--- NOTE | 2022-02-19 17:37 | HMH.EDUTC ---
[facility] [place] Disposition Clinical Impression: Right rib fracture Qualifiers: Encounter type: initial encounter Rib fracture type: single rib Fracture type: closed Qualified Code(s): S22.31XA - Fracture of one rib, right side, initial encounter for closed fracture Fall Qualifiers: Encounter type: initial encounter Qualified Code(s): W19.XXXA - Unspecified fall, initial encounter Disposition: Home, Self-Care Condition on Discharge: Good Instructions: How to Use an Incentive Spirometer, Rib Fracture, DI for Rib Fracture Additional Instructions: Use the incentive spirometer that we supplied you. Use it 10 times every 2 hours while you are awake for the next 2 to 3 weeks. Take ibuprofen for pain. I sent in a prescription to your pharmacy. Follow up with your regular doctor. GO TO THE ER FOR ANY WORSENING SYMPTOMS Prescriptions: Ibuprofen [Ibuprofen 600mg Tablet] 600 mg PO Q6HP PRN #30 tab PRN Reason: Mild Pain Transmission Status: Received by [id number] Referrals: Isacc Roberson MD [Primary Care Provider] - Time of Disposition: 18:10 Medical Decision Making - Medical Records Medical records reviewed: No: I reviewed the patient's medical records. - Alessandro Inquiry Pt receiving controlled substance: No Vital Signs: 02/19/22 17:23 02/19/22 18:18 Temperature 97.9 F 97.9 F Temperature Source Oral Pulse Rate 77 Pulse Rate [Left] 77 Respiratory Rate 17 17 Blood Pressure 141/58 H Blood Pressure [Right Arm] 141/58 H Blood Pressure Mean [Right Arm] 85 02 Sat by Pulse Oximetry 98 [facility] [place] HPI - General Stated complaint: AO 02/10 @2130 FELL and R side pain Time Seen by Provider: 02/19/22 17:39 Mode of Arrival: Ambulatory Source of Information: Patient Limitations: No Limitations Description of Symptoms (Recalled from Triage Doc. by RN): patient comes in for right sided rib pain. patient had a fall on 02/10. patient was managing pain at home, but states that it continues to bother her. HEENT Symptoms (Recalled from RN notes): No Resp Symptoms (Recalled from RN notes): No Skin Symptoms (Recalled from RN notes): No MS Symptoms (Recalled from RN notes): Yes Functional Status (Recalled from RN notes): n/a - History of Present Illness Provider Complaint: She states that she fell at home 1 week ago. She thought that she was ok, but she has continued to have right rib pain. She fell in a way that her right side came down on the arm of a chair. She denies any other injury. - Related Data Home Medications Medication Instructions Recorded Confirmed amlodipine 10 mg tablet 10 mg PO DAILY 90 Days tab 08/17/17 11/14/21 metformin 1,000 mg tablet 1,000 mg PO BID 90 Days tab 08/17/17 11/14/21 pravastatin 40 mg tablet 40 mg PO HS 90 Days 10/14/17 11/14/21 Levothyroxine Sodium 50 mcg PO DAILY 10/17/18 11/14/21 [Levothyroxine 50mcg (0.05mg) Tab] lisinopril 10 mg tablet 10 mg PO DAILY 11/03/18 11/14/21 fluoxetine 40 mg capsule 40 mg PO DAILY cap 08/15/21 11/14/21 pioglitazone 30 mg tablet 30 mg PO DAILY tab 08/15/21 11/14/21 Previous Rx's Medication Instructions Recorded lidocaine HCL [Lidocaine viscous 1 applicatio MM TIDP PRN #60 ml 04/21/21 100mL bottle] Ibuprofen [Ibuprofen 600mg 600 mg PO Q6HP PRN #30 tab 02/19/22 Tablet] Allergies Allergy/AdvReac Type Severity Reaction Status Date / Time Sulfa (Sulfonamide Allergy Mild Hives Verified 02/19/22 17:32 Antibiotics) [SULFA (SULFONAMIDE ANTIBIOTICS)] trimethoprim [From BACTRIM] Allergy Mild Hives Verified 02/19/22 17:32 - Worker's Comp Is this a Worker's Comp case?: No [facility] History - Hepatitis A Screen Attestation statement:: This patient has been screened for Hepatitis A risk factors. I have reviewed the patient's past medical history: Yes Medical History: Reports:: Depression, Diabetes Mellitus Type 2, Gastroesophageal Reflux Disease(GERD), Hyperlipidemia, Hypertension, Osteoporosis
[2022-02-19 18:18] VITALS: BP 141/58; PULSE 77; RESP 17; TEMP 36.6
== END 2022-02-19 18:19 | disposition home or self-care (01) ==
PROVIDERS: Emergency Provider Nurse Practitioner Family; PCP Family Medicine
DX: S22.31XA Fracture of one rib, right side, initial encounter for closed fracture (principal); W19.XXXA Unspecified fall, initial encounter; Z88.2 Allergy status to sulfonamides
CPT/HCPCS: 71101; 99212; G0463

== ENCOUNTER 2022-10-31 15:22 | Emergency (ER) | payer MEDICARE, OTHER, SELFPAY ==
[2022-10-31 15:40] VITALS: BP 143/68; PULSE 91; RESP 18; TEMP 36.7; O2SAT 96; BMI 31.8
--- NOTE | 2022-10-31 16:30 | EXP.UTC ---
Discharge Plan Disposition Patient Disposition: Home, Self-Care Condition: Good Prescriptions Prescriptions: New loratadine 10 mg tablet 10 mg PO DAILY Qty: 30 1RF No Action amlodipine 10 mg tablet 10 mg PO DAILY 90 Days Label Comments: metformin 1,000 mg tablet 1,000 mg PO BID 90 Days Label Comments: lisinopril 10 mg tablet 10 mg PO DAILY pravastatin 40 mg tablet 40 mg PO HS 90 Days Label Comments: pioglitazone 30 mg tablet 30 mg PO DAILY Label Comments: TAKE 1 TABLET BY MOUTH ONCE DAILY fluoxetine 40 mg capsule 40 mg PO DAILY Label Comments: TAKE 1 CAPSULE BY MOUTH ONCE DAILY levothyroxine 50 MCG tablet 50 mcg PO DAILY lidocaine HCl 100 ML/BOT bottle 1 applicatio mucous membrane TIDP PRN (Reason: Mouth Irritation) Qty: 60 0RF ibuprofen 600 MG tablet 600 mg PO Q6HP PRN (Reason: Mild Pain) Qty: 30 0RF Referrals Follow up/Referrals: Isacc Roberson MD [Primary Care Provider] - See instructions Clinical Impressions Clinical Impression: Sinusitis, acute frontal Instructions Patient Instructions: DI for Sinusitis Discharge ED Provider: Sosa Ye [facility] General Stated complaint: Headache for 2 days, Dizziness Mode of Arrival: Ambulatory Source of Information: Patient Limitations: No Limitations Time Seen by Provider: 10/31/22 16:30 Description of Symptoms (Recalled from Triage Doc. by RN): PATIENT C/O MIGRAINE WITH DIZZINESS AND NAUSEA SINCE YESTERDAY HEENT Symptoms (Recalled from RN notes): Yes Resp Symptoms (Recalled from RN notes): No Skin Symptoms (Recalled from RN notes): No MS Symptoms (Recalled from RN notes): No Functional Status (Recalled from RN notes): WNL History of Present Illness Provider Complaint: Pt states that she often has migraines. She reports frontal lobe headache with post nasal sinus drainage, ears popping, and dizziness. She states that she took Advil dual and that usually helps but it did not help today. She rates her pain a 3 on a 10 point scale. She states that her sisters insisted she be seen. Related Data Home Medications Medication Instructions Recorded Confirmed amlodipine 10 mg tablet 10 mg PO DAILY Hypertension 90 days 08/17/17 08/13/22 metformin 1,000 mg tablet 1,000 mg PO BID Diabetes 90 days 08/17/17 08/13/22 pravastatin 40 mg tablet 40 mg PO HS Cholesterol 90 days 10/14/17 08/13/22 levothyroxine 50 mcg tablet 50 mcg PO DAILY thyroid 10/17/18 10/31/22 lisinopril 10 mg tablet 10 mg PO DAILY Hypertension 11/03/18 08/13/22 fluoxetine 40 mg capsule 40 mg PO DAILY 08/15/21 08/13/22 pioglitazone 30 mg tablet 30 mg PO DAILY 08/15/21 08/13/22 Previous Rx's Medication Instructions Recorded lidocaine HCl 2 % mucosal solution 1 applicatio mucous membrane TIDP 04/21/21 PRN Mouth Irritation #60 mL ibuprofen 600 mg tablet 600 mg PO Q6HP PRN Mild Pain #30 02/19/22 tabs loratadine 10 mg tablet 10 mg PO DAILY #30 tabs 10/31/22 Allergies Allergy/AdvReac Type Severity Reaction Status Date / Time Sulfa (Sulfonamide Allergy Mild Hives Verified 08/13/22 13:53 Antibiotics) [SULFA (SULFONAMIDE ANTIBIOTICS)] trimethoprim [From BACTRIM] Allergy Mild Hives Verified 08/13/22 13:53 Worker's Comp Is this a Worker's Comp case?: No [facility] Disclaimer: The information contained in this section may have been updated after the patient was seen, as this information can be updated by other users. Social History Smoking Status: Never smoker second hand exposure: Yes alcohol intake: never counseling provided: none current occupational status: other Travel in the last 8 weeks: None household members: none housing: house education level: high school current occupational exposures/hazards: No caffeine: No ROS Obtained: Yes All systems reviewed & no additional compl
[2022-10-31 16:51] VITALS: BP 143/68; PULSE 91; RESP 18; TEMP 36.7; O2SAT 96
== END 2022-10-31 16:56 | disposition home or self-care (01) ==
PROVIDERS: Emergency Provider Nurse Practitioner Family; PCP Family Medicine
DX: J01.10 Acute frontal sinusitis, unspecified (principal)
CPT/HCPCS: 99212; 99214; G0463

== ENCOUNTER → 2022-12-31 10:36 | Outpatient (CLI) | payer MEDICARE, OTHER, SELFPAY ==
--- NOTE | 2022-12-31 10:42 | XR_ITS ---
FINAL REPORT CLINICAL HISTORY: rt knee pain COMPARISON: None FINDINGS: Three views of the right knee reveal no evidence of fracture or dislocation. 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 The bony alignment is normal. There is no evidence of joint effusion. No localized soft tissue abnormality is identified. IMPRESSION: No acute abnormality identified. Reviewed, Interpreted and Dictated by Emiliano Rebolledo III, MD Transcribed by Kaela Easley Authenticated and [facility]
== END ==
PROVIDERS: PCP Family Medicine; Visit Provider Orthopaedic Surgery
DX: M25.561 Pain in right knee (principal)
CPT/HCPCS: 73562

== ENCOUNTER 2023-03-08 13:24 | Emergency (ER) | payer MEDICARE, OTHER, SELFPAY ==
[2023-03-08 14:30] VITALS: BP 183/91; PULSE 72; RESP 18; O2SAT 97
--- NOTE | 2023-03-08 14:38 | XR_ITS ---
FINAL REPORT TECHNIQUE: Chest PA & Lateral CLINICAL HISTORY: Shortness of breath COMPARISON: 05/25/2021 FINDINGS: 2 views of the chest were performed. The heart size is normal. The mediastinum is within normal limits. There is no acute cardiopulmonary process. There are no pleural effusions. There is no pneumothorax. The bony thorax appears intact. IMPRESSION: No acute cardiopulmonary process. Reviewed, Interpreted and Dictated by Joe Simmons MD Transcribed by Kaela Easley Authenticated and [facility]
[2023-03-08 14:46] LABS: Coronavirus 19, PCR Not Detected (NotDetected); Influenza A, PCR Not Detected (NotDetected); Influenza B, PCR Not Detected (NotDetected)
[2023-03-08 15:00] VITALS: BP 190/85; PULSE 63; RESP 18; O2SAT 97
[2023-03-08 15:01] VITALS: BP 190/89; PULSE 83; RESP 19; TEMP 36.9; O2SAT 97; BMI 32.5
--- NOTE | 2023-03-08 15:13 | HMH.EDGENADL ---
Discharge Plan Disposition Patient Disposition: Home, Self-Care Condition: Good Prescriptions Prescriptions: No Action amlodipine 10 mg tablet 10 mg PO DAILY 90 Days Patient Comments: metformin 1,000 mg tablet 1,000 mg PO BID 90 Days Patient Comments: lisinopril 10 mg tablet 10 mg PO DAILY levothyroxine 25 mcg tablet 25 mcg PO DAILY Patient Comments: TAKE ONE TABLET BY MOUTH EVERY DAY latanoprost 0.005 % drops 1 drp Eye-Both HS Patient Comments: INSTILL 1 DROP INTO EACH EYE AT BEDTIME brimonidine 0.2 % drops 1 drp ophthalmic (eye) BID Patient Comments: INSTILL 1 DROP INTO AFFECTED EYE(S) TWICE DAILY dorzolamide-timolol 22.3-6.8 mg/mL drops 1 drp Eye-Both BID Patient Comments: INSTILL 1 DROP INTO EACH EYE TWICE DAILY hydrochlorothiazide 25 mg tablet 25 mg PO DAILY Patient Comments: TAKE 1 TABLET BY MOUTH ONCE DAILY NEEDED FOR SWELLING hydroxyzine pamoate 25 mg capsule 25 mg PO TID Patient Comments: TAKE 1 CAPSULE BY MOUTH THREE TIMES DAILY NEEDED fluticasone propionate [Flonase Allergy Relief] 50 mcg/actuation spray,suspension 2 spray intranasal DAILY Qty: 16 3RF Rx Instructions: administer into each nostril pioglitazone 30 mg tablet 30 mg PO DAILY Patient Comments: TAKE 1 TABLET BY MOUTH ONCE DAILY fluoxetine 40 mg capsule 40 mg PO DAILY Patient Comments: TAKE 1 CAPSULE BY MOUTH ONCE DAILY loratadine 10 mg tablet 10 mg PO DAILY Qty: 30 1RF ibuprofen 600 MG tablet 600 mg PO Q6HP PRN (Reason: Mild Pain) Qty: 30 0RF Referrals Follow up/Referrals: Isacc Roberson MD [Primary Care Provider] - See instructions Activity Restrictions/Add. Instructions Additional Instructions/Restrictions: You were evaluated in the emergency department today. Please take Tylenol and ibuprofen at home as needed for symptoms. Follow-up with your primary care provider over the next 3 days for reassessment. Return to the emergency department for new or worsening symptoms, such as significant lightheadedness, worsening headache, chest pain, shortness of breath, or other concerns. Clinical Impressions Clinical Impression: Viral URI with cough Instructions Patient Instructions: DI for Viral Syndrome Discharge ED Provider: Crystal Garduno General Adult HPI General Chief complaint: Upper Respiratory Infection Stated complaint: Headache, dry eyes, achey Time Seen by Provider: 03/08/23 14:35 Mode of Arrival: Ambulatory Source of Information: Patient Limitations: No Limitations Description of Symptoms (Recalled from ER Triage Doc. by RN): 82 yo F presents to ED with c/o covid exposure. pt reports headache, dry eyes, body aches, cough. pt reports that her sister was diagnosed with covid on wednesday and pt has been having symptoms since exposure. History of Present Illness HPI narrative: This patient is an 82-year-old female with a history of migraines, depression, osteoarthritis, hypertension, diabetes, and vertigo presenting to the emergency department for evaluation with concern for intermittent headaches, dry eyes, body aches, and cough for the last 3 days. She states that she was with her sister, who was diagnosed with COVID on Wednesday. She is concerned that she may have contracted COVID, as this feels similar to the last time that she had it last year. She denies any recent fevers, vision changes, numbness, tingling, chest pain, shortness of breath, abdominal pain, nausea, vomiting, changes in bowel movements, dysuria, rashes, or swelling. She states that her headache is mild and resolves with Aleve. She is currently feeling okay, she just wanted to get checked out because she was concerned that she had been exposed to COVID. She thought that if not COVID that it could be allergies, she does have a history of allergic rhinitis. Related Data Home Medications Medic
--- NOTE | 2023-03-08 15:23 | ECG_ITS ---
APPROVED REPORT Exam: Resting ECG HR:70 bpm ECG Measurements Heart Rate 70 AXES PA 160 P 56 QRSd 93 QRS 16 QT 385 T 48 QTc 407 Conclusion SINUS RHYTHM WITH SINUS ARRHYTHMIA POSSIBLE LEFT ATRIAL ENLARGEMENT [-0.1mV P-WAVE IN V1/V2] BORDERLINE ECG UNCONFIRMED REPORT Electronically signed by : Bryn Mercedes MD 03/09/2023 19:44:14
[2023-03-08 15:45] VITALS: BP 165/85; PULSE 80; RESP 18; TEMP 36.7; O2SAT 98
== END 2023-03-08 16:00 | disposition home or self-care (01) ==
PROVIDERS: Emergency Provider Emergency Medicine; PCP Family Medicine
DX: J06.9 Acute upper respiratory infection, unspecified (principal); R51.9 Headache, unspecified; E11.9 Type 2 diabetes mellitus without complications; I10 Essential (primary) hypertension; F32.A Depression, unspecified; E78.5 Hyperlipidemia, unspecified; E03.9 Hypothyroidism, unspecified
CPT/HCPCS: 71046; 87636; 93005; 99284

== ENCOUNTER → 2023-03-24 14:31 | Outpatient (CLI) | payer MEDICARE, OTHER, SELFPAY ==
[2023-03-24 16:24] LABS: Creatine Kinase 57 U/L (30-135)
== END ==
PROVIDERS: PCP Family Medicine; Visit Provider Specialist
DX: R53.1 Weakness (principal)
CPT/HCPCS: 36415; 82550

== ENCOUNTER → 2023-04-02 11:34 | Outpatient (CLI) | payer MEDICARE, OTHER, SELFPAY ==
--- NOTE | 2023-04-02 12:02 | XR_ITS ---
FINAL REPORT CLINICAL HISTORY: Gait ataxia COMPARISON: None FINDINGS: CERVICAL SPINE 7 views were obtained including flexion and extension views. There is no acute fracture. There is mild anterolisthesis of C6 on C7. There is no significant change with flexion or extension. No other abnormal movement is seen. There is mild and moderate degenerative change. There is mild right C5-6 neuroforaminal narrowing. IMPRESSION: Mild and moderate degenerative change. No significant change with flexion or extension. Reviewed, Interpreted and Dictated by Emiliano Rebolledo III, MD Transcribed by Kaela Easley Authenticated and [facility]
[2023-04-02 12:38] LABS: Anion Gap 16.3 mEq/L (5-15); Blood Urea Nitrogen 15 mg/dl (7-17); Calcium 8.9 mg/dl (8.4-10.2); Carbon Dioxide 21 mmol/L (22.0-30.0); Chloride 104 mmol/L (98-107); Estimated Glomerular Filt Rate 60 ml/min (>60); GFR (African American) 73 ML/MIN (>60); Glucose 131 mg/dl (74-100); Potassium 4.3 mmoL/L (3.5-5.1); Sodium 137 mmol/L (136-145)
[2023-04-02 12:53] LABS: Free T4 (Free Thyroxine) 1.13 ng/dl (0.78-2.19)
[2023-04-02 13:09] LABS: Thyroid Stimulating Hormone 1.49 uIU/mL (0.465-4.68)
[2023-04-02 13:45] LABS: Vitamin B12 849 pg/mL (239-931)
== END ==
PROVIDERS: PCP Family Medicine; Visit Provider Specialist
DX: R26.0 Ataxic gait; R29.2 Abnormal reflex; R29.6 Repeated falls; Z85.3 Personal history of malignant neoplasm of breast; Z85.850 Personal history of malignant neoplasm of thyroid; E11.69 Type 2 diabetes mellitus with other specified complication; Z79.84 Long term (current) use of oral hypoglycemic drugs
CPT/HCPCS: 36415; 72052; 80048; 82607; 82746; 84439; 84443

== ENCOUNTER → 2023-04-07 12:54 | Outpatient (CLI) | payer MEDICARE, OTHER, SELFPAY ==
--- NOTE | 2023-04-07 12:55 | MR_ITS ---
FINAL REPORT CLINICAL HISTORY: UNSTEADY X 1 YEAR 14 ML PROHANCE GIVEN FINDINGS: Multiplanar MR imaging of the brain was performed without and with contrast. There are small scattered foci of increased signal in the deep white matter bilaterally. There is moderate confluent abnormal signal in the periventricular white matter. There is no evidence of intracranial hemorrhage or mass. No abnormal extra-axial fluid collection is seen. The ventricular size is within normal limits. There is no evidence of shift of the midline structures. The posterior fossa and brainstem have an unremarkable appearance. No area of abnormal restricted diffusion is identified. No abnormal contrast enhancement is seen. Normal major vessel vascular flow voids are noted. There are mild chronic changes of right maxillary sinusitis. IMPRESSION: Changes of chronic microvascular ischemia. Reviewed, Interpreted and Dictated by Joe Simmons MD Transcribed by Janessa Taylor Authenticated and [facility]
== END ==
PROVIDERS: PCP Family Medicine; Visit Provider Specialist
DX: R26.0 Ataxic gait (principal); R29.2 Abnormal reflex; R29.6 Repeated falls; Z85.3 Personal history of malignant neoplasm of breast
CPT/HCPCS: 70553; A9576

== ENCOUNTER → 2023-04-08 09:55 | Outpatient (POV) | payer MEDICARE, OTHER, SELFPAY | PROVIDERS: Visit Provider Specialist/Technologist | DX: Z00.00 Encounter for general adult medical examination without abnormal findings (principal) ==

== ENCOUNTER → 2023-04-30 14:57 | Outpatient (CLI) | payer MEDICARE, OTHER, SELFPAY ==
--- NOTE | 2023-04-30 14:57 | MR_ITS ---
FINAL REPORT CLINICAL HISTORY: Ataxia, frequent falls FINDINGS: Multiplanar MR imaging of the cervical spine was performed without contrast. On the sagittal T2-weighted images, disc degeneration is seen throughout. There is mild anterolisthesis of C3 on 4 and C6 on 7. There is no evidence of fracture. The cervical spinal cord has an unremarkable appearance without evidence of mass, edema or syrinx. No significant canal stenosis is identified. The cervicomedullary junction is normal. C2-3: There is no significant canal stenosis or neural foraminal narrowing. C3-4: An annular bulge is present with mild left neural foraminal narrowing. C4-5: An annular bulge and uncovertebral osteophytes are present. There is moderate bilateral neural foraminal narrowing. C5-6: An annular bulge and uncovertebral osteophytes are present. There is severe right and moderate left neural foraminal narrowing. C6-7: An annular bulge is present with moderate right neural foraminal narrowing. C7-T1: There is no significant canal stenosis or neural foraminal narrowing. IMPRESSION: Multilevel degenerative disc disease and spondylosis. Reviewed, Interpreted and Dictated by Emiliano Rebolledo III, MD Transcribed by Janessa Taylor Authenticated and [facility]
== END ==
PROVIDERS: PCP Family Medicine; Visit Provider Specialist
DX: R26.0 Ataxic gait (principal); R29.2 Abnormal reflex; R29.6 Repeated falls; Z85.3 Personal history of malignant neoplasm of breast
CPT/HCPCS: 72141; 76376

== ENCOUNTER 2023-05-07 12:23 | Day surgery (SDC) | payer MEDICARE, OTHER, SELFPAY ==
[2023-05-07 12:57] VITALS: BP 174/80; PULSE 86; RESP 20; TEMP 36.4; O2SAT 97; BMI 32.5
[2023-05-07 14:38] VITALS: BP 168/58; PULSE 88; RESP 18; O2SAT 98
[2023-05-07 14:39] VITALS: BP 168/58; PULSE 88; RESP 18; O2SAT 98
[2023-05-07 15:20] VITALS: BP 162/82; PULSE 77; RESP 20
[2023-05-07 16:41] LABS: Appearance,CSF Clear (Clear)
[2023-05-07 16:42] LABS: Volume,CSF 37 mL
[2023-05-07 16:43] LABS: Red Blood Cell,CSF 150 cells/uL (0); White Blood Cell,CSF 4 cells/uL (0-5)
[2023-05-07 16:48] LABS: Glucose,CSF 60 mg/dl (40-70)
[2023-05-07 16:49] LABS: Appearance,CSF Clear (Clear); Volume,CSF 27 mL
[2023-05-07 16:50] LABS: Red Blood Cell,CSF 295 cells/uL (0); White Blood Cell,CSF 26 cells/uL (0-5)
--- NOTE | 2023-05-07 16:54 | EXP.PAIN.PRO ---
Procedure Date: 05/07/23 Time: 16:54 Anesthesiologist:: Bryan Gonzalez MD Complications:: None Pre-procedure Diagnosis:: Ataxia, gait disturbance and headache Post-procedure Diagnosis:: Same Indications for Procedure:: This patient is a pleasant 82-year-old white female who was referred by Dr. Barron with ataxia gait disturbance and headaches with frequent falls. She is wanting a high-volume lumbar puncture to evaluate CSF and she will see her next week. We will get opening and closing pressures. This is a diagnostic lumbar puncture. Procedure Details:: Informed consent was obtained risk and benefits of the procedure were explained to the patient. Patient was taken to the procedure room she is placed in the left lateral decubitus position. She was prepped and draped in sterile fashion. C-arm fluoroscopy was used in a AP and lateral view to view the lumbar spine. The skin and subcutaneous tissues were anesthetized and lidocaine. A 20-gauge spinal needle was inserted and advanced into the L3-L4 interspace. We tried multiple times at L4-5 and L5-S1 without accessing the intrathecal space. We were able to access it at L3-L4. Opening pressures were 15 cm of water. We were able to obtain approximately 55 mL of clear CSF. Closing pressures were 2 cm of water. The needle was removed Band-Aid was placed patient was taken recovery in stable condition. The patient tolerated the procedure well with no complications. Plan and Disposition:: Patient was discharged home neurologic intact with minimal pain. We did advise her on conservative treatments for postdural puncture headache including caffeine, fluids and rest. Again opening pressures were 15 cm of water. Closing pressure was 2 cm of water. Were able to obtain 55 mL of clear CSF.
[2023-05-07 18:52] LABS: Mononuclear WBCs,CSF 100 %; Polynuclear WBCs,CSF 0 %
[2023-05-07 23:59] LABS: Mononuclear WBCs,CSF 0 %; Polynuclear WBCs,CSF 0 %
== END 2023-05-07 15:20 | disposition home or self-care (01) ==
LOC: SC.PAINP 12:24
PROVIDERS: Specialist; PCP Family Medicine; Visit Provider Anesthesiology
DX: R27.0 Ataxia, unspecified (principal); R51.9 Headache, unspecified; R29.6 Repeated falls
CPT/HCPCS: 62328; 82945; 84155; 87070; 87205; 89051

== ENCOUNTER → 2023-06-18 15:38 | Outpatient (CLI) | payer MEDICARE, OTHER, SELFPAY ==
--- NOTE | 2023-06-18 15:47 | XR_ITS ---
FINAL REPORT CLINICAL HISTORY: INJURY OF BACK fall x 2 weeks ago FINDINGS: LUMBAR SPINE Five views demonstrate no acute fracture. There is moderate disc space narrowing at T12-L1 and L2-3. Dense facet sclerosis is seen in the lower lumbar spine. There is no malalignment. IMPRESSION: Degenerative changes as above. Reviewed, Interpreted and Dictated by Joe Simmons MD Transcribed by Janessa Taylor Authenticated and [facility]
--- NOTE | 2023-06-18 15:47 | XR_ITS ---
FINAL REPORT CLINICAL HISTORY: INJURY TO LEFT HIP fall x 2 weeks FINDINGS: Left hip Three views were obtained. There is no acute fracture or dislocation. There is moderate hip joint space narrowing bilaterally. No soft tissue abnormality is identified. IMPRESSION: Moderate degenerative changes. Reviewed, Interpreted and Dictated by Joe Simmons MD Transcribed by Janessa Taylor Authenticated and . [facility]
== END ==
PROVIDERS: PCP Family Medicine; Visit Provider Physician Assistant
DX: M25.552 Pain in left hip (principal); S79.912A Unspecified injury of left hip, initial encounter; M54.50 Low back pain, unspecified
CPT/HCPCS: 72110; 73502

== ENCOUNTER 2023-07-16 15:56 | Emergency (ER) | payer MEDICARE, OTHER, SELFPAY ==
--- NOTE | 2023-07-16 16:45 | ED_ITS ---
Discharge Plan Disposition Patient Disposition: Home, Self-Care Condition: Good Prescriptions Prescriptions: No Action amlodipine 10 mg tablet 10 mg PO DAILY 90 Days Patient Comments: metformin 1,000 mg tablet 1,000 mg PO BID 90 Days Patient Comments: lisinopril 10 mg tablet 10 mg PO DAILY levothyroxine 25 mcg tablet 25 mcg PO DAILY Patient Comments: TAKE ONE TABLET BY MOUTH EVERY DAY latanoprost 0.005 % drops 1 drp Eye-Both Patient Comments: INSTILL 1 DROP INTO EACH EYE AT BEDTIME fluoxetine 40 mg capsule 40 mg PO DAILY Patient Comments: TAKE 1 CAPSULE BY MOUTH ONCE DAILY Referrals Follow up/Referrals: Isacc Roberson MD [Primary Care Provider] - See instructions Activity Restrictions/Add. Instructions Additional Instructions/Restrictions: Go home and rest. Try to rest for the next few days. No heavy lifting. No twisting. Continue the medications that you were prescibed by you primary physician, but don't take the dose of prednisone this evening if you are taking it twice per day. Follow up with your regular doctor. GO TO THE ER FOR ANY WORSENING SYMPTOMS OR CONCERN, ESPECIALLY BOWEL OR BLADDER ISSUES, SADDLE AREA NUMBNESS, FEVER, ETC Clinical Impressions Clinical Impression: Low back pain Instructions Patient Instructions: Low Back Pain, DI for Low Back Pain, DI for Sciatica, Ketorolac Injection, Dexamethasone Injection Discharge ED Provider: Eduardo Carrillo [facility] General Stated complaint: left hip pain, no accident Time Seen by Provider: 07/16/23 16:45 History of Present Illness Provider Complaint: She states that she has continued to have low back pain that radiates down her right leg. Her symptoms began several days ago. She saw her pcp yesterday. She was started on prednisone yesterday, but she states that it has not helped so far. She request a steroid and toradol shot today. Related Data Home Medications Medication Instructions Recorded Confirmed amlodipine 10 mg tablet 10 mg PO DAILY Hypertension 90 days 08/17/17 07/16/23 metformin 1,000 mg tablet 1,000 mg PO BID Diabetes 90 days 08/17/17 07/16/23 lisinopril 10 mg tablet 10 mg PO DAILY Hypertension 11/03/18 07/16/23 fluoxetine 40 mg capsule 40 mg PO DAILY 08/15/21 07/16/23 latanoprost 0.005 % eye drops 1 drp Eye-Both HS 02/24/23 07/16/23 levothyroxine 25 mcg tablet 25 mcg PO DAILY 02/24/23 07/16/23 Allergies Allergy/AdvReac Type Severity Reaction Status Date / Time Sulfa (Sulfonamide Allergy Mild Hives Verified 06/01/23 14:26 Antibiotics) [SULFA (SULFONAMIDE ANTIBIOTICS)] trimethoprim [From BACTRIM] Allergy Mild Hives Verified 06/01/23 14:26 [facility] Disclaimer: The information contained in this section may have been updated after the patient was seen, as this information can be updated by other users. Medical History Bilateral tinnitus Hearing loss Bilateral hearing aids Hyperlipidemia Hypertension Hypothyroidism Surgical History History of total left knee replacement Family History Other Cancer Coronary artery disease Social History Smoking Status: Never smoker second hand exposure: Yes alcohol intake: never counseling provided: none current occupational status: retired Travel in the last 8 weeks: None household members: none housing: house education level: high school current occupational exposures/hazards: No caffeine: No ROS Obtained: Yes All systems reviewed & no additional complaints except as documented Constitutional Constitutional: Denies chills and Denies fever(s) Eyes Eyes: Denies eye discharge ENT Ears, Nose, Mouth, and Throat: Denies disequilibrium, Denies dizziness, Denies otalgia and Denies sore throat Cardiovascular Cardiovascular: Denies chest pain Respiratory Respiratory: Denies shortness of breath, Denies chest congestion, Denies cough, Denies stridor and Denies wheezing Gastrointestinal Gastrointestingal: Denies nausea or vomiting Musculoskeletal Musculoskeletal: Reports system reviewed and no additional complaints, except as documented and Denies arthralgias Integumentary/Breasts Skin/Breast: Denies rash Neurologic Neurologic: Reports as per HPI, Denies disequilibrium, Denies dizziness, Denies focal weakness and Denies paresthesias Allergic/Immunologic Allergic/Immunologic: Denies wheezing Physical Exam General General appearance: alert and in no apparent distress Head Head exam: atraumatic, normocephalic and normal inspection Eye Eye exam: Present normal appearance, PERRL and EOMI ENT ENT exam: Present normal exam, normal oropharynx, mucous membranes moist, TM's normal bilaterally and normal external ear exam Neck Neck exam: Present normal inspection, full ROM and trachea midline; Absent meningismus or lymphadenopathy Chest Chest inspection: Present normal inspection and symmetric chest wall rise; Absent tenderness Respiratory Respiratory exam: Present normal lung sounds bilaterally; Absent respiratory distress Cardiovascular Cardiovascular exam: Present regular rate and normal rhythm; Absent JVD Abdominal Exam Abdominal exam: Present soft and normal bowel sounds; Absent distention, tenderness or guarding Extremities Exam Extremities exam: Present normal capillary refill; Absent calf tenderness Expanded Lower Extremity Exam Left: Hip/Pelvis exam: Present normal inspection, full ROM and pelvis stable; Absent tenderness, swelling, ecchymosis, deformity, dislocation, external rotation, internal rotation, shortening of leg, pain on hip/pelvis palpation, hip pain on leg movement, erythema, crepitus, laceration or abrasion Upper leg exam: Present normal inspection and full ROM; Absent tenderness Knee exam: Present normal inspection and full ROM; Absent tenderness Lower leg exam: Present normal inspection and full ROM; Absent tenderness Ankle exam: Present normal inspection and full ROM; Absent tenderness Foot/toe exam: Present normal inspection and full ROM; Absent tenderness Neurovascular/Tendon exam: Present normal capillary refill and normal fine/light touch; Absent pulse deficit, motor deficit, sensory deficit, tendon deficit or extremity cold to touch Gait: observed and normal Back Exam Back exam: Present normal inspection; Absent tenderness, CVA tenderness (R) or CVA tenderness (L) Neurological Exam Neurological exam: Present alert, oriented X3, CN II-XII intact, normal gait and reflexes normal; Absent motor sensory deficit Expanded Neurological Exam Cranial nerves: Normal: EOM function (II, III, IV, ), facial sensation (V), facial palsy (VII), gag reflex (IX), spinal accessory function (XI) and tongue deviation (XII) Cerebellar function: normal gait Motor strength - LUE: 5/5 Motor strength - RUE: 5/5 Motor strength - LLE: 5/5 Motor strength - RLE: 5/5 Sensory exam upper extremity: Normal: light touch and 2 point discrimination Sensory exam lower extremity: Normal: light touch and 2 point discrimination DTR: 2+: biceps (L), biceps (R), patellar (L), patellar (R), Achilles tendon (L) and Achilles tendon (R) Spinal cord function: Absent saddle anesthesia Psychiatric Psychiatric exam: Present normal affect and normal mood Skin Skin exam: Present warm, dry, intact and normal color Lymphatic Lymphatic Findings: no adenopathy Medical Decision Making Medical Records Medical records reviewed: No I reviewed the patient's medical records. Alessandro Inquiry Pt receiving controlled substance: No
[2023-07-16 16:50] VITALS: BP 187/90; PULSE 99; RESP 21; TEMP 36.6; O2SAT 96; BMI 33.4
[2023-07-16] MEDS: KETOROLAC 60MG/2ML VIAL 30 MG IM (17:20)
[2023-07-16] MEDS: DEXAMETHASONE 4MG/ML 1ML VIAL 8 MG IM (17:20)
[2023-07-16 17:29] VITALS: BP 187/90; PULSE 99; RESP 21; TEMP 36.6; O2SAT 96
== END 2023-07-16 17:33 | disposition home or self-care (01) ==
PROVIDERS: Emergency Provider Nurse Practitioner Family; PCP Family Medicine
DX: M54.50 Low back pain, unspecified (principal); E78.5 Hyperlipidemia, unspecified; E03.9 Hypothyroidism, unspecified; I10 Essential (primary) hypertension
CPT/HCPCS: 96372; 99212; 99214; G0463

== ENCOUNTER 2023-07-27 14:00 | Outpatient (CLI) | payer MEDICARE, SELFPAY ==
--- NOTE | 2023-07-27 14:08 | XR_ITS ---
FINAL REPORT CLINICAL HISTORY: PAIN RT HIP,LOW BACK Patient stated cramping in low back and right hip for 2 weeks. COMPARISON: None FINDINGS: LUMBAR SPINE INCLUDING FLEXION/EXTENSION FILMS: There is moderate and severe degenerative change in the lumbar spine, with a mild left curvature. Multilevel osteophytes are present as well as facet osteoarthropathy, particularly in the lower lumbar spine. There is no significant motion on flexion and extension views. Vascular calcifications are present. IMPRESSION: Moderate and severe degenerative change as described. No significant motion is noted on flexion and extension views. Reviewed, Interpreted and Dictated by Emiliano Rebolledo III, MD Transcribed by Gin Berman Authenticated and [facility]
== END 2023-07-27 23:59 ==
PROVIDERS: PCP Family Medicine; Visit Provider Specialist
DX: M54.50 Low back pain, unspecified (principal); M25.551 Pain in right hip
CPT/HCPCS: 72114

== ENCOUNTER 2023-08-18 16:00 | Outpatient (RCR) | payer MEDICARE, OTHER, SELFPAY | END 2023-08-18 17:00 | disposition home or self-care (01) | LOC: PT 16:00 | PROVIDERS: PCP Family Medicine; Visit Provider Neurological Surgery | DX: G91.2 (Idiopathic) normal pressure hydrocephalus (principal); R26.89 Other abnormalities of gait and mobility | CPT/HCPCS: 97110; 97112; 97116; 97163; 97164; 97530 ==

== ENCOUNTER 2023-08-20 11:33 | Emergency (ER) | payer MEDICARE, SELFPAY ==
[2023-08-20 11:40] VITALS: BP 141/71; PULSE 130; RESP 20; TEMP 36.9; O2SAT 95; BMI 26.9
--- NOTE | 2023-08-20 11:55 | EXP.UTC ---
Discharge Plan Disposition Patient Disposition: Home, Self-Care Condition: Good Prescriptions Prescriptions: New valacyclovir 1 gram tablet 1,000 mg PO Q8H 7 Days Qty: 21 0RF No Action amlodipine 10 mg tablet 10 mg PO DAILY 90 Days Patient Comments: metformin 1,000 mg tablet 1,000 mg PO BID 90 Days Patient Comments: lisinopril 10 mg tablet 10 mg PO DAILY levothyroxine 25 mcg tablet 25 mcg PO DAILY Patient Comments: TAKE ONE TABLET BY MOUTH EVERY DAY latanoprost 0.005 % drops 1 drp Eye-Both HS Patient Comments: INSTILL 1 DROP INTO EACH EYE AT BEDTIME meloxicam 15 mg tablet 15 mg PO DAILY Patient Comments: TAKE ONE TABLET BY MOUTH EVERY DAY --TAKE WITH FOOD-- brimonidine 0.2 % drops 1 drp Eye-Both .COMPLEX Patient Comments: INSTILL 1 DROP INTO AFFECTED EYE(S) TWICE DAILY Rx Instructions: 1 drp Both Eyes bid; pioglitazone 30 mg tablet 30 mg PO DAILY Patient Comments: TAKE ONE TABLET BY MOUTH EVERY DAY Lumigan 0.01 % drops 1 drp ophthalmic (eye) DAILY fluoxetine 40 mg capsule 40 mg PO DAILY Patient Comments: TAKE 1 CAPSULE BY MOUTH ONCE DAILY Referrals Follow up/Referrals: Isacc Roberson MD [Primary Care Provider] - See instructions Activity Restrictions/Add. Instructions Additional Instructions/Restrictions: Go straight to [facility] here in [place] for evaluation Further care per [facility] FOllow up with your Family Doctor if no improvement or Immediately if any worsening of symptoms GO straight to Emergency Room if any loss of vision Clinical Impressions Clinical Impression: Shingles Qualifiers: Herpes zoster complications: unspecified herpes zoster complication Qualified Code(s): B02.8 - Zoster with other complications Instructions Patient Instructions: DI for Shingles, Valacyclovir Discharge ED Provider: Gayathri Bower [facility] General Stated complaint: left eye pain Mode of Arrival: Ambulatory Source of Information: Patient Limitations: No Limitations Time Seen by Provider: 08/20/23 11:55 Description of Symptoms (Recalled from Triage Doc. by RN): PATIENT C/O RIGHT SIDED HEAD AND NECK PAIN THAT STARTED WEDNESDAY MORNING. SHE ALSO STATES SHE HAS BEEN FEELING UNSTEADY SINCE THE PAIN STARTED. SHE RECENTLY SAW HER EYE DOCTOR FOR AN INFECTION HEENT Symptoms (Recalled from RN notes): Yes Resp Symptoms (Recalled from RN notes): No Skin Symptoms (Recalled from RN notes): No MS Symptoms (Recalled from RN notes): No Functional Status (Recalled from RN notes): WNL History of Present Illness Provider Complaint: Patient states that she started with pain on the right side of her head and was having redness and irritation of her right eye States that she seen her eye doctor and they thought it was bacteria infection in her eye and give her some eye drops States that the pain on the top of head has continued and even the wind blowing in her hair hurts states that she has blister like areas on her scalp thinks it is from hair dye but it is just on the right side of her head and now moving down her forehead and making her skin hurt so she came in to get Denies vision changes Related Data Home Medications Medication Instructions Recorded Confirmed amlodipine 10 mg tablet 10 mg PO DAILY Hypertension 90 days 08/17/17 08/10/23 metformin 1,000 mg tablet 1,000 mg PO BID Diabetes 90 days 08/17/17 08/10/23 lisinopril 10 mg tablet 10 mg PO DAILY Hypertension 11/03/18 08/10/23 fluoxetine 40 mg capsule 40 mg PO DAILY 08/15/21 08/10/23 latanoprost 0.005 % eye drops 1 drp Eye-Both HS 02/24/23 08/10/23 levothyroxine 25 mcg tablet 25 mcg PO DAILY 02/24/23 08/10/23 bimatoprost 0.01 % eye drops 1 drp ophthalmic (eye) DAILY 07/27/23 08/10/23 (Lumigan) brimonidine 0.2 % eye drops 1 drp Eye-Both .COMPLEX 07/27/23 08/10/23 meloxicam 15 mg tablet 15 mg PO DAILY 07/27/23 08/10/23 pioglitazone 30 mg tablet 30 mg PO DAILY 07/27/23 08/10/23 Previous Rx's Medication Instructions Recorded valacyclovir 1 gram tablet 1,000 mg PO Q8H 7 days #21 tabs 08/20/23 Allergies Allergy/AdvReac Type Severity Reaction Status Date / Time Sulfa (Sulfonamide Allergy Mild Hives Verified 08/10/23 13:35 Antibiotics) [SULFA (SULFONAMIDE ANTIBIOTICS)] trimethoprim [From BACTRIM] Allergy Mild Hives Verified 08/10/23 13:35 Worker's Comp Is this a Worker's Comp case?: No [facility] Disclaimer: The information contained in this section may have been updated after the patient was seen, as this information can be updated by other users. Medical History Acute hip pain Bilateral tinnitus Hearing loss Bilateral hearing aids Hyperlipidemia Hypertension Hypothyroidism Surgical History History of total left knee replacement Family History Other Cancer Coronary artery disease Social History Smoking Status: Never smoker second hand exposure: Yes alcohol intake: never counseling provided: none current occupational status: retired Travel in the last 8 weeks: None household members: none housing: house education level: high school current occupational exposures/hazards: No caffeine: No ROS Obtained: Yes All systems reviewed & no additional complaints except as documented and Yes Systems reviewed as appropriate & no additional complaints except as documented Constitutional Constitutional: Reports system reviewed and no additional complaints, except as documented and Reports as per HPI Comments: pain and blisters on right side of head thinks she burned herself with hair dye that is moving down on her forehead and above her right eye Eyes Eyes: Reports system reviewed and no additional complaints, except as documented and Reports as per HPI Comments: right eye redness ENT Ears, Nose, Mouth, and Throat: Reports system reviewed and no additional complaints, except as documented and Reports as per HPI Cardiovascular Cardiovascular: Reports system reviewed and no additional complaints, except as documented and Reports as per HPI Respiratory Respiratory: Reports system reviewed and no additional complaints, except as documented and Reports as per HPI Gastrointestinal Gastrointestingal: Reports system reviewed and no additional complaints, except as documented and as per HPI Integumentary/Breasts Skin/Breast: Reports system reviewed and no additional complaints, except as documented and Reports as per HPI Comments: painful blister like lesions on right side of head that is spreading down her forehead and above her right eye Neurologic Neurologic: Reports system reviewed and no additional complaints, except as documented and Reports as per HPI Physical Exam General General appearance: alert and in no apparent distress Eye Eye exam: Present other (small blister like lesion noted on eyelid area mild redness around eye) Respiratory Respiratory exam: Present normal lung sounds bilaterally; Absent respiratory distress or wheezes Cardiovascular Cardiovascular exam: Present regular rate, normal rhythm and tachycardia (reports that she is nevous) Neurological Exam Neurological exam: Present alert, oriented X3 and normal gait Skin Skin exam: Present rash and other (blister like rash noted on right side of scalp that extends on her forehead, eyebrow area and appears to have lesion on eyelid appears like shingles) Medical Decision Making Alessandro Inquiry Pt receiving controlled substance: No Alessandro was queried for this patient: No Vital Signs: 08/20/23 11:40 Temperature 98.5 F Temperature Source Oral Pulse Rate [Right Brachial] 130 H Respiratory Rate 20 Blood Pressure [Right Arm] 141/71 H Blood Pressure Mean [Right Arm] 94 Blood Pressure Source [Right Arm] Automatic Cuff Blood Pressure Position [Right Arm] Sitting 02 Sat by Pulse Oximetry 95 Oxygen Delivery Method Room Air Medical Decision Narrative: Rash on scalp that extended down on forehead and appears to have some lesions in right eyebrow and on right eyelid area Discussed with patient and recommended that she go to Emergency Room for further evaluation and examination due to concern of shingles inside the eye area Patient declined and said that she would follow up with her eye doctor Patient educated that ocular shingles and shingles in and around eye area can lead to blindness if not correctly treated and dx and she verbalized understanding and still declined going to Emergency Room Called her Eye Doctor office and they agreed to see her now after leaving the [facility] and she did agree to that will start her on Valacyclovir per pharmacy at 1gram TID x 7 days and see her Eye Doctor and they can do an exam and give her more drops etc if they see fit, Patient educated that if she starts having any vision changes or disruption of vision worsening of pain in rash or if it spreads more down on her eye area go straight to Emergency Room and she agreed
--- NOTE | 2023-08-20 12:18 | P.CONPHA_ITS ---
Pharmacy Consult Date: 08/20/23 Time: 12:18 Referring provider: DR. TRAN Reason for Consult:: VANCOMYCIN DOSING Allergies Allergy/AdvReac Type Severity Reaction Status Date / Time Sulfa (Sulfonamide Allergy Mild Hives Verified 08/10/23 13:35 Antibiotics) [SULFA (SULFONAMIDE ANTIBIOTICS)] trimethoprim [From BACTRIM] Allergy Mild Hives Verified 08/10/23 13:35 Home Medications Medication Instructions Recorded Confirmed Type amlodipine 10 mg tablet 10 mg PO DAILY Hypertension 90 days 08/17/17 08/10/23 History metformin 1,000 mg tablet 1,000 mg PO BID Diabetes 90 days 08/17/17 08/10/23 History lisinopril 10 mg tablet 10 mg PO DAILY Hypertension 11/03/18 08/10/23 History fluoxetine 40 mg capsule 40 mg PO DAILY 08/15/21 08/10/23 History latanoprost 0.005 % eye drops 1 drp Eye-Both HS 02/24/23 08/10/23 History levothyroxine 25 mcg tablet 25 mcg PO DAILY 02/24/23 08/10/23 History bimatoprost 0.01 % eye drops 1 drp ophthalmic (eye) DAILY 07/27/23 08/10/23 History (Lumigan) brimonidine 0.2 % eye drops 1 drp Eye-Both .COMPLEX 07/27/23 08/10/23 History meloxicam 15 mg tablet 15 mg PO DAILY 07/27/23 08/10/23 History pioglitazone 30 mg tablet 30 mg PO DAILY 07/27/23 08/10/23 History valacyclovir 1 gram tablet 1,000 mg PO Q8H 7 days #21 tabs 08/20/23 Rx New Prescriptions to Start Prescriptions: valacyclovir Gayathri Bower Height: 1.63 m Weight: 71.214 kg Laboratory Results:: N/A Medical History: Medical History (Updated 07/27/23 @ 13:41 by Yudith Barron MD) Acute hip pain Bilateral tinnitus Hearing loss Hyperlipidemia Hypertension Hypothyroidism Assessment and Plan Assessment and plan all Dx Assessment and Plan for all problems:: Pharmacokinetic dosing service Objective: Patient: Floor: Age: 34 yo Serum creatinine: 0.90 mg/dL Height: 73.0 Inches Weight (kg): 102.1 Assessment: IBW (kg): 79.90 Dosing wt(kg): 102.1 Estimated Creatinine clearance (ml/min): 130 Clearance limited to 130 m l/min to reduce risk of overdosing. CRCL method: Cockcroft and Gault using ibw(default). Drug selected: Vancomycin Loading dose (mg): Vd (liters): 81.7 (factor used: 0.8 L/kg) Abdoulaye (hr-1): 0.112 Half life (hrs): 6.19 CLvanco=?? 9.150 L/hr Recommended dose: 1750 mg Interval: 8 hrs Infusion time (hrs): 2.0 Predicted peak (mcg/mL): 32.4 Predicted trough (mcg/mL): 16.55 Total body weight is being used for vancomycin dosing. Recommendations: Give Vancomycin 1750 mg q 8 hrs with an expected Cpeak of 32.4 mcg/ml and an expected Ctrough of 16.55 mcg/ml AUC 0-24 /LASHELL Data: LASHELL 0.5 mcg/mL:?? AUC/LASHELL:? 1147.5 LASHELL 1.0 mcg/mL:?? AUC/LASHELL:? 573.8 --------- LASHELL 1.5 mcg/mL:?? AUC/LASHELL:? 382.5 LASHELL 2.0 mcg/mL:?? AUC/LASHELL:? 286.9 Thank you for the consult, will continue to follow. -BLAKE NOLAND, ARISD
[2023-08-20 12:20] VITALS: BP 141/71; PULSE 130; RESP 20; TEMP 36.9; O2SAT 95
== END 2023-08-20 12:24 | disposition home or self-care (01) ==
PROVIDERS: Emergency Provider Nurse Practitioner; PCP Family Medicine
DX: B02.8 Zoster with other complications (principal); H57.12 Ocular pain, left eye; I10 Essential (primary) hypertension; E78.5 Hyperlipidemia, unspecified; E03.9 Hypothyroidism, unspecified
CPT/HCPCS: 99212; 99214; G0463

== ENCOUNTER 2023-08-29 07:59 | Inpatient (IN) | payer MEDICARE, SELFPAY ==
[2023-08-29] VITALS (7 sets, daily range): BP systolic 164–210; BP diastolic 80–100; PULSE 93–103; RESP 16–20; TEMP 36.4–36.7; O2SAT 94–98; BMI 34.1; BMI 25.8
--- NOTE | 2023-08-29 08:11 | PC.NURSE ---
Dr. Jackson at [facility] for pt eval
--- NOTE | 2023-08-29 08:18 | CT_ITS ---
PROCEDURE INFORMATION: Exam: CT Head Without Contrast Exam date and time: 08/29/2023 9:28 AM Age: 82 years old Clinical indication: Altered mental status/memory loss and speech disturbance; Confusion or disorientation; Slurred speech; Additional info: AMS, slurred speach, recent shingles TECHNIQUE: Imaging protocol: Computed tomography of the head without contrast. Radiation optimization: All CT scans at this facility use at least one of these dose optimization techniques: automated exposure control; mA and/or kV adjustment per patient size (includes targeted exams where dose is matched to clinical indication); or iterative reconstruction. COMPARISON: MR HEAD/BRAIN WO/W CON 04/07/2023 1:02 PM FINDINGS: Brain: There is no mass effect, midline shift, acute hemorrhage, extra-axial fluid collection or acute lobar infarct. There is fairly extensive hemispheric white matter hypodensity most likely representing chronic microvascular ischemic change. Cerebral ventricles: No ventriculomegaly. Paranasal sinuses: A retention cyst or polyp is noted in the right maxillary antrum. Mastoid air cells: Visualized mastoid air cells are well aerated. Orbital cavities: The patient is post left cataract surgery. Bones/joints: Unremarkable. No acute fracture. Soft tissues: Unremarkable. IMPRESSION: No acute intracranial process.
--- NOTE | 2023-08-29 08:18 | XR_ITS ---
PROCEDURE INFORMATION: Exam: XR Chest Exam date and time: 08/29/2023 8:26 AM Age: 82 years old Clinical indication: Dyspnea TECHNIQUE: Imaging protocol: Radiologic exam of the chest. Views: 1 view. COMPARISON: CR XR CHEST 2V 03/08/2023 2:35 PM FINDINGS: Lungs: Lungs are well aerated without a focal area of consolidation. Pleural spaces: Unremarkable. No pleural effusion. No pneumothorax. Heart/Mediastinum: Unremarkable. No cardiomegaly. Bones/joints: Unremarkable. IMPRESSION: Lungs are well aerated without a focal area of consolidation.
--- NOTE | 2023-08-29 08:22 | ED_ITS ---
Discharge Plan Disposition Patient Disposition: Admitted Prescriptions Prescriptions: No Action amlodipine 10 mg tablet 10 mg PO DAILY 90 Days Patient Comments: metformin 1,000 mg tablet 1,000 mg PO BID 90 Days Patient Comments: lisinopril 10 mg tablet 10 mg PO DAILY levothyroxine 25 mcg tablet 25 mcg PO DAILY Patient Comments: TAKE ONE TABLET BY MOUTH EVERY DAY latanoprost 0.005 % drops 1 drp Eye-Both HS Patient Comments: INSTILL 1 DROP INTO EACH EYE AT BEDTIME meloxicam 15 mg tablet 15 mg PO DAILY Patient Comments: TAKE ONE TABLET BY MOUTH EVERY DAY --TAKE WITH FOOD-- brimonidine 0.2 % drops 1 drp Eye-Both .COMPLEX Patient Comments: INSTILL 1 DROP INTO AFFECTED EYE(S) TWICE DAILY Rx Instructions: 1 drp Both Eyes bid; pioglitazone 30 mg tablet 30 mg PO DAILY Patient Comments: TAKE ONE TABLET BY MOUTH EVERY DAY Lumigan 0.01 % drops 1 drp ophthalmic (eye) DAILY fluoxetine 40 mg capsule 40 mg PO DAILY Patient Comments: TAKE 1 CAPSULE BY MOUTH ONCE DAILY valacyclovir 1 gram tablet 1,000 mg PO Q8H 7 Days Qty: 21 0RF Referrals Follow up/Referrals: Isacc Roberson MD [Primary Care Provider] - See instructions Clinical Impressions Clinical Impression: Shingles, Fatigue, DAVID (acute kidney injury) Discharge ED Provider: Krystian Jackson General Adult HPI General Chief complaint: Weakness Stated complaint: weakness shingles+ eye sight blurry Time Seen by Provider: 08/29/23 08:05 History of Present Illness HPI narrative: Patient is an 82-year-old female presents today with being tired . 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 She had a large-volume diagnostic and therapeutic lumbar puncture with significant improvement in her motor symptoms being able to transition from a walker to a cane at that time. She does not have a TOUR MANAGER shunt and her neurosurgeon in the past has not been fully convinced that this is NPH. Over the last several weeks the patient developed shingles in the facial distribution on the right side in her forehead and according to her sister who works here in the emergency department she has had some slurred speech over the last week and a half and has had some mental fogginess. She is currently at her baseline from that according to her sister. The patient denies any significant headache photophobia neck stiffness fevers. No rashes elsewhere on her body. She states that she just feels profoundly weak and tired. The only other sympt oms that she had yesterday was that she states that she was seeing some different colors in her vision and that she had some auditory hallucinations which have since resolved. No seizures. Related Data Home Medications Medication Instructions Recorded Confirmed amlodipine 10 mg tablet 10 mg PO DAILY Hypertension 90 days 08/17/17 08/10/23 metformin 1,000 mg tablet 1,000 mg PO BID Diabetes 90 days 08/17/17 08/10/23 lisinopril 10 mg tablet 10 mg PO DAILY Hypertension 11/03/18 08/10/23 fluoxetine 40 mg capsule 40 mg PO DAILY 08/15/21 08/10/23 latanoprost 0.005 % eye drops 1 drp Eye-Both HS 02/24/23 08/10/23 levothyroxine 25 mcg tablet 25 mcg PO DAILY 02/24/23 08/10/23 bimatoprost 0.01 % eye drops 1 drp ophthalmic (eye) DAILY 07/27/23 08/10/23 (Lumigan) brimonidine 0.2 % eye drops 1 drp Eye-Both .COMPLEX 07/27/23 08/10/23 meloxicam 15 mg tablet 15 mg PO DAILY 07/27/23 08/10/23 pioglitazone 30 mg tablet 30 mg PO DAILY 07/27/23 08/10/23 Previous Rx's Medication Instructions Recorded valacyclovir 1 gram tablet 1,000 mg PO Q8H 7 days #21 tabs 08/20/23 Allergies Allergy/AdvReac Type Severity Reaction Status Date / Time Sulfa (Sulfonamide Allergy Mild Hives Verified 08/10/23 13:35 Antibiotics) [SULFA (SULFONAMIDE ANTIBIOTICS)] trimethoprim [From BACTRIM] Allergy Mild Hives Verified 08/10/23 13:35 [facility] Disclaimer: The information contained in this section may have been updated after the patient was seen, as this information can be updated by other users. Medical History Acute hip pain Bilateral tinnitus Hearing loss Bilateral hearing aids Hyperlipidemia Hypertension Hypothyroidism Surgical History History of total left knee replacement Family History Other Cancer Coronary artery disease Social History Smoking Status: Never smoker second hand exposure: Yes alcohol intake: never counseling provided: none current occupational status: retired Travel in the last 8 weeks: None household members: none housing: house education level: high school current occupational exposures/hazards: No caffeine: No ROS Obtained: Yes All systems reviewed & no additional complaints except as documented Physical Exam General General appearance: alert Head Head exam: other (Evidence of a zoster rash on the right frontal aspect of her forehead) Neck Neck exam: Absent meningismus Respiratory Respiratory exam: Present normal lung sounds bilaterally Cardiovascular Cardiovascular exam: Present regular rate and normal rhythm Abdominal Exam Abdominal exam: Present soft; Absent distention or tenderness Neurological Exam Neurological exam: Present alert, oriented X3, CN II-XII intact, normal gait and other (Patient appears to have slightly slowed cognition but is answering all questions appropriately has a nonfocal neurologic exam no evidence of meningismus); Absent motor sensory deficit Medical Decision Making Alessandro Inquiry Pt receiving controlled substance: No Vital Signs: 08/29/23 08:00 Temperature 97.9 F Temperature Source Oral Pulse Rate [Right] 100 H Respiratory Rate 18 Blood Pressure [Right Arm] 210/100 H Blood Pressure Mean [Right Arm] 136 Blood Pressure Source [Right Arm] Automatic Cuff 02 Sat by Pulse Oximetry 98 Oxygen Delivery Method Room Air Lab Data Lab results reviewed: Yes I reviewed the patient's lab results. Lab Results 08/29/23 08:20: Urine Color Yellow, Urine Appearance Clear, Urine pH 6.0, Ur Specific [place] <= 1.005, Urine Protein Negative, Urine Glucose (UA) Negative, Urine Ketones Negative, Urine Blood 1+, Urine Nitrate Negative, Urine Bilirubin Negative, Urine Urobilinogen 0.2, Ur Leukocyte Esterase Negative, Urine RBC Occasional, Urine WBC Occasional, Ur Squamous Epith Cells Occasional, Urine Bacteria Trace 08/29/23 08:30: WBC 11.3 H, RBC 4.47, Hgb 13.9, Hct 41.0, MCV 91.7, MCH 31.2, MCHC 34.0, RDW 14.4, Plt Count 390, MPV 8.0, Neut % (Auto) 82.4 H, Lymph % (Auto) 9.8 L, Fajardo % (Auto) 6.1, Eos % (Auto) 1.4, Baso % (Auto) 0.3, Neut # (Auto) 9.3 H, Lymph # (Auto) 1.1, Fajardo # (Auto) 0.7, Eos # (Auto) 0.2, Baso # (Auto) 0.0, Sodium 132 L, Potassium 5.2 H, Chloride 100, Carbon Dioxide 21 L, Anion Gap 16.2 H, BUN 26 H, Creatinine 3.50 H, Estimated Creat Clear 16, Estimated GFR 13 L*, Est GFR ( Amer) 15 L*, Glucose 182 H, Lactate 1.4, Calcium 9.2, Total Bilirubin 0.8, AST 33, ALT 22, Alkaline Phosphatase 76, Troponin I < 0.01, Total Protein 7.7, Albumin 4.4, Globulin 3.3 H, Albumin/Globulin Ratio 1.3 08/29/23 08:30 08/29/23 08:30 Orders (Tests/Meds): ED MEDICATIONS Generic Name Dose Route Start Last Admin Trade Name Freq PRN Reason Stop Dose Admin Lactated Ringer's 1,000 mls @ 150 mls/hr 08/29/23 09:45 Lactated Ringer's 1000 Ml Bag IV 09/28/23 09:44 .[id number] SHILOH Discontinued Medications Generic Name Dose Route Start Last Admin Trade Name Freq PRN Reason Stop Dose Admin Lactated Ringer's 1,000 mls @ 999 mls/hr 08/29/23 08:30 08/29/23 08:47 Lactated Ringer's 1000 Ml Bag IV 08/29/23 09:30 999 mls/hr .Q1H1M SHILOH Administration ORDERS Category Date Time Status CT angio head Stat Cat Scan 08/29/23 08:[address] angio neck Stat Cat Scan 08/29/23 08:[address] head/brain wo con Stat Cat Scan 08/29/23 08:18 Taken CXR --portable [XR chest portable] Stat Exams 08/29/23 08:18 Completed CBC w/Auto Diff [Complete Blood Count Auto Diff] Stat Lab 08/29/23 08:30 Completed CMP [Comprehensive Metabolic Panel] Stat Lab 08/29/23 08:30 Completed Lactic Acid Stat Lab 08/29/23 08:30 Completed Trop I [Troponin I] Stat Lab 08/29/23 08:30 Completed Troponin I Q3H Lab 08/29/23 11:30 Ordered Troponin I Q3H Lab 08/29/23 14:30 Ordered UA [Urinalysis and Microscopic] Stat Lab 08/29/23 08:20 Completed Blood Culture Stat Micro 08/29/23 08:30 Ordered ECG initial Besson Routine Y 08/29/23 08:27 Completed ECG Data Tracing #1: I reviewed this ECG and interpreted as documented below: Sinus rhythm ventricular rate of 93 no ischemic changes no significant conduction abnormalities there is normal axis Medical Decision Narrative: Patient is an 82-year-old female significantly hypertensive presents today with profound weakness and being tired. She recently had been diagnosed with possible NPH awaiting neurosurgical consultation for TOUR MANAGER shunt. Additionally she recently was diagnosed with shingles and over the last week and a half according to her sister she has had slowed cognition out of proportion to her baseline. Her sister in fact felt like she may have had a stroke. Differential currently includes CVA, steroid-induced psychosis, dehydration, metabolic abnormality infectious etiologies, DIRECTOR BIOLOGICS zoster, hypertensive encephalopathy, press etc. Will get a CT angio head and neck and a noncontrasted CT scan of the head and initiate an infectious workup and metabolic workup. Currently patient does not have convincing evidence of meningitis or encephalitis she has no meningismus no fever her rash is isolated to a single dermatomal distribution however it is in the bulbar region making a DIRECTOR BIOLOGICS infection more likely. Will look for alternative diagnoses and reassess. At the moment I am not convinced to that this is endorgan damage from hypertension will allow her hypertension to remain elevated and not directly intervene at the moment until there is evidence of endorgan damage or no alternative diagnosis. I suspect her hypertension is secondary to the steroid she is been taken over the last 4 weeks. Reassessment at 9:[address] scan of the head performed without contrast as I was unable to get CTA due to patient's renal insufficiency and personally interpreted the CT scan which shows no acute intracranial abnormality. Specifically no evidence of any temporal lobe infarctions or hemorrhaging. Labs remarkable for acute kidney injury creatinine of 3.5 with a baseline of less than 1. This is most likely secondary to the recent acyclovir or valacyclovir use and is likely crystal induced acute kidney injury. For this reason we will continue to give isotonic fluids to clear out these crystals. A bolus has been given and she has been initiated on 150/h of LR. I would not give any loop diuretics at this point. I spoke with Dr. Francis who is on-call for Dr. Roberson and he accepted the patient to be admitted to Dr. Barbour. At this point I do not believe that this is a DIRECTOR BIOLOGICS infection associated with zoster and patient will be admitted for further evaluation and treatment. Critical Care Critical Care Time Critical Care Time: Yes Attestation: On 08/29/23, the high probability of a clinically significant, sudden or life t hreatening deterioration of the following system(s) required my full and direct attention, intervention and personal management. The time I documented below is in addition to time spent performing reported procedures but includes the following listed in this critical care notation. Total Time Total Critical Care Time: 35
--- NOTE | 2023-08-29 08:27 | ECG_ITS ---
APPROVED REPORT Exam: Resting ECG HR:93 bpm ECG Measurements Heart Rate 93 AXES AL 149 P 71 QRSd 94 QRS 5 QT 338 T 51 QTc 388 Conclusion SINUS RHYTHM NORMAL ECG UNCONFIRMED REPORT Electronically signed by : Bryn Mercedes MD 08/29/2023 14:30:26
--- NOTE | 2023-08-29 08:32 | PC.NURSE ---
XR AT BEDSIDE
--- NOTE | 2023-08-29 08:32 | PC.NURSE ---
RAD at [facility]
[2023-08-29 08:34] LABS: Appearance,Urine CLEAR (Clear); Bilirubin,Urine Negative (Negative); Blood, Urine 1+ (Negative); Color,Urine YELLOW (Yellow); Glucose,Urine (UA) Negative (Negative); Ketones,Urine Negative (Negative); Leukocyte Esterase,Urine Negative (Negative); Microscopic, Urine URINE MICROSCOPIC (MICROSCOPIC); Nitrate,Urine Negative (Negative); Protein,Urine Negative (Negative); Specific Gravity, Urine <= 1.005 (1.005-1.030); Urobilinogen,Urine 0.2 EU/dl (0.2)
[2023-08-29] MEDS: LACTATED RINGERS 1000ML 1,000 ML 999 ML IV (08:47)
--- NOTE | 2023-08-29 08:51 | PC.NURSE ---
WARM BLANKET PROVIDED, CALL LIGHT WITHIN REACH. NO NEEDS AT THIS TIME
[2023-08-29 08:55] LABS: Basophils % 0.3 % (0.1-2.0); Eosinophils # 0.2 K/mm3 (0.0-0.4); Eosinophils % 1.4 % (0.1-12.0); Hemoglobin 13.9 g/dL (12.2-16.2); Lymphocytes # 1.1 K/mm3 (0.7-4.5); Lymphocytes % 9.8 % (10-50); Mean Corpuscular Hemoglobin 31.2 pg (27.0-31.2); Mean Corpuscular Volume 91.7 fl (81-99); Monocytes # 0.7 K/mm3 (0.1-1.0); Monocytes % 6.1 % (1.7-9.3); Neutrophils # 9.3 K/mm3 (1.8-7.8); Neutrophils % 82.4 % (37.0-80.0); Platelet Count 390 K/mm3 (142-424); Red Blood Count 4.47 M/mm3 (4.20-5.40); Red Cell Distribution Width 14.4 % (11.5-17.5); White Blood Count 11.3 K/mm3 (4.8-10.8)
[2023-08-29 08:59] LABS: Chloride 100 mmol/L (98-107)
[2023-08-29 09:00] LABS: Potassium 5.2 mmoL/L (3.5-5.1); Sodium 132 mmol/L (136-145)
[2023-08-29 09:02] LABS: Alanine Aminotransferase 22 U/L (12-78); Aspartate Amino Transferase 33 U/L (14-36); Blood Urea Nitrogen 26 mg/dl (7-17); Creatinine Clearance Estimated 16 mL/min (50-200); Estimated Glomerular Filt Rate 13 ml/min (>60); GFR (African American) 15 ML/MIN (>60)
[2023-08-29 09:02] LABS: Bacteria,Urine Trace /lpf; RBC,Urine Occasional #/hpf (0-3); Squamous Epithelial Cell,Urine Occasional #/hpf (0-5); WBC,Urine Occasional #/hpf (0-3)
[2023-08-29 09:03] LABS: Albumin Level 4.4 g/dl (3.5-5.0); Albumin/Globulin Ratio 1.3 (1.1-1.8); Alkaline Phosphatase 76 U/L (38-126); Anion Gap 16.2 mEq/L (5-15); Bilirubin,Total 0.8 mg/dl (0.2-1.3); Calcium 9.2 mg/dl (8.4-10.2); Carbon Dioxide 21 mmol/L (22.0-30.0); Globulin 3.3 g/dL (1.3-3.2); Glucose 182 mg/dl (74-100); Total Protein,Serum 7.7 g/dl (6.3-8.2)
[2023-08-29 09:06] LABS: Lactic Acid 1.4 mmol/L (0.7-2.1)
[2023-08-29 09:15] LABS: Troponin I < 0.01 ng/ml (0.00-0.034)
--- NOTE | 2023-08-29 09:28 | PC.NURSE ---
Pt gone to RAD via stretcher
--- NOTE | 2023-08-29 09:29 | PC.NURSE ---
Dr. Mago casanova
--- NOTE | 2023-08-29 09:32 | PC.NURSE ---
Pt returned from RAD
--- NOTE | 2023-08-29 09:33 | PC.NURSE ---
DR PATTERSON SPEAKING WITH DR ALVAREZ FOR DR PABLO
--- NOTE | 2023-08-29 09:39 | PC.NURSE ---
UI DEVELOPER WITH [employer] NOTIFIED OF ADMISSION
--- NOTE | 2023-08-29 09:42 | PC.NURSE ---
Second set of cultures drawn and sent to lab
--- NOTE | 2023-08-29 09:54 | PC.NURSE ---
FAMILY AT BEDSIDE
--- NOTE | 2023-08-29 09:57 | PC.NURSE ---
FAMILY UPDATED BY DR PATTERSON
--- NOTE | 2023-08-29 10:10 | PC.NURSE ---
Ordered pt toast and grape juice per request
--- NOTE | 2023-08-29 10:13 | PC.NURSE ---
DR RIVERA AT BEDSIDE
--- NOTE | 2023-08-29 10:21 | P.HP_ITS ---
History of Present Illness *Admission Date: 08/29/23 *Reason for visit:: Weakness *History of present illness: Ms. Ash is an 82 year old female patient of [facility] who see Dr. Roberson for her primary care. She presented to [facility] ER this morning complaining of weakness, difficulty walking and having hallucinations overnight. 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 She was seen at [facility] neurosurgery for an evaluation for a JET INSPECTOR shunt placement but the surgeon did not think a shunt was indicated at this time. Most recently, Ms. Ash was diagnosed with shingles on the right side of her face and was treated with an antiviral medication which she just finished. [facility] Disclaimer: The information contained in this section may have been updated after the patient was seen, as this information can be updated by other users. Medical History (Updated 08/29/23 @ 10:30 by Sergei Barbour MD) Acute hip pain Bilateral tinnitus Colon polyps Depression Hearing loss Hyperlipidemia Hypertension Hypothyroidism Ocular histoplasmosis Osteoarthritis Right humeral fracture Type 2 diabetes mellitus Surgical History (Updated 08/29/23 @ 10:30 by Sergei Barbour MD) H/O thyroidectomy History of partial hysterectomy History of total left knee replacement Family History Other Cancer Coronary artery disease Social History Smoking Status: Never smoker second hand exposure: Yes alcohol intake: never counseling provided: none current occupational status: retired Travel in the last 8 weeks: None household members: none housing: house education level: high school current occupational exposures/hazards: No caffeine: No Review of Systems Constitutional Constitutional: Denies chills and Denies fever(s) ENT Ears, Nose, Mouth, and Throat: Denies dizziness *Cardiovascular Cardiovascular: Denies chest pain and Denies dyspnea *Respiratory Respiratory: Denies dyspnea *Gastrointestinal Gastrointestinal: Denies loose stools *Genitourinary Genitourinary: Denies dysuria *Musculoskeletal Musculoskeletal: Reports abnormal gait *Neurologic Neurologic: Reports abnormal gait and Denies dizziness Meds Home Medications and Allergies Home Medications Medication Instructions Recorded Confirmed Type amlodipine 10 mg tablet 10 mg PO DAILY Hypertension 90 days 08/17/17 08/29/23 History metformin 1,000 mg tablet 1,000 mg PO BID Diabetes 90 days 08/17/17 08/29/23 History lisinopril 10 mg tablet 10 mg PO DAILY Hypertension 11/03/18 08/29/23 History fluoxetine 40 mg capsule 40 mg PO DAILY 08/15/21 08/29/23 History latanoprost 0.005 % eye drops 1 drp Eye-Both HS 02/24/23 08/29/23 History levothyroxine 25 mcg tablet 25 mcg PO DAILY 02/24/23 08/29/23 History bimatoprost 0.01 % eye drops 1 drp ophthalmic (eye) DAILY 07/27/23 08/29/23 History (Lumigan) brimonidine 0.2 % eye drops 1 drp Eye-Both .COMPLEX 07/27/23 08/29/23 History pioglitazone 30 mg tablet 30 mg PO DAILY 07/27/23 08/10/23 History New Prescriptions to Start Prescriptions: Allergies Allergy/AdvReac Type Severity Reaction Status Date / Time Sulfa (Sulfonamide Allergy Mild Hives Verified 08/10/23 13:35 Antibiotics) [SULFA (SULFONAMIDE ANTIBIOTICS)] trimethoprim [From BACTRIM] Allergy Mild Hives Verified 08/10/23 13:35 Exam Data for Last 24 hours Vital signs and Labs for Last 24 Hours: Temp Pulse Resp BP Pulse Ox O2 Del Method 97.9 F 93 H 18 171/90 H 96 Room Air 08/29/23 08:00 08/29/23 09:40 08/29/23 08:00 08/29/23 09:40 08/29/23 09:40 08/29/23 09:40 Laboratory Results - last 24 hr 08/29/23 08:20: Urine Color Yellow, Urine Appearance Clear, Urine pH 6.0, Ur Specific [place] <= 1.005, Urine Protein Negative, Urine Glucose (UA) Negative, Urine Ketones Negative, Urine Blood 1+, Urine Nitrate Negative, Urine Bilirubin Negative, Urine Urobilinogen 0.2, Ur Leukocyte Esterase Negative, Urine RBC Occasional, Urine WBC Occasional, Ur Squamous Epith Cells Occasional, Urine Bacteria Trace 08/29/23 08:30: WBC 11.3 H, RBC 4.47, Hgb 13.9, Hct 41.0, MCV 91.7, MCH 31.2, MCHC 34.0, RDW 14.4, Plt Count 390, MPV 8.0, Neut % (Auto) 82.4 H, Lymph % (Auto) 9.8 L, [place] % (Auto) 6.1, Eos % (Auto) 1.4, Baso % (Auto) 0.3, Neut # (Auto) 9.3 H, Lymph # (Auto) 1.1, [place] # (Auto) 0.7, Eos # (Auto) 0.2, Baso # (Auto) 0.0, Sodium 132 L, Potassium 5.2 H, Chloride 100, Carbon Dioxide 21 L, Anion Gap 16.2 H, BUN 26 H, Creatinine 3.50 H, Estimated Creat Clear 16, Estimated GFR 13 L*, Est GFR ( Amer) 15 L*, Glucose 182 H, Lactate 1.4, Calcium 9.2, Total Bilirubin 0.8, AST 33, ALT 22, Alkaline Phosphatase 76, Troponin I < 0.01, Total Protein 7.7, Albumin 4.4, Globulin 3.3 H, Albumin/Globulin Ratio 1.3 I & O for Last 24 hours: Intake & Output 08/26/23 08/27/23 08/28/23 08/29/23 23:59 23:59 23:59 23:59 Weight 169 lb Constitutional Constitutional: no acute distress *Routine HEENT Exam Head: Present normocephalic Eye: Present EOMI and PERRL ENT: Present mucous membranes moist *Routine Neck Exam Neck: Present supple; Absent lymphadenopathy *Routine Respiratory Exam Respiratory: Present CTA bilaterally *Routine Cardiovascular Exam Cardiovascular: Present RRR *Routine Abdominal Exam Abdominal: Present soft and normoactive bowel sounds; Absent tenderness *Routine Rectal Exam Rectal:: deferred *Routine Genitalia Exam Genitalia:: deferred *Routine Extremities Exam Extremities: Absent cyanosis, clubbing or edema *Routine Skin Exam Skin: Present warm and rash (c/w shingles on right forehead) *Routine Neurological Exam Neurological: Present alert and oriented X3 Assessment and Plan *Assessment and plan (1) DAVID (acute kidney injury): Status: Acute Category: Medical Code(s): N17.9 - Acute kidney failure, unspecified (2) Shingles: Status: Acute Category: Medical Code(s): B02.9 - Zoster without complications (3) Fatigue: Status: Acute Category: Medical Code(s): R53.83 - Other fatigue (4) Gait disturbance: Status: Chronic Category: Medical Code(s): R26.9 - Unspecified abnormalities of gait and mobility (5) NPH (normal pressure hydrocephalus): Status: Suspected Category: Medical Code(s): G91.2 - (Idiopathic) normal pressure hydrocephalus (6) Hearing loss: Problem Comment: Bilateral hearing aids Status: Chronic Qualifiers: Hearing loss type: unspecified Laterality: bilateral Qualified Code(s): H91.93 - Unspecified hearing loss, bilateral Category: Medical Code(s): H91.90 - Unspecified hearing loss, unspecified ear (7) Weakness: Status: Chronic Category: Medical Code(s): R53.1 - Weakness (8) Type 2 diabetes mellitus: Status: Chronic Qualifiers: Diabetes mellitus mcc insulin use: without mcc use Diabetes mellitus complication status: with other specified complication Qualified Code(s): E11.69 - Type 2 diabetes mellitus with other specified complication Category: Medical Code(s): E11.9 - Type 2 diabetes mellitus without complications (9) Hypertension: Status: Acute Category: Medical Code(s): I10 - Essential (primary) hypertension (10) Hypothyroidism: Status: Acute Category: Medical Code(s): E03.9 - Hypothyroidism, unspecified Plan Patient admitted for further evaluation and management. Renal function was normal just over a month ago, IVF have been started, will monitor labs.
--- NOTE | 2023-08-29 10:21 | PC.NURSE ---
Placed order for lunch tray
[2023-08-29] MEDS: AMLODIPINE 10MG TABLET 10 MG PO (10:58)
--- NOTE | 2023-08-29 11:57 | PC.NURSE ---
Pt assisted to bedside. No other needs voiced at this time. Call light within reach.
--- NOTE | 2023-08-29 12:11 | HMH.PHAINT1 ---
Pharmacy Intervention Comments: MEDICATION RECONCILIATION COMPLETE USING LIST FROM MOST RECENT MD OFFICE VISIT AND EXTERNAL PHARMACY FILL HISTORY.
--- NOTE | 2023-08-29 12:23 | PC.NURSE ---
PT provided with lunch tray and assisted with set up. No other needs voiced and call light within reach.
--- NOTE | 2023-08-29 12:50 | PC.NURSE ---
Report called to CHANTAL Gonzalez
--- NOTE | 2023-08-29 13:37 | PC.NURSE ---
pt refuses all blood products. DNR is signed and on the chart.
--- NOTE | 2023-08-29 13:45 | PC.NURSE ---
Addendum entered by Lisa Curry RN 08/29/23 13:48: pt also reports poor vision and is unable to see to sign papers Original Note: pt is very pleasant during admission. She is alert but reports having difficulty with memory. Her gate is unsteady and she reports increased weakness. She lives by herself
[2023-08-29] MEDS: LACTATED RINGERS 1000ML 1,000 ML 150 ML IV (14:02)
[2023-08-29] MEDS: LATANOPROST 0.005% OPTH SOLN 2.5ML OP (20:10)
--- NOTE | 2023-08-29 21:02 | PC.NURSE ---
patient verbalized she has had singles for the last 3 weeks Currently taking 3 different types of eye drops, see mar for HS dose - small open sores with some crusty coating beginning around both eyes and small sore on right arm noted -- PATIENT PLACED ON CONTACT & [employer] AT 199908/29/23
[2023-08-30] MEDS: LACTATED RINGERS 1000ML 1,000 ML 150 ML IV ×3 (00:58→17:06)
[2023-08-30 04:00] VITALS: BP 173/81; PULSE 91; RESP 18; TEMP 36.5; O2SAT 94; BMI 25.9
[2023-08-30 08:00] VITALS: BP 156/72; PULSE 89; RESP 16; TEMP 36.8; O2SAT 95
--- NOTE | 2023-08-30 08:22 | EXP.ACUTE.PN ---
Subjective *Date: 08/30/23 *Time: 09:02 Interval history: Patient states she feels better and wants to go home. She denies any pain or shortness of breath. She is anxious to eat breakfast. She is ambulated to the bathroom with help. Medical Exam Vital signs and Labs for Last 24 Hours: Vital Signs Temp Pulse Pulse Resp BP BP Pulse Ox 08/30/23 04:00 97.7 F 91 H 18 173/81 H 94 L 08/29/23 23:00 08/29/23 20:00 98.0 F 103 H 16 165/83 H 95 08/30/23 06:16 08/30/23 05:00 08/30/23 02:55 08/30/23 01:00 08/29/23 21:00 08/29/23 20:00 08/29/23 16:00 97.6 F 100 H 16 164/80 H 94 L 08/29/23 12:00 97.8 F 98 H 17 165/86 H 97 08/29/23 19:00 08/29/23 17:00 08/29/23 15:00 08/29/23 12:59 98.0 F 96 H 20 174/95 H 08/29/23 11:53 94 H 174/95 H 96 08/29/23 09:40 93 H 171/90 H 96 O2 Del Method 08/30/23 04:00 Room Air 08/29/23 23:00 Room Air 08/29/23 20:00 Room Air 08/30/23 06:16 Room Air 08/30/23 05:00 Room Air 08/30/23 02:55 Room Air 08/30/23 01:00 Room Air 08/29/23 21:00 Room Air 08/29/23 20:00 Room Air 08/29/23 16:00 Room Air 08/29/23 12:00 Room Air 08/29/23 19:00 Room Air 08/29/23 17:00 Room Air 08/29/23 15:00 Room Air 08/29/23 12:59 Room Air 08/29/23 11:53 Room Air 08/29/23 09:40 Room Air Intake and Output 08/29/23 08/30/23 08/30/23 19:59 03:59 11:59 Intake Total 880 / 880 Output Total 0 / 0 0 / 0 0 / 0 Balance 0 / 0 880 / 880 0 / 880 Intake: Intake, Oral Amount 120 / 120 Intake, Other Amount 10 / 10 Intake, Total IV Amount 750 / 750 Lactated Ringers 1000ML 1,000 750 / 750 ml @ 150 mls/hr IV .Q6H40M [facility] Rx#:[id number] Output: Output, Urine Amount 0 / 0 0 / 0 0 / 0 Other: Intake, Other Source Saline Solution Number of Unmeasured Voids 2 1 1 Weight 146 lb 146 lb 5 oz Patient Weight 08/30/23 11:59 Weight 146 lb 5 oz Laboratory Results - last 24 hr 08/29/23 08:20: Urine Color Yellow, Urine Appearance Clear, Urine pH 6.0, Ur Specific [place] <= 1.005, Urine Protein Negative, Urine Glucose (UA) Negative, Urine Ketones Negative, Urine Blood 1+, Urine Nitrate Negative, Urine Bilirubin Negative, Urine Urobilinogen 0.2, Ur Leukocyte Esterase Negative, Urine RBC Occasional, Urine WBC Occasional, Ur Squamous Epith Cells Occasional, Urine Bacteria Trace 08/29/23 08:30: WBC 11.3 H, RBC 4.47, Hgb 13.9, Hct 41.0, MCV 91.7, MCH 31.2, MCHC 34.0, RDW 14.4, Plt Count 390, MPV 8.0, Neut % (Auto) 82.4 H, Lymph % (Auto) 9.8 L, [place] % (Auto) 6.1, Eos % (Auto) 1.4, Baso % (Auto) 0.3, Neut # (Auto) 9.3 H, Lymph # (Auto) 1.1, [place] # (Auto) 0.7, Eos # (Auto) 0.2, Baso # (Auto) 0.0, Sodium 132 L, Potassium 5.2 H, Chloride 100, Carbon Dioxide 21 L, Anion Gap 16.2 H, BUN 26 H, Creatinine 3.50 H, Estimated Creat Clear 16, Estimated GFR 13 L*, Est GFR ( Amer) 15 L*, Glucose 182 H, Lactate 1.4, Calcium 9.2, Total Bilirubin 0.8, AST 33, ALT 22, Alkaline Phosphatase 76, Troponin I < 0.01, Total Protein 7.7, Albumin 4.4, Globulin 3.3 H, Albumin/Globulin Ratio 1.3 I & O for Labs for Last 24 Hours: Intake & Output 08/27/23 08/28/23 08/29/23 08/30/23 11:59 11:59 11:59 11:59 Intake Total 880 / 880 Output Total 0 / 0 Balance 880 / 880 Weight 169 lb 146 lb 5 oz Constitutional: Present no acute distress Respiratory: Present CTA bilaterally (Anteriorly and posteriorly) Cardiac: Present Reg Rate and Rhythm GI: Present soft and normal bowel sounds; Absent distention, tenderness or guarding Extremities: Present normal inspection; Absent tenderness or edema Neuro: Present alert, awake and oriented x 3 Assessment and Plan *Assessment and plan (1) DAVID (acute kidney injury): Status: Acute Category: Medical Code(s): N17.9 - Acute kidney failure, unspecified (2) Shingles: Status: Acute Category: Medical Code(s): B02.9 - Zoster without complications (3) Fatigue: Status: Acute Category: Medical Code(s): R53.83 - Other fatigue (4) Gait disturbance: Status: Chronic Category: Medical Code(s): R26.9 - Unspecified abnormalities of gait and mobility (5) NPH (normal pressure hydrocephalus): Status: Suspected Category: Medical Code(s): G91.2 - (Idiopathic) normal pressure hydrocephalus (6) Hearing loss: Problem Comment: Bilateral hearing aids Status: Chronic Qualifiers: Hearing loss type: unspecified Laterality: bilateral Qualified Code(s): H91.93 - Unspecified hearing loss, bilateral Category: Medical Code(s): H91.90 - Unspecified hearing loss, unspecified ear (7) Weakness: Status: Chronic Category: Medical Code(s): R53.1 - Weakness (8) Type 2 diabetes mellitus: Status: Chronic Qualifiers: Diabetes mellitus complication status: with other specified complication Diabetes mellitus long term acute care registered nurse insulin use: without fpc use Qualified Code(s): E11.69 - Type 2 diabetes mellitus with other specified complication Category: Medical Code(s): E11.9 - Type 2 diabetes mellitus without complications (9) Hypertension: Status: Acute Category: Medical Code(s): I10 - Essential (primary) hypertension (10) Hypothyroidism: Status: Acute Category: Medical Code(s): E03.9 - Hypothyroidism, unspecified Plan Receiving IV fluids at 150/h. Will repeat labs this a.m. Possibly home later today if renal function and electrolytes have improved. Dr. Barbour entry - Saw patient, agree with above note, am labs are pending.
[2023-08-30 08:35] LABS: MANUAL DIFFERENTIAL MANUAL DIFFERENTIAL (MANUAL DIFF)
[2023-08-30 08:38] LABS: Basophils % 0.2 % (0.1-2.0)
[2023-08-30 08:43] LABS: Chloride 105 mmol/L (98-107); Potassium 3.9 mmoL/L (3.5-5.1); Sodium 137 mmol/L (136-145)
[2023-08-30 08:45] LABS: Eosinophils % 0.5 % (0.1-12.0); Hematocrit 36.3 % (37.0-47.0); Lymphocytes # 1.5 K/mm3 (0.7-4.5); Lymphocytes % 22.2 % (10-50); Mean Corpuscular HGB Conc 33.1 g/dL (31.8-35.4); Mean Corpuscular Hemoglobin 30.3 pg (27.0-31.2); Mean Corpuscular Volume 91.6 fl (81-99); Mean Platelet Volume 7.6 fl (7.4-10.4); Monocytes # 0.5 K/mm3 (0.1-1.0); Monocytes % 7.7 % (1.7-9.3); Neutrophils # 4.6 K/mm3 (1.8-7.8); Neutrophils % 69.4 % (37.0-80.0); Platelet Count 346 K/mm3 (142-424); Red Blood Count 3.97 M/mm3 (4.20-5.40); Red Cell Distribution Width 14.7 % (11.5-17.5); White Blood Count 6.6 K/mm3 (4.8-10.8)
[2023-08-30 08:46] LABS: Anion Gap 9.9 mEq/L (5-15); Blood Urea Nitrogen 19 mg/dl (7-17); Carbon Dioxide 26 mmol/L (22.0-30.0); Creatinine Clearance Estimated 22 mL/min (50-200); Estimated Glomerular Filt Rate 23 ml/min (>60); GFR (African American) 27 ML/MIN (>60)
[2023-08-30 08:47] LABS: Calcium 8.9 mg/dl (8.4-10.2); Glucose 210 mg/dl (74-100)
[2023-08-30] MEDS: AMLODIPINE 10MG TABLET 10 MG PO (09:04)
[2023-08-30] MEDS: TIMOLOL OP ×2 (09:11→20:56)
[2023-08-30] MEDS: DORZOLAMIDE OP ×2 (09:11→20:56)
[2023-08-30] MEDS: BRIMONIDINE 0.2% OPHTH SOLN 5ML BOTTLE OP ×2 (09:12→20:57)
--- NOTE | 2023-08-30 09:59 | HMH.PTEV ---
Physical Therapy Evaluation Rehab PT IP Evaluation Start: 08/29/23 18:41 Freq: .once Status: Active Protocol: Document 08/30/23 08:50 BRIANA (Rec: 08/30/23 09:59 BRIANA [email or web address]) Subjective/History History History Per history and physical: Ms. Ash is an 82 year old female patient of [facility] who see Dr. Roberson for her primary care. She presented to [facility] ER this morning complaining of weakness, difficulty walking and having hallucinations overnight. 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 She was seen at [facility] neurosurgery for an evaluation for a ORDER PROCESSING CLERK shunt placement but the surgeon did not think a shunt was indicated at this time. Most recently, Ms. Ash was diagnosed with shingles on the right side of her face and was treated with an antiviral medication which she just finished. Subjective Subjective This is my third week with shingles but my unsteadiness has cleared up PLOF per pt report: IND with RW for ambulation. 1STE single -level apartment with handrail . Denies falls in past 30 days . Driving prior to admission. New diagnosis of cancer in past 12 No months? Rehab PT IP Eval Objective Appearance Patient Behavior Appropriate,Cooperative Patient Orientation Person,Place,Situation Difficulty following instructions none Speech Pattern Clear Ambulation Patient Able to Ambulate Yes Ambulation Observation Ambulation Distance (feet) 20 Ambulation Assistive Device Rolling Walker Ambulation Ability Supervision/Stand by Balance Ability to Arise Able, uses arms to help Sitting Balance Steady, safe Standing Balance Steady, wide stance Transfers Bed Transfer Ability Supervision/Stand by Sit to Stand Bed Transfer Ability Supervision/Stand by Rehab PT IP prob,goals,plan Problems Date of Evaluation: 08/30/23 Rehab Potential Rehab Potential Innapropriate for Skilled Therapy Discharge Plan PT Discharge Plan Pt safe to d/c home when deemed medically necessary d/t current level of mobility, home set-up, and available family and friend support. PT provided SUP for ambulation and bed mobility for safety but pt demonstrated steady ambulation using RW. PT recommending pt continue outpatient PT for higher level balance and gait training. PT educated pt on safety, bed mobility techniques, and RW use. Skilled PT not required at this time d/t pt at baseline function. Eval Complexity Eval Charge Codes 29713 - Moderate Complexity PHYSICIAN CERTIFICATION: I certify the specified therapy services for Rossana Ash are required, authorized, and reviewed every 30 days.
[2023-08-30 12:00] VITALS: BP 146/75; PULSE 74; RESP 16; TEMP 36.4; O2SAT 95
[2023-08-30 14:40] LABS: Lymphocytes % 16 % (10-50); Monocytes % 10 % (2-9); Neutrophils % 73 % (42-76); Total Cells Counted 100
[2023-08-30 14:41] LABS: Platelet Estimate Normal; RBC Morphology Normal
--- NOTE | 2023-08-30 15:59 | PC.NURSE ---
A&OX4. PT HAS TOLERATED RA WELL THROUGHOUT SHIFT. RESPIRATIONS REGULAR AND UNLABORED. LUNG SOUNDS CLEAR THROUGHOUT. NO COUGH NOTED. ACTIVE BOWEL SOUNDS HEARD IN ALL 4 QUADRANTS. SOFT AND NONTENDER ABDOMEN. NO BM THUS FAR. VOIDS PER AMBULATION TO BATHROOM WITH WALKER AND STANDBY ASSISTANCE. CLEAR YELLOW URINE NOTED. DENIES ANY PAIN THUS FAR. HAND ROASTER HELPER EQUAL. +1 PULSES NOTED THROUGHOUT. NO EDEMA NOTED. PT HAS HAD A FEW VISITORS TODAY. PT HAS REMAINED IN CONTACT/ [employer] PRECAUTIONS FOR SHINGLES WITH OPEN PLACES NOTED. NO QUESTIONS OR CONCERNS VOICED. FAMILY AWARE OF POSSIBLE DC HOME TODAY OR TOMORROW. BED IN LOWEST POSITION. CALL LIGHT WITHIN REACH. VSS.
[2023-08-30 16:00] VITALS: BP 173/68; PULSE 78; RESP 16; TEMP 36.6; O2SAT 97
[2023-08-30 20:00] VITALS: BP 155/83; PULSE 86; RESP 16; TEMP 36.6; O2SAT 97
[2023-08-30] MEDS: LATANOPROST 0.005% OPTH SOLN 2.5ML OP (20:57)
[2023-08-31] VITALS: BP 169/78; PULSE 82; RESP 16; TEMP 36.6; O2SAT 96
[2023-08-31] MEDS: LACTATED RINGERS 1000ML 1,000 ML 150 ML IV ×2 (00:50→06:48)
[2023-08-31 04:00] VITALS: BP 166/74; PULSE 75; RESP 18; TEMP 36.6; O2SAT 97; BMI 25.9
--- NOTE | 2023-08-31 04:50 | PC.NURSE ---
Patient BP elevated 169/78 at 0400 - asymptomatic; all other VS WNL. Patient does have 1 postule opened in bend of left elbow. No c/o itching or irritation, denies pain this time. Patient continues to rest, with no voiced concerns at that time.
[2023-08-31 06:50] LABS: Basophils % 0.4 % (0.1-2.0); Eosinophils # 0.1 K/mm3 (0.0-0.4); Eosinophils % 1.3 % (0.1-12.0); Hematocrit 33.5 % (37.0-47.0); Hemoglobin 11.4 g/dL (12.2-16.2); Lymphocytes # 1.7 K/mm3 (0.7-4.5); Lymphocytes % 28.8 % (10-50); Mean Corpuscular Hemoglobin 30.4 pg (27.0-31.2); Mean Corpuscular Volume 89.5 fl (81-99); Monocytes # 0.5 K/mm3 (0.1-1.0); Monocytes % 7.6 % (1.7-9.3); Neutrophils # 3.6 K/mm3 (1.8-7.8); Neutrophils % 61.9 % (37.0-80.0); Platelet Count 322 K/mm3 (142-424); Red Blood Count 3.74 M/mm3 (4.20-5.40); Red Cell Distribution Width 14.9 % (11.5-17.5); White Blood Count 5.9 K/mm3 (4.8-10.8)
[2023-08-31 06:53] LABS: Chloride 104 mmol/L (98-107); Potassium 3.2 mmoL/L (3.5-5.1); Sodium 138 mmol/L (136-145)
[2023-08-31 06:56] LABS: Anion Gap 6.2 mEq/L (5-15); Blood Urea Nitrogen 13 mg/dl (7-17); Calcium 8.5 mg/dl (8.4-10.2); Carbon Dioxide 31 mmol/L (22.0-30.0); Creatinine Clearance Estimated 34 mL/min (50-200); Estimated Glomerular Filt Rate 36 ml/min (>60); GFR (African American) 44 ML/MIN (>60); Glucose 135 mg/dl (74-100)
--- NOTE | 2023-08-31 07:51 | EXP.ACUTE.PN ---
Subjective *Date: 08/31/23 *Time: 08:52 Interval history: Patient states she feels great. She denies any chest pain, shortness of breath, abdominal pain, or nausea. She has been able to eat without difficulties. She does have some head discomfort in the right scalp area from shingles outbreak. Bowels are moving normally. She is voiding QS. Lab data this morning shows normal white blood cell count. Creatinine has improved from 2.100-1.40 with a BUN of 13. Medical Exam Vital signs and Labs for Last 24 Hours: Vital Signs Temp Pulse Resp BP Pulse Ox O2 Del Method 08/31/23 06:39 Room Air 08/31/23 05:00 Room Air 08/31/23 04:00 97.8 F 75 18 166/74 H 97 Room Air 08/31/23 03:00 Room Air 08/31/23 01:00 Room Air 08/31/23 00:00 97.8 F 82 16 169/78 H 96 Room Air 08/30/23 22:49 Room Air 08/30/23 21:00 Room Air 08/30/23 20:00 Room Air 08/30/23 20:00 97.9 F 86 16 155/83 H 97 Room Air 08/30/23 16:00 97.8 F 78 16 173/68 H 97 Room Air 08/30/23 18:40 Room Air 08/30/23 17:15 Room Air 08/30/23 15:05 Room Air 08/30/23 13:10 Room Air 08/30/23 12:00 97.6 F 74 16 146/75 H 95 Room Air 08/30/23 11:05 Room Air 08/30/23 08:45 Room Air 08/30/23 09:00 Room Air 08/30/23 08:00 98.3 F 89 16 156/72 H 95 Room Air Intake and Output 08/30/23 08/31/23 08/31/23 19:59 03:59 11:59 Intake Total 3482 / 3482 Output Total 0 / 0 0 / 0 0 / 0 Balance 3482 / 3482 0 / 3482 0 / 3482 Intake: Intake, Oral Amount 720 / 720 Intake, Total IV Amount 2762 / 2762 Lactated Ringers 1000ML 1,000 2762 / 2762 ml @ 150 mls/hr IV .Q6H40M [facility] Rx#:[id number] Output: Output, Urine Amount 0 / 0 0 / 0 0 / 0 Other: Number of Unmeasured Voids 2 1 1 Number of Bowel Movements 1 Weight 146 lb 12.8 oz Patient Weight 08/31/23 11:59 Weight 146 lb 12.8 oz Laboratory Results - last 24 hr 08/30/23 08:30: WBC 6.6 D, RBC 3.97 L, Hgb 12.0 L D, Hct 36.3 L, MCV 91.6, MCH 30.3, MCHC 33.1, RDW 14.7, Plt Count 346, MPV 7.6, Neut % (Auto) 69.4, Lymph % (Auto) 22.2, [place] % (Auto) 7.7, Eos % (Auto) 0.5, Baso % (Auto) 0.2, Neut # (Auto) 4.6, Lymph # (Auto) 1.5, [place] # (Auto) 0.5, Eos # (Auto) 0.0, Baso # (Auto) 0.0, Total Counted 100, Neutrophils % (Manual) 73, Band Neutrophils % 1.0, Lymphocytes % (Manual) 16, Monocytes % (Manual) 10 H, Platelet Estimate Normal, RBC Morphology Normal, Sodium 137, Potassium 3.9 D, Chloride 105, Carbon Dioxide 26, Anion Gap 9.9, BUN 19 H D, Creatinine 2.10 H D, Estimated Creat Clear 22, Estimated GFR 23 L, Est GFR ( Amer) 27 L D, Glucose 210 H, Calcium 8.9 08/31/23 06:05: WBC 5.9, RBC 3.74 L, Hgb 11.4 L, Hct 33.5 L, MCV 89.5, MCH 30.4, MCHC 34.0, RDW 14.9, Plt Count 322, MPV 8.0, Neut % (Auto) 61.9, Lymph % (Auto) 28.8, [place] % (Auto) 7.6, Eos % (Auto) 1.3, Baso % (Auto) 0.4, Neut # (Auto) 3.6, Lymph # (Auto) 1.7, [place] # (Auto) 0.5, Eos # (Auto) 0.1, Baso # (Auto) 0.0, Sodium 138, Potassium 3.2 L, Chloride 104, Carbon Dioxide 31 H, Anion Gap 6.2, BUN 13 D, Creatinine 1.40 H D, Estimated Creat Clear 34, Estimated GFR 36 L, Est GFR ( Amer) 44 L D, Glucose 135 H D, Calcium 8.5 I & O for Labs for Last 24 Hours: Intake & Output 08/28/23 08/29/23 08/30/23 08/31/23 11:59 11:59 11:59 11:59 Intake Total 1150 / 1150 3482 / 3482 Output Total 0 / 0 0 / 0 Balance 1150 / 1150 3482 / 3482 Weight 169 lb 146 lb 5 oz 146 lb 12.8 oz Constitutional: Present no acute distress Comment:: Sitting up in bedside chair eating her breakfast. Appears comfortable. Head: Present other (Healing scabs on right forehead) Respiratory: Present CTA bilaterally (Anteriorly and posteriorly) Cardiac: Present Reg Rate and Rhythm GI: Present soft and normal bowel sounds; Absent distention, tenderness or guarding Extremities: Present normal inspection; Absent tenderness, edema or calf tenderness Neuro: Present alert and awake Comment:: Conversant Assessment and Plan *Assessment and plan (1) DAVID (acute kidney injury): Status: Acute Category: Medical Code(s): N17.9 - Acute kidney failure, unspecified (2) Shingles: Status: Acute Category: Medical Code(s): B02.9 - Zoster without complications (3) Fatigue: Status: Acute Category: Medical Code(s): R53.83 - Other fatigue (4) Gait disturbance: Status: Chronic Category: Medical Code(s): R26.9 - Unspecified abnormalities of gait and mobility (5) NPH (normal pressure hydrocephalus): Status: Suspected Category: Medical Code(s): G91.2 - (Idiopathic) normal pressure hydrocephalus (6) Hearing loss: Problem Comment: Bilateral hearing aids Status: Chronic Qualifiers: Hearing loss type: unspecified Laterality: bilateral Qualified Code(s): H91.93 - Unspecified hearing loss, bilateral Category: Medical Code(s): H91.90 - Unspecified hearing loss, unspecified ear (7) Weakness: Status: Chronic Category: Medical Code(s): R53.1 - Weakness (8) Type 2 diabetes mellitus: Status: Chronic Qualifiers: Diabetes mellitus buttermaker helper insulin use: without buttermaker helper use Diabetes mellitus complication status: with other specified complication Qualified Code(s): E11.69 - Type 2 diabetes mellitus with other specified complication Category: Medical Code(s): E11.9 - Type 2 diabetes mellitus without complications (9) Hypertension: Status: Acute Category: Medical Code(s): I10 - Essential (primary) hypertension (10) Hypothyroidism: Status: Acute Category: Medical Code(s): E03.9 - Hypothyroidism, unspecified Plan Patient has improved, plan discharge today with office f/u next week.
[2023-08-31 08:00] VITALS: BP 156/69; PULSE 81; RESP 17; TEMP 36.6; O2SAT 97
[2023-08-31] MEDS: AMLODIPINE 10MG TABLET 10 MG PO (09:10)
[2023-08-31] MEDS: DORZOLAMIDE OP (09:11)
[2023-08-31] MEDS: TIMOLOL OP (09:11)
[2023-08-31] MEDS: BRIMONIDINE 0.2% OPHTH SOLN 5ML BOTTLE OP (09:11)
--- NOTE | 2023-09-02 15:29 | CARE MANAGER ---
Addendum entered by Lisa Meredith RN 09/02/23 15:32: Patient did not have any new medications ordered. Original Note: CM called and spoke with patient regarding recent discharge. Patient aware of scheduled f/u appt, and has started new medication. No concerns voiced at time of call.
--- NOTE | 2023-09-05 22:54 | EXP.DC.SUM ---
General Admission date:: 08/29/23 Discharge date: 08/31/23 HPI HPI HPI: Ms. Ash is an 82 year old female patient of [facility] who see Dr. Roberson for her primary care. She presented to [facility] ER this morning complaining of weakness, difficulty walking and having hallucinations overnight. 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 She was seen at [facility] neurosurgery for an evaluation for a PORTFOLIO ANALYST shunt placement but the surgeon did not think a shunt was indicated at this time. Most recently, Ms. Ash was diagnosed with shingles on the right side of her face and was treated with an antiviral medication which she just finished. Hospital Course Hospital Course Hospital Course: The patient was admitted and IV fluids were started. By 08/30/2023, she was feeling better and wanted to go home. She was able to ambulate in the room without help. She did have some head discomfort in the right scalp area from her shingles outbreak. By 08/31/2023, her labs showed a normal white count and her creatinine improved from 2.1 to 1.4. She was stable to be discharged home and will follow-up in the office. Exam Data for Last 24 hours Vital signs and Labs for Last 24 Hours: Temp Pulse Resp BP Pulse Ox O2 Del Method 97.9 F 81 17 156/69 H 97 Room Air 08/31/23 08:00 08/31/23 08:00 08/31/23 08:00 08/31/23 08:00 08/31/23 08:00 08/31/23 09:01 Microbiology Reports for the Last 24 Hours: Microbiology 08/29/23 08:30 Blood Blood Culture - Final 08/29/23 09:38 Blood Blood Culture - Final Narrative: Constitutional Constitutional: no acute distress *Routine HEENT Exam Head: Present normocephalic Eye: Present EOMI and PERRL ENT: Present mucous membranes moist *Routine Neck Exam Neck: Present supple; Absent lymphadenopathy *Routine Respiratory Exam Respiratory: Present CTA bilaterally *Routine Cardiovascular Exam Cardiovascular: Present RRR *Routine Abdominal Exam Abdominal: Present soft and normoactive bowel sounds; Absent tenderness *Routine Rectal Exam Rectal:: deferred *Routine Genitalia Exam Genitalia:: deferred *Routine Extremities Exam Extremities: Absent cyanosis, clubbing or edema *Routine Skin Exam Skin: Present warm and rash (c/w shingles on right forehead) *Routine Neurological Exam Neurological: Present alert and oriented X3 DS: Diagnosis Discharge Diagnosis (1) DAVID (acute kidney injury): Status: Acute Code(s): N17.9 - Acute kidney failure, unspecified (2) Shingles: Status: Acute Code(s): B02.9 - Zoster without complications (3) Fatigue: Status: Acute Code(s): R53.83 - Other fatigue (4) Gait disturbance: Status: Chronic Code(s): R26.9 - Unspecified abnormalities of gait and mobility (5) NPH (normal pressure hydrocephalus): Status: Suspected Code(s): G91.2 - (Idiopathic) normal pressure hydrocephalus (6) Hearing loss: Status: Chronic Code(s): H91.90 - Unspecified hearing loss, unspecified ear Qualifiers: Hearing loss type: unspecified Laterality: bilateral Qualified Code(s): H91.93 - Unspecified hearing loss, bilateral Problem details: Bilateral hearing aids (7) Weakness: Status: Chronic Code(s): R53.1 - Weakness (8) Type 2 diabetes mellitus: Status: Chronic Code(s): E11.9 - Type 2 diabetes mellitus without complications Qualifiers: Diabetes mellitus manager terminal insulin use: without intermediate use Diabetes mellitus complication status: with other specified complication Qualified Code(s): E11.69 - Type 2 diabetes mellitus with other specified complication (9) Hypertension: Status: Acute Code(s): I10 - Essential (primary) hypertension (10) Hypothyroidism: Status: Acute Code(s): E03.9 - Hypothyroidism, unspecified Meds Home Medications and Allergies Home Medications Medication Instructions Recorded Confirmed Type amlodipine 10 mg tablet 10 mg PO DAILY Hypertension 90 days 08/17/17 08/29/23 History metformin 1,000 mg tablet 1,000 mg PO BIDWMEAL Diabetes 90 08/17/17 08/29/23 History days lisinopril 10 mg tablet 10 mg PO DAILY Hypertension 11/03/18 08/29/23 History fluoxetine 40 mg capsule 40 mg PO DAILY MOOD 08/15/21 08/29/23 History latanoprost 0.005 % eye drops 1 drp Eye-Both HS Glaucoma 02/24/23 08/29/23 History levothyroxine 25 mcg tablet 25 mcg PO DAILYDM 02/24/23 08/29/23 History brimonidine 0.2 % eye drops 1 drp Eye-Both BID Glaucoma 07/27/23 08/29/23 History pioglitazone 30 mg tablet 30 mg PO DAILY Diabetes 07/27/23 08/29/23 History dorzolamide 22.3 mg-timolol 6.8 1 drp Eye-Both BID Glaucoma 08/29/23 08/29/23 History mg/mL eye drops meloxicam 15 mg tablet 15 mg PO DAILY JOINT PAIN 08/29/23 08/29/23 History New Prescriptions to Start Prescriptions: Allergies Allergy/AdvReac Type Severity Reaction Status Date / Time Sulfa (Sulfonamide Allergy Mild Hives Verified 08/10/23 13:35 Antibiotics) [SULFA (SULFONAMIDE ANTIBIOTICS)] trimethoprim [From BACTRIM] Allergy Mild Hives Verified 08/10/23 13:35 Discharge Plan Disposition Patient Disposition: Home, Self-Care Condition: Fair Discharge Order Discharge Orders: Discharge Order (Routine); Ordered 08/31/23 Ordered By: Sergei Barbour Follow up Plan Follow up with: Isacc Roberson MD [Primary Care Provider] - 09/09/23 11:30 am Prescriptions/Medication Reconciliation: Continued amlodipine 10 mg tablet 10 mg PO DAILY 90 Days Patient Comments: metformin 1,000 mg tablet 1,000 mg PO BIDWMEAL 90 Days Patient Comments: lisinopril 10 mg tablet 10 mg PO DAILY levothyroxine 25 mcg tablet 25 mcg PO DAILYDM Patient Comments: TAKE ONE TABLET BY MOUTH EVERY DAY latanoprost 0.005 % drops 1 drp Eye-Both HS Patient Comments: INSTILL 1 DROP INTO EACH EYE AT BEDTIME brimonidine 0.2 % drops 1 drp Eye-Both BID Patient Comments: INSTILL 1 DROP INTO AFFECTED EYE(S) TWICE DAILY pioglitazone 30 mg tablet 30 mg PO DAILY Patient Comments: TAKE ONE TABLET BY MOUTH EVERY DAY fluoxetine 40 mg capsule 40 mg PO DAILY Patient Comments: TAKE 1 CAPSULE BY MOUTH ONCE DAILY meloxicam 15 mg tablet 15 mg PO DAILY Patient Comments: TAKE ONE TABLET BY MOUTH EVERY DAY --TAKE WITH FOOD-- dorzolamide-timolol 22.3-6.8 mg/mL drops 1 drp Eye-Both BID Patient Comments: INSTILL 1 DROP INTO EACH EYE TWICE DAILY Problem Reconciliation Problems Reviewed?: Yes Patient Discharge Instructions ACTIVITY: Continue current activity DIET: continue same diet Patient Instructions: DI for Shingles, DI for Fatigue, Physical Activity and Therapy May Decrease Fatigue in People with Rheumatoi, DI for Acute Kidney Injury Providers Primary Care Provider: Isacc Roberson Admit Provider: Bryn Mercedes Attending Provider: Sergei Barbour
== END 2023-08-31 10:17 | disposition home or self-care (01) | DRG 683 ==
LOC: ER 09:39 → 2ND 09:55
PROVIDERS: Nurse Practitioner Family; Admitting Provider Internal Medicine Adolescent Medicine; Emergency Provider Student in an Organized Health Care Education/Training Program; PCP Family Medicine; Visit Provider Family Medicine
DX: N17.9 Acute kidney failure, unspecified (principal); G91.2 (Idiopathic) normal pressure hydrocephalus; R44.3 Hallucinations, unspecified; B02.9 Zoster without complications; R53.83 Other fatigue; R26.9 Unspecified abnormalities of gait and mobility; H91.93 Unspecified hearing loss, bilateral; E11.69 Type 2 diabetes mellitus with other specified complication; I10 Essential (primary) hypertension; E03.9 Hypothyroidism, unspecified; E11.9 Type 2 diabetes mellitus without complications
CPT/HCPCS: 36415; 70450; 71045; 80048; 80053; 81001; 83605; 84484; 85007; 85014; 85018; 85025; 85048; 85049; 87040; 93005; 97162; 99291

== ENCOUNTER 2024-04-15 12:17 | Emergency (ER) | payer MEDICARE, SELFPAY ==
[2024-04-15 13:25] VITALS: BP 178/71; PULSE 73; RESP 16; TEMP 36.6; O2SAT 97; BMI 33.2
--- NOTE | 2024-04-15 13:48 | ED_ITS ---
Discharge Plan Disposition Patient Disposition: Home, Self-Care Condition: Good Prescriptions Prescriptions: New azithromycin 250 mg tablet See Rx Instructions .ROUTE .COMPLEX Qty: 6 0RF Rx Instructions: For 250 mg dose pack: take 500 mg today (day 1), then 250 mg for 4 days (days 2-5) benzonatate 100 mg capsule 100 mg PO TID PRN (Reason: cough) Qty: 30 0RF loratadine 10 mg tablet 10 mg PO DAILY Qty: 30 2RF No Action amlodipine 10 mg tablet 10 mg PO DAILY 90 Days Patient Comments: metformin 1,000 mg tablet 1,000 mg PO BIDWMEAL 90 Days Patient Comments: lisinopril 10 mg tablet 10 mg PO DAILY levothyroxine 25 mcg tablet 25 mcg PO DAILYDM Patient Comments: TAKE ONE TABLET BY MOUTH EVERY DAY latanoprost 0.005 % drops 1 drp Eye-Both HS Patient Comments: INSTILL 1 DROP INTO EACH EYE AT BEDTIME brimonidine 0.2 % drops 1 drp Eye-Both BID Patient Comments: INSTILL 1 DROP INTO AFFECTED EYE(S) TWICE DAILY pioglitazone 30 mg tablet 30 mg PO DAILY Patient Comments: TAKE ONE TABLET BY MOUTH EVERY DAY fluoxetine 40 mg capsule 40 mg PO DAILY Patient Comments: TAKE 1 CAPSULE BY MOUTH ONCE DAILY aspirin 81 mg tablet,delayed release (DR/EC) 81 mg PO WEEKLY dorzolamide-timolol 22.3-6.8 mg/mL drops 1 drp Eye-Both BID Patient Comments: INSTILL 1 DROP INTO EACH EYE TWICE DAILY Referrals Follow up/Referrals: Isacc Roberson MD [Primary Care Provider] - See instructions Activity Restrictions/Add. Instructions Additional Instructions/Restrictions: If symptoms worsen or no improvement in a week, may start antibiotic. Take medication as prescribed. Increase fluids and rest. Return to clinic or go to pcp if symptoms persist or worsen. Clinical Impressions Clinical Impression: Upper respiratory tract infection Instructions Patient Instructions: DI for Viral Upper Respiratory Infection -- Adult Print Language Print Language: Armenian Discharge ED Provider: Sosa Ye [facility] HPI General Stated complaint: congestion, sore throat, runny nose Mode of Arrival: Ambulatory Source of Information: Patient Limitations: No Limitations Time Seen by Provider: 04/15/24 13:45 Description of Symptoms (Recalled from Triage Doc. by RN): Complaint of cough and scratchy throat. HEENT Symptoms (Recalled from RN notes): Yes Resp Symptoms (Recalled from RN notes): No Skin Symptoms (Recalled from RN notes): No MS Symptoms (Recalled from RN notes): No Functional Status (Recalled from RN notes): wnl History of Present Illness Provider Complaint: Pt relates that for the last few days she has had sinus drainage and cough. She states that she has used cough drops for her symptoms. Related Data Home Medications ?Medication ?Instructions ?Recorded ?Confirmed amlodipine 10 mg tablet 10 mg PO DAILY Hypertension 90 days 08/17/17 02/10/24 metformin 1,000 mg tablet 1,000 mg PO BIDWMEAL Diabetes 90 08/17/17 02/10/24 days lisinopril 10 mg tablet 10 mg PO DAILY Hypertension 11/03/18 02/10/24 fluoxetine 40 mg capsule 40 mg PO DAILY MOOD 08/15/21 02/10/24 latanoprost 0.005 % eye drops 1 drp Eye-Both HS Glaucoma 02/24/23 02/10/24 levothyroxine 25 mcg tablet 25 mcg PO DAILYDM 02/24/23 02/10/24 brimonidine 0.2 % eye drops 1 drp Eye-Both BID Glaucoma 07/27/23 02/10/24 pioglitazone 30 mg tablet 30 mg PO DAILY Diabetes 07/27/23 02/10/24 dorzolamide 22.3 mg-timolol 6.8 1 drp Eye-Both BID Glaucoma 08/29/23 02/10/24 mg/mL eye drops aspirin 81 mg tablet,delayed 81 mg PO WEEKLY 12/07/23 02/10/24 release Previous Rx's ?Medication ?Instructions ?Recorded azithromycin 250 mg tablet See Rx Instructions PO .COMPLEX #6 04/15/24 tabs benzonatate 100 mg capsule 100 mg PO TID PRN cough #30 caps 04/15/24 loratadine 10 mg tablet 10 mg PO DAILY #30 tabs 04/15/24 Allergies Allergy/AdvReac Type Severity Reaction Status Date / Time Sulfa (Sulfonamide Allergy Mild Hives Verified 02/10/24 14:39 Antibiotics) [SULFA (SULFONAMIDE ANTIBIOTICS)] trimethoprim [From BACTRIM] Allergy Mild Hives Verified 02/10/24 14:39 Worker's Comp Is this a Worker's Comp case?: No [facility] Disclaimer: The information contained in this section may have been updated after the patient was seen, as this information can be updated by other users. Medical History Colon polyps Ocular histoplasmosis Right humeral fracture Acute hip pain Hearing loss Bilateral hearing aids Bilateral tinnitus Osteoarthritis Depression Hypothyroidism Hyperlipidemia Hypertension Type 2 diabetes mellitus Surgical History H/O thyroidectomy History of partial hysterectomy History of total left knee replacement Family History Other Cancer Coronary artery disease Social History Smoking Status: Never smoker second hand exposure: Yes alcohol intake: never counseling provided: none current occupational status: retired Travel in the last 8 weeks: None household members: none housing: house education level: high school current occupational exposures/hazards: No caffeine: No ROS Obtained: Yes All systems reviewed & no additional complaints except as documented Constitutional Constitutional: Reports system reviewed and no additional complaints, except as documented, Reports headache(s) and Reports malaise Eyes Eyes: Reports system reviewed and no additional complaints, except as documented ENT Ears, Nose, Mouth, and Throat: Reports system reviewed and no additional complaints, except as documented, Reports headache(s), Reports nasal congestion, Reports nasal discharge, Reports sinus pressure and Reports sore throat Cardiovascular Cardiovascular: Reports system reviewed and no additional complaints, except as documented Respiratory Respiratory: Reports system reviewed and no additional complaints, except as documented, Reports chest congestion and Reports cough Gastrointestinal Gastrointestingal: Reports system reviewed and no additional complaints, except as documented Genitourinary Female Genitourinary: Reports system reviewed and no additional complaints, except as documented Musculoskeletal Musculoskeletal: Reports system reviewed and no additional complaints, except as documented Integumentary/Breasts Skin/Breast: Reports system reviewed and no additional complaints, except as documented Neurologic Neurologic: Reports system reviewed and no additional complaints, except as documented and Reports headache(s) Endocrine Endocrine: Reports system reviewed and no additional complaints, except as documented Hematologic/Lymphatic Henatologic/Lymphatic: Reports system reviewed and no additional complaints, except as documented Allergic/Immunologic Allergic/Immunologic: Reports system reviewed and no additional complaints, except as documented Physical Exam General General appearance: alert and in no apparent distress Head Head exam: atraumatic and normocephalic Eye Eye exam: Present normal appearance ENT ENT exam: Present mucous membranes moist Expanded ENT Exam External ear exam: Present normal external inspection TM/Canal exam: Bilateral TM: bulging and effusion Nasal speculum exam: Bilateral: other (clear drainage) Mouth exam: Present normal external inspection Teeth exam: Present normal inspection Throat exam: Present normal inspection Neck Neck exam: Present normal inspection; Absent lymphadenopathy Chest Chest inspection: Present normal inspection and symmetric chest wall rise Respiratory Respiratory exam: Present other (course sounds present throughout) Cardiovascular Cardiovascular exam: Present regular rate, normal rhythm and systolic murmur Abdominal Exam Abdominal exam: Present soft and normal bowel sounds Extremities Exam Extremities exam: Present normal inspection and normal capillary refill Back Exam Back exam: Present normal inspection Neurological Exam Neurological exam: Present alert and oriented X3 Psychiatric Psychiatric exam: Present normal affect and normal mood Skin Skin exam: Present warm, dry and intact Lymphatic Lymphatic Findings: no adenopathy Medical Decision Making Medical Records Screening: Per USPSTF and CDC recommendations, given the prevalence of disease in our region, it is our hospital?s policy to screen for HIV and viral Hepatitis for all patients aged 18 and over and those with ongoing risk factors. Alessandro Inquiry Pt receiving controlled substance: No Alessandro was queried for this patient: No Vital Signs: 04/15/24 13:25 Temperature 97.8 F Temperature Source Oral Pulse Rate [Radial] 73 Respiratory Rate 16 Blood Pressure [Right Arm] 178/71 H Blood Pressure Mean [Right Arm] 106 Blood Pressure Source [Right Arm] Automatic Cuff Blood Pressure Position [Right Arm] Sitting 02 Sat by Pulse Oximetry 97 Oxygen Delivery Method Room Air
[2024-04-15 14:09] VITALS: BP 178/71; PULSE 73; RESP 16; TEMP 36.6; O2SAT 97
== END 2024-04-15 14:17 | disposition home or self-care (01) ==
PROVIDERS: Emergency Provider Nurse Practitioner Family; PCP Family Medicine
DX: R05.9 Cough, unspecified (principal); J06.9 Acute upper respiratory infection, unspecified
CPT/HCPCS: 99212; 99214; G0463

== ENCOUNTER 2024-04-18 13:58 | Emergency (ER) | payer MEDICARE, SELFPAY ==
[2024-04-18 14:15] VITALS: BP 142/79; PULSE 84; RESP 19; TEMP 36.9; O2SAT 96; BMI 33.2
--- NOTE | 2024-04-18 14:15 | ED_ITS ---
Discharge Plan Disposition Patient Disposition: Home, Self-Care Condition: Good Prescriptions Prescriptions: New methylprednisolone 4 mg Tablets,Dose Pack 4 mg PO DIRECTED 6 Days Qty: 21 0RF Rx Instructions: Take 1 pack as directed for 6 days promethazine-DM 6.25-15 mg/5 mL Syrup 5 ml PO Q6H PRN (Reason: Cough) Qty: 240 0RF levofloxacin 500 mg tablet 500 mg PO DAILY Qty: 7 0RF No Action amlodipine 10 mg tablet 10 mg PO DAILY 90 Days Patient Comments: metformin 1,000 mg tablet 1,000 mg PO BIDWMEAL 90 Days Patient Comments: lisinopril 10 mg tablet 10 mg PO DAILY levothyroxine 25 mcg tablet 25 mcg PO DAILYDM Patient Comments: TAKE ONE TABLET BY MOUTH EVERY DAY latanoprost 0.005 % drops 1 drp Eye-Both HS Patient Comments: INSTILL 1 DROP INTO EACH EYE AT BEDTIME brimonidine 0.2 % drops 1 drp Eye-Both BID Patient Comments: INSTILL 1 DROP INTO AFFECTED EYE(S) TWICE DAILY pioglitazone 30 mg tablet 30 mg PO DAILY Patient Comments: TAKE ONE TABLET BY MOUTH EVERY DAY fluoxetine 40 mg capsule 40 mg PO DAILY Patient Comments: TAKE 1 CAPSULE BY MOUTH ONCE DAILY aspirin 81 mg tablet,delayed release (DR/EC) 81 mg PO WEEKLY dorzolamide-timolol 22.3-6.8 mg/mL drops 1 drp Eye-Both BID Patient Comments: INSTILL 1 DROP INTO EACH EYE TWICE DAILY azithromycin 250 mg tablet See Rx Instructions .ROUTE .COMPLEX Qty: 6 0RF Rx Instructions: For 250 mg dose pack: take 500 mg today (day 1), then 250 mg for 4 days (days 2-5) benzonatate 100 mg capsule 100 mg PO TID PRN (Reason: cough) Qty: 30 0RF loratadine 10 mg tablet 10 mg PO DAILY Qty: 30 2RF Referrals Follow up/Referrals: Isacc Roberson MD [Primary Care Provider] - See instructions Activity Restrictions/Add. Instructions Additional Instructions/Restrictions: Drink plenty of fluids. Take tylenol for pain or fever. Take the medications as directed. Follow up with your regular doctor. GO TO THE ER FOR ANY WORSENING SYMPTOMS The cough medication (promethazine dm) will make you drowsy, so don't drive or operate heavy machinery after taking it. Clinical Impressions Clinical Impression: Acute bronchitis, Sinusitis Instructions Patient Instructions: DI for Sinusitis, DI for Acute Bronchitis Print Language Print Language: Georgian Discharge ED Provider: Eduardo Carrillo [facility] [place] HPI General Stated complaint: fever cough and head congestion Time Seen by Provider: 04/18/24 14:14 History of Present Illness Provider Complaint: She states that she started having sinus congestion and chest congestion last week. She came here 4 days ago and was prescribed azithromycin pack and tessalon perles. She states that she is not getting better. She denies any fever/chills. Related Data Home Medications ?Medication ?Instructions ?Recorded ?Confirmed amlodipine 10 mg tablet 10 mg PO DAILY Hypertension 90 days 08/17/17 04/18/24 metformin 1,000 mg tablet 1,000 mg PO BIDWMEAL Diabetes 90 08/17/17 04/18/24 days lisinopril 10 mg tablet 10 mg PO DAILY Hypertension 11/03/18 04/18/24 fluoxetine 40 mg capsule 40 mg PO DAILY MOOD 08/15/21 04/18/24 latanoprost 0.005 % eye drops 1 drp Eye-Both HS Glaucoma 02/24/23 04/18/24 levothyroxine 25 mcg tablet 25 mcg PO DAILYDM 02/24/23 04/18/24 brimonidine 0.2 % eye drops 1 drp Eye-Both BID Glaucoma 07/27/23 04/18/24 pioglitazone 30 mg tablet 30 mg PO DAILY Diabetes 07/27/23 04/18/24 dorzolamide 22.3 mg-timolol 6.8 1 drp Eye-Both BID Glaucoma 08/29/23 04/18/24 mg/mL eye drops aspirin 81 mg tablet,delayed 81 mg PO WEEKLY 12/07/23 04/18/24 release Previous Rx's ?Medication ?Instructions ?Recorded azithromycin 250 mg tablet See Rx Instructions PO .COMPLEX #6 04/15/24 tabs benzonatate 100 mg capsule 100 mg PO TID PRN cough #30 caps 04/15/24 loratadine 10 mg tablet 10 mg PO DAILY #30 tabs 04/15/24 levofloxacin 500 mg tablet 500 mg PO DAILY #7 tabs 04/18/24 methylprednisolone 4 mg tablets in 4 mg PO DIRECTED 6 days #21 tabs 04/18/24 a dose pack promethazine-DM 6.25 mg-15 mg/5 mL 5 ml PO Q6H PRN Cough #240 mL 04/18/24 oral syrup Allergies Allergy/AdvReac Type Severity Reaction Status Date / Time Sulfa (Sulfonamide Allergy Mild Hives Verified 02/10/24 14:39 Antibiotics) [SULFA (SULFONAMIDE ANTIBIOTICS)] trimethoprim [From BACTRIM] Allergy Mild Hives Verified 02/10/24 14:39 PFSH PFS Disclaimer: The information contained in this section may have been updated after the patient was seen, as this information can be updated by other users. Medical History Colon polyps Ocular histoplasmosis Right humeral fracture Acute hip pain Hearing loss Bilateral hearing aids Bilateral tinnitus Osteoarthritis Depression Hypothyroidism Hyperlipidemia Hypertension Type 2 diabetes mellitus Surgical History H/O thyroidectomy History of partial hysterectomy History of total left knee replacement Family History Other Cancer Coronary artery disease Social History Smoking Status: Never smoker second hand exposure: Yes alcohol intake: never counseling provided: none current occupational status: retired Travel in the last 8 weeks: None household members: none housing: house education level: high school current occupational exposures/hazards: No caffeine: No ROS Obtained: Yes All systems reviewed & no additional complaints except as documented Constitutional Constitutional: Reports poor appetite Eyes Eyes: Reports system reviewed and no additional complaints, except as documented ENT Ears, Nose, Mouth, and Throat: Reports as per HPI Cardiovascular Cardiovascular: Reports system reviewed and no additional complaints, except as documented and Denies chest pain Respiratory Respiratory: Denies shortness of breath, Reports chest congestion, Reports cough, Denies stridor and Denies wheezing Gastrointestinal Gastrointestingal: Reports system reviewed and no additional complaints, except as documented; Denies abdominal pain, diarrhea or vomiting Musculoskeletal Musculoskeletal: Reports system reviewed and no additional complaints, except as documented and Denies arthralgias Integumentary/Breasts Skin/Breast: Reports system reviewed and no additional complaints, except as documented and Denies rash Neurologic Neurologic: Denies paresthesias Allergic/Immunologic Allergic/Immunologic: Denies wheezing Physical Exam General General appearance: alert and in no apparent distress Head Head exam: atraumatic, normocephalic and normal inspection Eye Eye exam: Present normal appearance, PERRL and EOMI ENT ENT exam: Present normal exam, normal oropharynx, mucous membranes moist, TM's normal bilaterally and normal external ear exam Neck Neck exam: Present normal inspection, full ROM and trachea midline; Absent me ningismus or lymphadenopathy Chest Chest inspection: Present normal inspection and symmetric chest wall rise; Absent tenderness Respiratory Respiratory exam: Present normal lung sounds bilaterally; Absent respiratory distress Cardiovascular Cardiovascular exam: Present regular rate and normal rhythm; Absent JVD Abdominal Exam Abdominal exam: Present soft and normal bowel sounds; Absent distention, ten derness or guarding Extremities Exam Extremities exam: Present normal inspection, full ROM and normal capillary refill; Absent calf tenderness Back Exam Back exam: Present normal inspection; Absent tenderness Neurological Exam Neurological exam: Present alert and oriented X3 Psychiatric Psychiatric exam: Present normal affect and normal mood Skin Skin exam: Present warm, dry, intact and normal color Lymphatic Lymphatic Findings: no adenopathy Medical Decision Making Medical Records Medical records reviewed: No I reviewed the patient's medical records. Screening: Per USPSTF and CDC recommendations, given the prevalence of disease in our region, it is our hospital?s policy to screen for HIV and viral Hepatitis for all patients aged 18 and over and those with ongoing risk factors. Alessandro Inquiry Pt receiving controlled substance: No Lab Data Lab results reviewed: Yes I reviewed the patient's lab results.
--- NOTE | 2024-04-18 14:54 | XR_ITS ---
FINAL REPORT CLINICAL HISTORY: cough, congestion, hx asthma COMPARISON: 08/29/2023 FINDINGS: TWO-VIEW CHEST The heart size is normal. The mediastinum is normal. The lungs are clear. There is no pneumothorax. IMPRESSION: No acute cardiopulmonary process. Reviewed, Interpreted and Dictated by Joe Simmons MD Transcribed by Janessa Taylor Authenticated and [facility]
[2024-04-18 15:25] VITALS: BP 142/79; PULSE 84; RESP 19; TEMP 36.9; O2SAT 96
[2024-04-18] MEDS: cefTRIAXone 1GM VIAL 1 GM IM (15:30)
[2024-04-18] MEDS: DEXAMETHASONE 4MG/ML 1ML VIAL 8 MG IM (15:30)
[2024-04-18] MEDS: LIDOCAINE 1% 5ML PF VIAL IM (15:30)
[2024-04-18 16:02] LABS: Adenovirus,PCR Not Detected (NotDetected); Bordetella Pertussis Not Detected (NotDetected); Chlamydophila Pneumoniae, PCR Not Detected (NotDetected); Coronavirus 19, PCR Not Detected (NotDetected); Coronavirus 229E Not Detected (NotDetected); Coronavirus NL63 Not Detected (NotDetected); Coronavirus OC43 Not Detected (NotDetected); Coronovirus HKU1,PCR Not Detected (NotDetected); Human Metapneumovirus Not Detected (NotDetected); Influenza A, PCR Not Detected (NotDetected); Influenza AH1, 2009 Not Detected (NotDetected); Influenza AH1, PCR Not Detected (NotDetected); Influenza AH3,PCR Not Detected (NotDetected); Influenza B, PCR Not Detected (NotDetected); Mycoplasma Pneumoniae, PCR Not Detected (NotDetected); Parainfluenza 1, PCR Not Detected (NotDetected); Parainfluenza 2, PCR Not Detected (NotDetected); Parainfluenza 3, PCR Not Detected (NotDetected); Parainfluenza 4, PCR Not Detected (NotDetected); Respiratory Syncytial Virus Not Detected (NotDetected); Rhinovirus/Enterovirus Not Detected (NotDetected)
== END 2024-04-18 15:47 | disposition home or self-care (01) ==
PROVIDERS: Emergency Provider Nurse Practitioner Family; PCP Family Medicine
DX: J01.90 Acute sinusitis, unspecified (principal); R50.9 Fever, unspecified; J20.9 Acute bronchitis, unspecified
CPT/HCPCS: 71046; 87265; 87486; 87581; 87632; 87635; 99213; G0381; J0696; J1100

== ENCOUNTER 2024-06-30 11:32 | Outpatient (CLI) | payer MEDICARE, SELFPAY ==
[2024-06-30 12:36] LABS: Albumin Level 4.3 g/dl (3.5-5.0); Chloride 105 mmol/L (98-107); Sodium 139 mmol/L (136-145)
[2024-06-30 12:39] LABS: Alanine Aminotransferase 19 U/L (12-78); Albumin/Globulin Ratio 1.8 (1.1-1.8); Alkaline Phosphatase 68 U/L (38-126); Aspartate Amino Transferase 30 U/L (14-36); Bilirubin,Total 0.5 mg/dl (0.2-1.3); Blood Urea Nitrogen 20 mg/dl (7-17); Carbon Dioxide 28 mmol/L (22.0-30.0); Estimated Glomerular Filt Rate 60 ml/min (>60); GFR (African American) 73 ML/MIN (>60); Globulin 2.4 g/dL (1.3-3.2); Total Protein,Serum 6.7 g/dl (6.3-8.2); Triglycerides 132 mg/dl (30-150); VLDL Cholesterol 26 mg/dL (0-40)
[2024-06-30 12:40] LABS: Calcium 9.7 mg/dl (8.4-10.2); Chol/HDL Ratio 2.6 (1-3.5); Cholesterol 164 mg/dl (140-200); Glucose 145 mg/dl (74-100); HDL Cholesterol 62 mg/dl (40-60)
[2024-06-30 12:41] LABS: Anion Gap 11.2 mEq/L (5-15); Potassium 5.2 mmoL/L (3.5-5.1)
[2024-06-30 12:54] LABS: Direct LDL Cholesterol 53.36 mg/dL (100-129)
[2024-06-30 14:23] LABS: Hemoglobin A1C 6.5 % (4.0-6.0)
== END 2024-06-30 23:59 | disposition home or self-care (01) ==
LOC: LAB 11:35
PROVIDERS: PCP Family Medicine; Visit Provider Family Medicine
DX: E11.9 Type 2 diabetes mellitus without complications (principal); I10 Essential (primary) hypertension; E78.5 Hyperlipidemia, unspecified; E89.0 Postprocedural hypothyroidism
CPT/HCPCS: 36415; 80053; 80061; 83036; 84443